=== PATIENT | female | born 1940 | race Caucasian/White ===

== ENCOUNTER → 2016-12-12 | Outpatient (CLI) | payer OTHER ==
[~2016-12-12] MED LIST: ALBU1AER9 INH; ASPI-435 PO; BUPR-79 PO; BUSP30TA2 PO; CHOL200010 PO; CLON0.5T3 PO; DULO60CA44 PO; ELET40TA PO; ESTR1CRE PV; FLUT0.15 INTNAS; LEVO75TA PO; LIDO1PAD2 TOP; NABU500T3 PO; OMEP40CA41 PO; OXYB10TA PO; OXYC7.5T65 PO; POLY335019 PO; PREG75CA PO; RXC5 PO; SIMV40TA4 PO; ZOLP10TA6 PO
--- NOTE | 2016-12-12 15:50 | DIAGNOSTIC IMAGING REPORT ---
TWO VIEW CHEST CLINICAL HISTORY: Cough of several weeks' duration. FINDINGS: PA and lateral chest radiographs are compared to chest x-ray and chest CT dated 04/30/2015. The PA view is degraded by patient rotation. The cardiomediastinal silhouette is unremarkable. Chronic interstitial thickening is similar to previous. There are subtle airspace opacities throughout the right lung. The left lung appears clear. No pleural effusion or pneumothorax is seen. The skeletal structures are osteopenic. A right shoulder arthroplasty is in place. There is evidence of a lower thoracic compression deformity with previous vertebroplasty. IMPRESSION: Subtle airspace opacities are seen throughout the right lung. This likely represents a mild infectious/inflammatory pneumonitis. Clinical correlation will be required and radiographic follow-up to resolution is recommended. Electronically signed by: Nathaniel Maldonado M.D. 12/12/2016 3:48 PM Dictated Date/Time: 12/12/2016 3:46 PM
== END | disposition home or self-care (01) ==
LOC: C.RAD 15:22
PROVIDERS: ATTEND Physician Assistant
DX: R05 Cough (principal)

== ENCOUNTER → 2017-02-22 | Outpatient (CLI) | payer OTHER | END | disposition home or self-care (01) | LOC: C.LABSPEC 16:59 | PROVIDERS: ATTEND Podiatrist Foot & Ankle Surgery | DX: L60.0 Ingrowing nail (principal) ==

== ENCOUNTER → 2017-12-21 | Outpatient (CLI) | payer MEDICARE ==
[~2017-12-21] MED LIST changes: -ALBU1AER9 INH; +CLB/200 PO; -CLON0.5T3 PO; +CLON0.5T9 PO; -ESTR1CRE PV; -FLUT0.15 INTNAS; -LIDO1PAD2 TOP; +LIDO5CRE13 TOP; -NABU500T3 PO; -RXC5 PO; +VNTHFA/IN INH
--- NOTE | 2017-12-21 15:12 | DIAGNOSTIC IMAGING REPORT ---
CERVICAL SPINE 2 OR 3 VIEWS HISTORY: Preoperative evaluation PREOP, RHEUMATOID ARTHRITIS COMPARISON: None. FINDINGS: The cervical spine is visualized from C1 through the superior endplate of T1. There is no fracture. No significant subluxation on a positional basis. Considerable degenerative disc change Prevertebral soft tissues and the atlantodens interval are intact. IMPRESSION: No evidence for subluxation on a positional basis. Degenerative disc change throughout. The above report was generated using voice recognition software. It may contain grammatical, syntax or spelling errors. Electronically signed by: Austin Villagran M.D. 12/21/2017 3:11 PM Dictated Date/Time: 12/21/2017 3:11 PM
[2017-12-21 15:42] LABS: BASO % 0.5 %; BASO ABS # 0.05 K/uL (0-0.2); EOS % 2.1 %; HEMATOCRIT 37.8 % (37-47); HEMOGLOBIN 12.5 g/dL (12.0-16.0); IG# 0.06 K/uL (0.00-0.02); LYMPH % 31.1 %; LYMPH ABS # 2.93 K/uL (1.2-3.4); MEAN CELL VOLUME 94.7 fL (80-100); MEAN CORPUSCULAR HEMOGLOBIN 31.3 pg (25-34); MEAN CORPUSCULAR HGB CONC 33.1 g/dl (32-36); MEAN PLATELET VOLUME 9.6 fL (7.4-10.4); MONO % 9.2 %; MONO ABS # 0.87 K/uL (0.11-0.59); NEUT % 56.5 %; NEUT ABS # 5.31 K/uL (1.4-6.5); PLATELET COUNT 335 K/uL (130-400); RED CELL DISTRIBUTION WIDTH CV 13.3 % (11.5-14.5); RED CELL DISTRIBUTION WIDTH SD 46.7 fL (36.4-46.3); WHITE BLOOD COUNT 9.42 K/uL (4.8-10.8)
[2017-12-21 15:51] LABS: BLOOD UREA NITROGEN 15 mg/dl (7-18); CALCIUM 9.1 mg/dl (8.5-10.1); CARBON DIOXIDE 29 mmol/L (21-32); CREATININE 0.94 mg/dl (0.60-1.20); GLUCOSE 143 mg/dl (70-99); POTASSIUM 4.7 mmol/L (3.5-5.1); SODIUM 137 mmol/L (136-145)
[2017-12-21 15:54] LABS: PTT PATIENT 24.7 SECONDS (21.0-31.0)
== END | disposition home or self-care (01) ==
LOC: C.CPL 13:23
PROVIDERS: ATTEND Orthopaedic Surgery Sports Medicine
DX: Z01.818 Encounter for other preprocedural examination (principal); M06.9 Rheumatoid arthritis, unspecified

== ENCOUNTER 2019-02-13 18:30 | Inpatient (IN) ==
[2019-02-13] MEDS ORDERED: ONDANSETRON INJ 2 MG/ML 2 ML VIAL IV STA (18:52)
[2019-02-13] MEDS ORDERED: SODIUM CHLORIDE 0.9% 500 ML IV SCH (19:00)
--- NOTE | 2019-02-13 19:23 | Emergency Department Note ---
Entered by Ezekiel Shaw acting as a scribe for History of Present Illness General Chief complaint: Fall Stated complaint: FELL AT HOME,POSSIBLE STROKE Time Seen by Provider: 02/13/19 18:42 Source: patient and family (son) Limitations: no limitations History of Present Illness Onset (ago): hour(s) (From 10 hours to 2 hours) Location: abdomen Pain Consistency: + constant Maximum Pain Intensity: 5 Quality: + constant Associated symptoms: + nausea/vomiting and + other (back pain, different speech, fall) The patient is a 78 year old female who presents to the Emergency Room with complaints of constant abdominal pain. The patient's son states he came home at 1700 and saw that the patient was laying on the ground on her right side. He states he is unsure how long the patient was on the floor. The son states his saw the patient at 0900 and she was fine at that time. The patient states she remembers being on the floor and states she was on the floor for a long time. The patient states she vomited multiple times. She states she is nauseous. She notes she is unable to see. The patient's son states the patient attempted to overdose 3 times in the past. He states the patient is waiting for her med ication right now and is a couple days off her medication. The patient states she took all her medication she was supposed to take today. The son states the patient has been complaining about her back for the past week, but notes she has chronic back pain. The patient's son notes the patient's speech is not normal right now. The patient states she did not hurt anything and does not remember falling. Home Medications Home Medications Medication Instructions Recorded Confirmed Type levothyroxine 75 mcg PO QAM #0 tab 04/03/14 02/13/19 History omeprazole 40 mg PO QAM #0 cap 04/30/15 02/13/19 History simvastatin 40 mg PO HS #0 tab 04/30/15 02/13/19 History albuterol sulfate [ProAir HFA] 2 puff INHALATION Q4H PRN 03/27/18 02/13/19 History aspirin 81 mg PO DAILY 03/27/18 02/13/19 History cholecalciferol (vitamin D3) 2,000 unit PO DAILY 03/27/18 02/13/19 History [Vitamin D3] benzonatate [Tessalon Perles] 100 mg PO TID PRN 02/13/19 02/13/19 History buspirone 20 mg PO BID 02/13/19 02/13/19 History duloxetine 30 mg PO DAILY 02/13/19 02/13/19 History duloxetine 60 mg PO DAILY 02/13/19 02/13/19 History gabapentin 300 mg PO BID 02/13/19 02/13/19 History meclofenamate 100 mg PO BID 02/13/19 02/13/19 History olanzapine 5 mg PO HS 02/13/19 02/13/19 History oxybutynin chloride 10 mg PO DAILY 02/13/19 02/13/19 History sumatriptan succinate 25 mg PO DIRECTED PRN MDD 200 02/13/19 02/13/19 History MG/DAY zolpidem 5 mg PO HS 02/13/19 02/13/19 History Allergies Allergy/AdvReac Type Severity Reaction Status Date / Time hydroxychloroquine AdvReac Intermediate FULL BODY Verified 02/13/19 19:47 SWELLING Past Med/Surg History Medical History History of drug overdose (Chronic) History of suicide attempt (Chronic) History of migraine (Chronic) Hypertriglyceridemia (Chronic) ODIN (obstructive sleep apnea) (Chronic) Depression (Chronic) GERD (gastroesophageal reflux disease) (Chronic) Anxiety (Chronic) Bipolar disorder (Chronic) Fibromyalgia (Chronic) Osteoarthritis (Chronic) Hypothyroidism (Chronic) Diabetes mellitus (Chronic) Cardiac murmur Hx/o Chronic back pain Hyperlipidemia Rheumatoid arthritis Surgical History History of appendectomy (Resolved) History of total abdominal hysterectomy (Resolved) History of reverse total replacement of right shoulder joint (Resolved) Status post total knee replacement, left (Resolved) H/O kyphoplasty T 11 H/O: hysterectomy BSO History of right shoulder replacement History of total right knee replacement Hx of cataract surgery S/P appendectomy Status post breast reduction Family History Father Black lung disease Daughter Multiple sclerosis Suicide Son Paranoid schizophrenia Other No significant family history Social History Preferred Language: Faroese Communication Ability: Effective Visual Impairment: No Limitations [employer] Required: No Beliefs That Will Affect Care: Shinto Current Living Situation: Family Current Living Situation Comment: lives with son and daughter in law Feels Safe at Home: Yes Smoking Status: Never smoker Second Hand Exposure: No ; Hx Alcohol Use: No Hx Substance Use: No Review of Systems See HPI for pertinent positives & negatives. and A total of 10 systems reviewed and were otherwise negative Physical Exam Vital Signs Vital Signs - 24 hr 02/13/19 18:32 02/13/19 20:35 Sepsis Recent Fever Within 48 Hours No Sepsis New/Unexplained Change in Mental Status No Sepsis Action Taken by Nursing No Action Required Pulse Rate 86 Pulse Rate [Right Finger] 99 H Pulse Rhythm [Right Finger] Regular Pulse Strength [Right Finger] Normal Respiratory Rate 18 16 Respiratory Effort / Characteristics Non-Labored Non-Labored Respiratory Depth Normal Normal Respiratory Pattern Regular Blood Pressure 171/83 H Blood Pressure [Right Arm] 149/93 H Blood Pressure Mean 112 Blood Pressure Mean [Right Arm] 111 Blood Pressure Position [Right Arm] Lying Pulse Oximetry 93 94 Oxygen Delivery Method Room Air Room Air CONSTITUTIONAL/VITAL SIGNS: Reviewed / noted above. GENERAL: Non-toxic in appearance. Dried vomitus on the patient's face and nares. INTEGUMENTARY: Warm, dry, and [place]. HEAD: Normocephalic. EYES: without scleral icterus or trauma. ENT/OROPHARYNX: clear and moist. LYMPHADENOPATHY/NECK: Is supple without lymphadenopathy or meningismus. RESPIRATORY: Lungs clear and equal. CARDIOVASCULAR: Regular rate and rhythm. GI/ABDOMEN: Soft and nontender. No organomegaly or pulsatile mass. No rebound or guarding. Normal bowel sounds. EXTREMITIES: Warm and well perfused. BACK: No CVA tenderness. NEUROLOGICAL: Intact without focal deficits. PSYCHIATRIC: normal affect. MUSCULOSKELETAL: Normally developed with good muscle tone. Course 1842: The patient was evaluated in room A9B, and a complete history and physical examination were performed. 2128: I discussed the patient's case with Dr. Debora Parker Hospitalist. He will evaluate the patient for further management Administered Medications Discontinued Medications Sodium Chloride (Nss) 500 mls @ 999 mls/hr IV .Q31M BIANCA Stop: 02/13/19 19:30 Last Admin: 02/13/19 20:59 Dose: 999 mls/hr Documented by: [id number] Ondansetron HCl (Zofran) 4 mg IV NOW STA Stop: 02/13/19 18:53 Last Admin: 02/13/19 20:34 Dose: 4 mg Documented by: [id number] Medical Decision Making Differential Diagnosis Differential diagnoses includes but is not limited to gastroenteritis, food borne illness, infections, appendicitis, diverticulitis, inflammatory bowel disease, obstruction, GI bleed, biliary pathology, as well as others were entertained. Medical Records Attestation: I reviewed the patient's medical records. Home Medications Current Medication List: was personally reviewed by me Laboratory Data Attestation: I reviewed the patient's lab results. Result diagrams: 02/13/19 19:28 02/13/19 19:28 Lab Results 02/13/19 02/13/19 02/13/19 Range/Units 19:28 19:28 19:28 WBC 21.38 H (4.8-10.8) K/uL RBC 4.43 (4.2-5.4) M/uL Hgb 13.9 (12.0-16.0) g/dL Hct 41.1 (37-47) % MCV 92.8 (80-100) fL MCH 31.4 (25-34) pg MCHC 33.8 (32-36) g/dL RDW Std Deviation 45.5 (36.4-46.3) fL RDW Coeff of José Miguel 13.3 (11.5-14.5) % Plt Count 331 (130-400) K/uL MPV 8.8 (7.4-10.4) fL Immature Gran % (Auto) 1.0 % Neut % (Auto) 90.0 % Lymph % (Auto) 4.0 % [place] % (Auto) 4.8 % Eos % (Auto) 0.0 % Baso % (Auto) 0.2 % Immature Gran # (Auto) 0.21 H (0.00-0.02) K/uL Neut # (Auto) 19.24 H (1.4-6.5) K/uL Lymph # (Auto) 0.85 L (1.2-3.4) K/uL [place] # (Auto) 1.03 H (0.11-0.59) K/uL Eos # (Auto) 0.01 (0-0.5) K/uL Baso # (Auto) 0.04 (0-0.2) K/uL Sodium 139 (136-145) mmol/L Potassium 4.2 (3.5-5.1) mmol/L Chloride 101 (98-107) mmol/L Carbon Dioxide 28 (21-32) mmol/L Anion Gap 10.0 (3-11) BUN 13 (7-18) mg/dl Creatinine 0.78 (0.6-1.2) mg/dl Est Cr Clr Drug Dosing Not Reportable Est GFR ( Amer) 85.6 Est GFR (Non-Af Amer) 73.8 BUN/Creatinine Ratio 16.9 (10-20) Glucose 187 H (70-99) mg/dl Calcium 9.0 (8.5-10.1) mg/dl Magnesium 2.0 (1.8-2.4) mg/dl Total Bilirubin 0.4 (0.2-1) mg/dl AST 16 (15-37) U/L ALT 27 (12-78) U/L Alkaline Phosphatase 109 (45-117) U/L Total Creatine Kinase 58 (26-192) U/L Troponin I < 0.015 (0-0.045) ng/ml Total Protein 7.5 (6.4-8.2) gm/dl Albumin 3.8 (3.4-5.0) gm/dl Globulin 3.7 (2.5-4.0) gm/dl Albumin/Globulin Ratio 1.0 (0.9-2) Lipase 79 (73-393) U/L TSH 0.166 L (0.300-4.500) uIu/ml Free T4 1.23 (0.8-1.6) ng/dl Urine Color Urine Appearance (Clear) Urine pH (4.5-7.5) Ur Specific [place] (1.000-1.030) Urine Protein (Negative) Urine Glucose (UA) (Negative) Urine Ketones (Negative) Urine Blood (Negative) Urine Nitrite (Negative) Urine Bilirubin (Negative) Urine Urobilinogen (Negative) Ur Leukocyte Esterase (Negative) Acetaminophen < 2 L (10-30) ug/ml Ethyl Alcohol mg/dL (0-3) mg/dl 02/13/19 02/13/19 Range/Units 19:28 20:32 WBC (4.8-10.8) K/uL RBC (4.2-5.4) M/uL Hgb (12.0-16.0) g/dL Hct (37-47) % MCV (80-100) fL MCH (25-34) pg MCHC (32-36) g/dL RDW Std Deviation (36.4-46.3) fL RDW Coeff of José Miguel (11.5-14.5) % Plt Count (130-400) K/uL MPV (7.4-10.4) fL Immature Gran % (Auto) % Neut % (Auto) % Lymph % (Auto) % [place] % (Auto) % Eos % (Auto) % Baso % (Auto) % Immature Gran # (Auto) (0.00-0.02) K/uL Neut # (Auto) (1.4-6.5) K/uL Lymph # (Auto) (1.2-3.4) K/uL [place] # (Auto) (0.11-0.59) K/uL Eos # (Auto) (0-0.5) K/uL Baso # (Auto) (0-0.2) K/uL Sodium (136-145) mmol/L Potassium (3.5-5.1) mmol/L Chloride (98-107) mmol/L Carbon Dioxide (21-32) mmol/L Anion Gap (3-11) BUN (7-18) mg/dl Creatinine (0.6-1.2) mg/dl Est Cr Clr Drug Dosing Est GFR ( Amer) Est GFR (Non-Af Amer) BUN/Creatinine Ratio (10-20) Glucose (70-99) mg/dl Calcium (8.5-10.1) mg/dl Magnesium (1.8-2.4) mg/dl Total Bilirubin (0.2-1) mg/dl AST (15-37) U/L ALT (12-78) U/L Alkaline Phosphatase (45-117) U/L Total Creatine Kinase (26-192) U/L Troponin I (0-0.045) ng/ml Total Protein (6.4-8.2) gm/dl Albumin (3.4-5.0) gm/dl Globulin (2.5-4.0) gm/dl Albumin/Globulin Ratio (0.9-2) Lipase (73-393) U/L TSH (0.300-4.500) uIu/ml Free T4 (0.8-1.6) ng/dl Urine Color Yellow Urine Appearance Clear (Clear) Urine pH 7.0 (4.5-7.5) Ur Specific [place] 1.016 (1.000-1.030) Urine Protein Negative (Negative) Urine Glucose (UA) Negative (Negative) Urine Ketones Trace H (Negative) Urine Blood Negative (Negative) Urine Nitrite Negative (Negative) Urine Bilirubin Negative (Negative) Urine Urobilinogen Negative (Negative) Ur Leukocyte Esterase Negative (Negative) Acetaminophen (10-30) ug/ml Ethyl Alcohol mg/dL < 3.0 (0-3) mg/dl Imaging Data Radiologist's Impression: Radiology results as stated below per my review and the radiologist's interpretation: CT SCAN OF THE ABDOMEN AND PELVIS WITHOUT CONTRAST CLINICAL HISTORY: Unexplained vomiting COMPARISON STUDY: No previous studies for comparison. TECHNIQUE: CT scan of the abdomen and pelvis was performed from the lung bases to the proximal femurs. Images are reviewed in the axial, sagittal, and coronal planes. IV contrast was not administered for this examination. A dose lowering technique was utilized adhering to the principles of ALARA. CT DOSE: 1002.58 mGy.cm FINDINGS: Lower chest: There are right middle lobe opacities, statistically atelectatic. There are bilateral lower lobe atelectatic changes. Is a small hiatal hernia Liver: The unenhanced liver is normal in size, contour, and attenuation. There is no intrahepatic biliary ductal dilatation. Gallbladder: Gallbladder is of slightly increased density. Biliary sludge or calculi cannot be excluded. There is no wall thickening. Spleen: Normal in size and attenuation. Pancreas: Unremarkable. Adrenal glands: Unremarkable. Kidneys: No renal, ureteral, or bladder calculi identified. Bowel: There are no transition zones indicate bowel obstruction. There is no evidence of acute diverticulitis. There are scattered colonic diverticula present. There are no findings to indicate acute appendicitis. Peritoneum: There is no intraperitoneal free air or abdominal ascites. There is a small fat-containing umbilical hernia Vasculature: The abdominal aorta is normal in course and caliber. Adenopathy: None. Pelvic viscera: The uterus appears surgically absent Skeletal structures: There is a severe T11 compression fracture status post vertebroplasty. There is moderate retropulsion without spinal canal narrowing. There is inferior endplate T12 compression fracture which appears old. IMPRESSION: 1. No evidence of bowel obstruction. No evidence of free air 2. No acute inflammatory changes 3. No renal, ureteral, or bladder calculi identified 4. Old T11 compression fracture with moderate retropulsion and spinal canal narrowing. There is evidence for a prior vertebroplasty at this level Electronically signed by: Lamont Duque M.D. 02/13/2019 8:[address] head/brain wo con CLINICAL HISTORY: Vomiting, weakness. COMPARISON STUDY: 03/27/2018 TECHNIQUE: Axial CT of the brain is performed from the vertex to the skull base. IV contrast was not administered for this examination. A dose lowering technique was utilized adhering to the principles of ALARA. CT DOSE: FINDINGS: No intra or extra-axial mass lesions are visualized. There is no CT evidence of acute cortical infarction. There is no evidence of midline shift. There is no acute hemorrhage. No calvarial fractures are visualized. There are minimal white matter hypodensities likely on a small vessel basis. There is no evidence of pathologic ventricular dilatation. There is no evidence of acute sinusitis IMPRESSION: No acute intracranial findings Electronically signed by: Lamont Duque M.D. 02/13/2019 8:07 PM XR chest 1V portable CLINICAL HISTORY: weakness COMPARISON STUDY: 03/27/2018 FINDINGS: The heart is normal in size. There are bibasilar opacities left greater than right. Although likely atelectatic, infectious/inflammatory processes could appear similar. The upper lung zones are generally clear. There is no overt failure. There are no significant pleural effusions. There are postsurgical changes of a right reverse total shoulder arthroplasty. There is evidence for a prior vertebroplasty.[ IMPRESSION: 1. Increased basilar markings statistically atelectatic Electronically signed by: Lamont Duque M.D. 02/13/2019 7:48 PM ECG Data Attestation: I personally reviewed and interpreted this ECG as follows: Indication: abdominal pain, nausea and syncope Rate (beats per minute): 105 Rhythm: sinus tachycardia Findings: no ST elevation and no ectopy Blood Pressure Blood Pressure Findings: Elevated blood pressure Blood Pressure Disposition: further management by hospitalist SKYLAR Hamilton This is a 78-year-old female who presents to the ED with a chief complaint of nausea. The patient lives with her family but her family found her on the floor this evening. Her last known well was at 9 AM. She states that she was on the floor for a long time. The patient reports nausea. She states that she does not have any pain. She states that she has been vomiting today. She is somewhat of a poor historian. The son is present but cannot offer any additio nal information. She states that she was vomiting in the bag. He did not find any vomitus on the floor. The patient's initial blood pressure was elevated. Her physical exam did not reveal any abdominal tenderness. She has no obvious trauma. She does slur her speech which is not normal, per the son. The patient does not have any focal deficits on my exam. The patient's son states that she has slurred her speech in the past for various reasons including overdose of medication whether purposeful or by accident. Other than the slurring of the speech and somewhat difficult to understand, she does have some dried vomitus on the face. Her neurologic exam is otherwise without any focal deficits and her exam is without trauma. A CT scan of the head did not show acute process. CT scan of the abdomen and pelvis did not show any acute process. She has an old T11 compression fracture. White blood cell count is 21,000. Complete metabolic panel was unremarkable. Lipase is negative. Troponin was negative. Alcohol was negative. Tylenol level was negative. Urinalysis did not show infection. The patient was treated with some IV fluids as well as IV Zofran. She was told the results of the test. She continued having vomiting here. The patient was given IV Compazine for her continuation of vomiting. The patient will be seen by the hospitalist service for further evaluation and observation. The patient does have a leukocytosis. This could be related to just the vomiting. She has persistent vomiting and nausea. She is also having some slurred speech which is not normal for her. Impression & Plan Vomiting, Leukocytosis, Slurred speech Discharge Plan Visit Data Chief Complaint: Fall Stated Complaint: FELL AT HOME,POSSIBLE STROKE ED Provider: Eliud Davis Discharge Problem: Vomiting, Leukocytosis, Slurred speech Patient Disposition: Being Evaluated by Hospitalist Forms Stand Alone Forms: My [facility] Prescriptions Prescriptions: No Action levothyroxine 75 mcg Capsule 75 mcg PO QAM Qty: 0 RF: 0 omeprazole 40 mg Capsule,Delayed Release(Dr/Ec) 40 mg PO QAM Qty: 0 RF: 0 simvastatin 40 mg Tablet 40 mg PO HS Qty: 0 RF: 0 aspirin 81 mg Tablet,Delayed Release (Dr/Ec) 81 mg PO DAILY RF: 0 albuterol sulfate [ProAir HFA] 90 mcg/actuation Hfa Aerosol Inhaler 2 puff INHALATION Q4H PRN (Reason: Wheezing) RF: 0 cholecalciferol (vitamin D3) [Vitamin D3] 2,000 unit Capsule 2,000 unit PO DAILY RF: 0 buspirone 5 mg tablet 20 mg PO BID RF: 0 oxybutynin chloride 10 mg tablet extended release 24hr 10 mg PO DAILY RF: 0 sumatriptan succinate 25 mg tablet 25 mg PO DIRECTED MDD 200 MG/DAY PRN (Reason: Migraine Headache) RF: 0 olanzapine 5 mg tablet 5 mg PO HS RF: 0 zolpidem 5 mg tablet 5 mg PO HS RF: 0 gabapentin 100 mg capsule 300 mg PO BID RF: 0 meclofenamate 100 mg capsule 100 mg PO BID RF: 0 duloxetine 30 mg capsule,delayed release(DR/EC) 30 mg PO DAILY RF: 0 duloxetine 60 mg capsule,delayed release(DR/EC) 60 mg PO DAILY RF: 0 benzonatate [Tessalon Perles] 100 mg capsule 100 mg PO TID PRN (Reason: Cough) RF: 0 Referrals Referrals: PCP,NO [Primary Care Provider] - Discharge Problem: Vomiting Qualifiers: Vomiting type: unspecified Vomiting Intractability: non-intractable Nausea presence: unspecified Qualified Code(s): R11.10 - Vomiting, unspecified Leukocytosis Qualifiers: Leukocytosis type: unspecified Qualified Code(s): D72.829 - Elevated white blood cell count, unspecified The scribe's documentation has been prepared under my direction and personally reviewed by me in its entirety. I confirm that the note above accurately reflects all work, treatment, procedures, and medical decision making performed by me.
[2019-02-13 19:41] LABS: Basophils # (auto) 0.04 K/uL (0-0.2); Basophils % (auto) 0.2 %; Eosinophils # (auto) 0.01 K/uL (0-0.5); Hematocrit (blood only) 41.1 % (37-47); Hemoglobin 13.9 g/dL (12.0-16.0); Immature Granulocytes # (auto) 0.21 K/uL (0.00-0.02); Lymphocytes # (auto) 0.85 K/uL (1.2-3.4); Mean Corpuscular Hemoglobin 31.4 pg (25-34); Mean Corpuscular Hgb Conc 33.8 g/dL (32-36); Mean Corpuscular Volume 92.8 fL (80-100); Mean Platelet Volume 8.8 fL (7.4-10.4); Monocytes # (auto) 1.03 K/uL (0.11-0.59); Monocytes % (auto) 4.8 %; Neutrophils # (auto) 19.24 K/uL (1.4-6.5); Platelet Count 331 K/uL (130-400); RDW Coefficient of Variation 13.3 % (11.5-14.5); RDW Standard Deviation 45.5 fL (36.4-46.3); Red Blood Count 4.43 M/uL (4.2-5.4); White Blood Count 21.38 K/uL (4.8-10.8)
--- NOTE | 2019-02-13 19:49 | XRay Report ---
XR chest 1V portable CLINICAL HISTORY: weakness COMPARISON STUDY: 03/27/2018 FINDINGS: The heart is normal in size. There are bibasilar opacities left greater than right. Althoug h likely atelectatic, infectious/inflammatory processes could appear similar. The upper lung zones ar e generally clear. There is no overt failure. There are no significant pleural effusions. There are p ostsurgical changes of a right reverse total shoulder arthroplasty. There is evidence for a prior mac tebroplasty.[ IMPRESSION: 1. Increased basilar markings statistically atelectatic Electronically signed by: Lamont Duque M.D. 02/13/2019 7:48 PM
[2019-02-13 19:59] LABS: Alanine Aminotransferase 27 U/L (12-78); Albumin Level 3.8 gm/dl (3.4-5.0); Aspartate Aminotransferase 16 U/L (15-37); BUN Creatinine Ratio 16.9 (10-20); Blood Urea Nitrogen 13 mg/dl (7-18); Carbon Dioxide 28 mmol/L (21-32); Chloride 101 mmol/L (98-107); Est GFR (African American) 85.6; Est GFR (Non-African American) 73.8; Glucose 187 mg/dl (70-99); Lipase 79 U/L (73-393); Potassium 4.2 mmol/L (3.5-5.1); Sodium 139 mmol/L (136-145)
--- NOTE | 2019-02-13 20:09 | CT Scan Report ---
CT head/brain wo con CLINICAL HISTORY: Vomiting, weakness. COMPARISON STUDY: 03/27/2018 TECHNIQUE: Axial CT of the brain is performed from the vertex to the skull base. IV contrast was not administered for this examination. A dose lowering technique was utilized adhering to the principles of ALARA. CT DOSE: FINDINGS: No intra or extra-axial mass lesions are visualized. There is no CT evidence of acute cortical infarc tion. There is no evidence of midline shift. There is no acute hemorrhage. No calvarial fractures ar e visualized. There are minimal white matter hypodensities likely on a small vessel basis. There is no evidence of pathologic ventricular dilatation. There is no evidence of acute sinusitis IMPRESSION: No acute intracranial findings Electronically signed by: Lamont Duque M.D. 02/13/2019 8:07 PM
[2019-02-13 20:10] LABS: Alkaline Phosphatase 109 U/L (45-117); Bilirubin,Total 0.4 mg/dl (0.2-1); Creatine Kinase 58 U/L (26-192); Globulin 3.7 gm/dl (2.5-4.0); Thyroid Stimulating Hormone 0.166 uIu/ml (0.300-4.500); Total Protein 7.5 gm/dl (6.4-8.2); Troponin I < 0.015 ng/ml (0-0.045)
--- NOTE | 2019-02-13 20:20 | CT Scan Report ---
CT SCAN OF THE ABDOMEN AND PELVIS WITHOUT CONTRAST CLINICAL HISTORY: Unexplained vomiting COMPARISON STUDY: No previous studies for comparison. TECHNIQUE: CT scan of the abdomen and pelvis was performed from the lung bases to the proximal femurs . Images are reviewed in the axial, sagittal, and coronal planes. IV contrast was not administered fo r this examination. A dose lowering technique was utilized adhering to the principles of ALARA. CT DOSE: 1002.58 mGy.cm FINDINGS: Lower chest: There are right middle lobe opacities, statistically atelectatic. There are bilateral lo wer lobe atelectatic changes. Is a small hiatal hernia Liver: The unenhanced liver is normal in size, contour, and attenuation. There is no intrahepatic svitlana iary ductal dilatation. Gallbladder: Gallbladder is of slightly increased density. Biliary sludge or calculi cannot be exclud ed. There is no wall thickening. Spleen: Normal in size and attenuation. Pancreas: Unremarkable. Adrenal glands: Unremarkable. Kidneys: No renal, ureteral, or bladder calculi identified. Bowel: There are no transition zones indicate bowel obstruction. There is no evidence of acute divert iculitis. There are scattered colonic diverticula present. There are no findings to indicate acute ap pendicitis. Peritoneum: There is no intraperitoneal free air or abdominal ascites. There is a small fat-containin g umbilical hernia Vasculature: The abdominal aorta is normal in course and caliber. Adenopathy: None. Pelvic viscera: The uterus appears surgically absent Skeletal structures: There is a severe T11 compression fracture status post vertebroplasty. There is moderate retropulsion without spinal canal narrowing. There is inferior endplate T12 compression frac ture which appears old. IMPRESSION: 1. No evidence of bowel obstruction. No evidence of free air 2. No acute inflammatory changes 3. No renal, ureteral, or bladder calculi identified 4. Old T11 compression fracture with moderate retropulsion and spinal canal narrowing. There is evide nce for a prior vertebroplasty at this level Electronically signed by: Lamont Duque M.D. 02/13/2019 8:19 PM
[2019-02-13 20:23] LABS: T4 Free Thyroxine 1.23 ng/dl (0.8-1.6)
[2019-02-13 20:49] LABS: Appearance Urine Clear (Clear); Bilirubin Urine Negative (Negative); Blood Urine Negative (Negative); Color Urine Yellow; Glucose Urine UA Negative (Negative); Ketones Urine Trace (Negative); Leukocyte Esterase Urine Negative (Negative); Nitrite Urine Negative (Negative); Protein Urine Negative (Negative); Specific Gravity Urine 1.016 (1.000-1.030); Urobilinogen Urine Negative (Negative)
[2019-02-13] MEDS ORDERED: PROCHLORPERAZINE 5 MG in SYRINGE 4 ML IV ONE (21:52)
[2019-02-13] MEDS ORDERED: PROCHLORPERAZINE 5 MG/ML 2 ML VIAL ONE (21:55)
[2019-02-14] MEDS ORDERED: PHARMACIST DISCHARGE MED REC CONSULT PRN (00:07)
[2019-02-14] MEDS ORDERED: BENZONATATE 100 MG CAPSULE PO PRN (00:07)
[2019-02-14] MEDS ORDERED: SUMAtriptan succinate 25 MG TAB PO PRN (00:07)
[2019-02-14] MEDS ORDERED: NITROGLYCERIN SL 0.4 MG/TAB TAB SL PRN (00:07)
[2019-02-14] MEDS ORDERED: ONDANSETRON INJ 2 MG/ML 2 ML VIAL IV PRN (00:07)
[2019-02-14] MEDS ORDERED: POLYETHYLENE (MIRALAX) 17 GM PACK PO PRN (00:07)
[2019-02-14] MEDS ORDERED: AMPICILLIN/SULBACTAM CONSULT ACTIVE PRN (00:21)
[2019-02-14] MEDS ORDERED: ALBUTEROL HFA 8 GM INHALER INH PRN (00:30)
[2019-02-14] MEDS: ACETAMINOPHEN 325 MG TAB PO PRN ×3 (00:53→20:31)
[2019-02-14] MEDS: SODIUM CHLORIDE 0.9% 1000ML 1,000 ML IV SCH ×2 (00:53→15:47)
--- NOTE | 2019-02-14 00:56 | History and Physical Report ---
DATE OF ADMISSION: 02/13/2019 CHIEF COMPLAINT: Nausea, vomiting, fall and slurred speech. HISTORY OF PRESENT ILLNESS: This is a 78-year-old female with past medical history significant for diabetes, hypothyroidism, hyperlipidemia, nocturnal hypoxia, chronic nonspecific lung disease, gastroesophageal reflux disease, fibromyalgia, osteoarthrosis involving multiple sites, history of migraine, chronic pain, depression with anxiety, insomnia, bipolar 1 disorder and a history of drug overdose in the past who presents with nausea, vomiting, fall and slurred speech. The patient lives with her son. Apparently, psychiatrist started new medications which the dose was progressively increased and currently she is supposedly taking 100 mg tablet since last 4 days. Since then, she is having nausea and vomiting, but otherwise she was doing okay. The tfpkymoj-xf-[id number] saw her around 9 o'clock in the morning, she was fine. She was talking fine and she was walking okay. Then daughter in law left for work. When her son came back at 5 o'clock in the evening, she was found on the floor with vomitus around her mouth, and the patient was having some slurred speech and feeling very weak. She could not get up. They tried to put her in the chair, but she was leaning forward and falling down with somewhat imbalance and she was brought in here. Initially, she had some slurred speech that is getting better now. Initial CAT scan of the head is negative. White count is elevated at 21,000, but there is no obvious source of infection. CT scan of the abdomen and pelvis was unremarkable. Chest x-ray is unremarkable. Urinalysis was negative. The patient is afebrile and hemodynamically stable, alert and oriented. The patient does not remember when she fell. She states she might have passed out when she fell. The patient has a history of intentional drug overdose in the past and as per her son, sometimes, she also overdosed by mistake. She has a history of depression, but today, she states she has not taken any extra medications. She also ran out of her medications and she did not take her medications for about a day now but still was taking he new prescription given by psychiatry recently. No fever. No chills. No cough. No headaches. No blurred vision. No earache. No runny nose. No sore throat. No chest pain. No shortness of breath. No abdominal pain. She states she is constipated, but she moves her bowels every couple of days. No burning micturition. Normal bladder movements. No rash. No swelling in the legs. ALLERGIES: PLAQUENIL. PAST MEDICAL HISTORY: As mentioned above. PAST SURGICAL HISTORY: Right total knee arthroplasty, colonoscopy, reduction of breasts, appendectomy, cataract surgery, fusion of the upper eyelid, injection of the sacroiliac joint and total abdominal hysterectomy with removal of tubes. MEDICATIONS: The patient is on Prilosec 40 mg p.o. daily, Ditropan XL 10 mg p.o. daily, Zocor 40 mg p.o. at bedtime, meclofenamate sodium 100 mg p.o. b.i.d., albuterol 2 puffs every 4 hours p.r.n., levothyroxine 75 mcg p.o. daily, gabapentin 300 mg p.o. t.i.d., sumatriptan 25 mg p.o. p.r.n., Tessalon Perles 100 mg p.o. t.i.d. p.r.n., Ambien 5 mg p.o. p.r.n., BuSpar 20 mg p.o. b.i.d., Cymbalta 90 mg p.o. daily, Zyprexa 5 mg p.o. at bedtime, albuterol nebulization every 4 hours p.r.n., vitamin D 2000 units p.o. daily and aspirin 81 mg p.o. daily. FAMILY HISTORY: Significant for mother had diabetes and heart disorder. Daughter has MS and committed suicide . Daughter has severe celiac and Sjogren's. SOCIAL HISTORY: , currently lives with her son. No smoking. No alcohol. No drug use. REVIEW OF SYMPTOMS: As per HPI. Rest of review of systems negative. PHYSICAL EXAMINATION: GENERAL: The patient is of moderate build, not in acute distress. VITAL SIGNS: Temperature afebrile, pulse 105, respiratory rate 16, blood pressure 145/69 and oxygen 96% on room air. HEENT: No pallor. No icterus. Pupils are equal, round and reactive to light. NECK: No JVD. No neck masses. No carotid bruits. CARDIOVASCULAR: S1, S2 heard. Regular rate and rhythm. No murmur. No gallop. RESPIRATORY SYSTEM: Normal AP diameter. No accessory muscle use. No wheezing. No crackles. ABDOMEN: Soft. Bowel sounds present. Nontender. No distention. CENTRAL NERVOUS SYSTEM: Alert and awake and oriented x3. Speech is somewhat slurred. Power 5/5 in all extremities. Sensation is intact. No pronator drift. Dcubgp-wr-jbqg test normal. Coordination of movements normal. Position sense intact. EXTREMITIES: No edema. No erythema. LABORATORY DATA: WBC 21, hemoglobin 13.9, hematocrit 41.1 and platelets 331. Sodium 139, potassium 4.2, chloride 101, bicarbonate 28, BUN 13, creatinine 0.7, serum glucose 187, calcium 9, magnesium 2, total bilirubin 0.4, AST 16, ALT 27 and alkaline phosphatase 109. Total creatinine kinase 58. Troponin I less than 0.015. Lipase 79. Thyroid stimulating hormone 0.166. Free T4 of 1.2. Urinalysis negative. Tylenol level less than 2. Ethyl alcohol less than 3. Chest x-ray, increased bibasilar markings possible inflammation/infection vs atelectasis. IMAGING: CT of the head, no acute findings. CT of abdomen and pelvis, no acute findings, old T11 compression fracture. Evidence of prior vertebroplasty at this level. Electrocardiogram, sinus tachycardia, rate of 105 and nonspecific T-wave abnormalities. ASSESSMENT AND PLAN: This is a 78-year-old female who presents with nausea, vomiting, fall and slurred speech. 1. Slurred speech, CT of the head is unremarkable. Rest of the neurologic examination is fine. The patient has a history of drug overdose in the past by intentional or unintentional, could be some other medication overdose or we will rule out stroke with MRI/MRA of the head ,MRA neck, echocardiogram. Neurology consult in a.m. Monitor on tele floor. We will continue home medications for now. She was recently started on a new medications. So, the family is going to get the name of the medication. 2. Leukocytosis, possible aspiration, we will empirically place on Unasyn and follow the response. Follow the cultures. 3. Diabetes, not on any medications. We will follow HbA1c levels. Currently, the patient is on clear liquid diet. We will follow the blood sugars.If needed to start on meds. 4. History of hyperlipidemia, continue statin. 5. Gastroesophageal reflux disease, continue Prilosec. 6. Depression with anxiety, continue home Cymbalta, buspirone and Zyprexa. If needed, we will consult Psychiatry. 7. History of migraines, on sumatriptan p.r.n. 8. History of bipolar disorder, on Zyprexa and Cymbalta.. 9. Fibromyalgia, on gabapentin. 10. Hypothyroidism, on Synthroid. Thyroid stimulating hormone is low, but free T4 is normal. Needs to follow up with primary care physician. 11. Deep venous thrombosis prophylaxis, sequential compression devices for now. 12. Disposition, admit to tele floor. Physical therapy and occupational therapy prior discharge. Expect to discharge home and follow up with the family doctor. Level 1 full code. Addendum: Family called and told the new medication is lamictal. She was supposed to take 100mg daily but son thinks she might be doubling on the dose as only 11 tablets left.Lamictal can cause nausea and vomiting possible slurred speech. Will follow levels. MTDD
[2019-02-14] MEDS: AMPICILLIN/SULBACTAM SOD 1,500 MG in 0.9 % SODIUM CHLORIDE 100 ML IV SCH ×4 (01:56→20:31)
[2019-02-14 04:43] LABS: Basophils # (auto) 0.03 K/uL (0-0.2); Basophils % (auto) 0.2 %; Eosinophils # (auto) 0.03 K/uL (0-0.5); Eosinophils % (auto) 0.2 %; Hematocrit (blood only) 36.1 % (37-47); Immature Granulocytes % (auto) 0.6 %; Lymphocytes # (auto) 1.31 K/uL (1.2-3.4); Lymphocytes % (auto) 8.4 %; Mean Corpuscular Hemoglobin 30.5 pg (25-34); Mean Corpuscular Hgb Conc 33.2 g/dL (32-36); Mean Corpuscular Volume 91.6 fL (80-100); Mean Platelet Volume 8.9 fL (7.4-10.4); Monocytes # (auto) 1.16 K/uL (0.11-0.59); Monocytes % (auto) 7.4 %; Neutrophils # (auto) 13.01 K/uL (1.4-6.5); Neutrophils % (auto) 83.2 %; Platelet Count 334 K/uL (130-400); RDW Coefficient of Variation 13.3 % (11.5-14.5); RDW Standard Deviation 44.5 fL (36.4-46.3); Red Blood Count 3.94 M/uL (4.2-5.4); White Blood Count 15.64 K/uL (4.8-10.8)
[2019-02-14 05:01] LABS: BUN Creatinine Ratio 19.7 (10-20); Calcium 8.3 mg/dl (8.5-10.1); Creatinine Clr Calc Pharmacy 56.2 ml/min; Est GFR (African American) 100.5; Est GFR (Non-African American) 86.7; Potassium 3.9 mmol/L (3.5-5.1)
[2019-02-14] MEDS: LEVOTHYROXINE SODIUM 75 MCG TABLET PO SCH (06:09)
[2019-02-14 06:11] LABS: Estimated Average Glucose 171 mg/dl; Hemoglobin A1C 7.6 % (4.5-5.6)
[2019-02-14] MEDS ORDERED: INFLUENZA ADMINISTRATION CHARGE ONE (09:00)
[2019-02-14] MEDS ORDERED: MECLOFENAMATE PO SCH (09:00)
[2019-02-14] MEDS ORDERED: GABAPENTIN 300 MG CAP PO SCH (09:00)
[2019-02-14] MEDS ORDERED: DULOXETINE HCL 30 MG CAP PO SCH (09:00)
[2019-02-14] MEDS ORDERED: DULOXETINE HCL 60 MG CAP PO SCH (09:00)
[2019-02-14] MEDS ORDERED: ASPIRIN 81 MG ECTAB PO SCH (09:00)
[2019-02-14] MEDS ORDERED: INFLUENZA VIRUS QUAD VACCINE 0.5 ML SYR IM ONE (09:00)
[2019-02-14] MEDS ORDERED: OXYBUTYNIN CHLORIDE XL 5 MG TABCR PO SCH (09:00)
[2019-02-14] MEDS ORDERED: GADOBUTROL 65ML VIAL IV PRN (10:56)
--- NOTE | 2019-02-14 10:56 | Magnetic Resonance Report ---
MRA OF THE INTRACRANIAL CIRCULATION WITHOUT CONTRAST CLINICAL HISTORY: Possible cerebrovascular accident. Speech difficulty. Falls. COMPARISON STUDY: Head CT February 13, 2019. TECHNIQUE: Utilizing a 1.5 Camilla magnet and 3-D rgaa-pq-chjyto technique, unenhanced MRA of the intra cranial circulation was obtained. FINDINGS: The bilateral M1, M2, A1 and A2 segments are patent. Note is made of a 4 mm outpouching ariadna sing from the inferior aspect of the left cavernous carotid consistent with a small aneurysm. No richard tional intracranial aneurysms are identified. The intracranial portions of the bilateral vertebral ar teries are patent as is the basilar artery. The bilateral posterior cerebral arteries are intact. 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 Otherwise, unremarkable MRA of the head. Electronically signed by: Ron White M.D. 02/14/2019 10:55 AM
--- NOTE | 2019-02-14 11:14 | Magnetic Resonance Report ---
MR angio neck wo/w con CLINICAL HISTORY: 78 years-old Female presenting with fall, trouble speaking, slurring words, found d own, minor head injury, history of falls over the last year. TECHNIQUE: MR angiography of the neck was performed before and after the administration of intravenou s contrast. 3-D volumetric and/or maximum intensity projection (MIP) images were subsequently reconst ructed for review. IV contrast: 5 mL of Gadavist. Stenosis measurements were based on NASCET-like cri teria (distal lumen diameter as the denominator for stenosis measurement). COMPARISON: None. FINDINGS: Localizer images: Unremarkable. Aortic arch: Atherosclerosis of the three-vessel aortic arch. The origin of the left subclavian arter y is not included within the [id number]. Innominate artery: Patent. Right subclavian artery: Patent. Right common carotid artery: Patent. Right internal and external carotid arteries: Right carotid bifurcation patent. Right internal and ex ternal carotid arteries widely patent. Left common carotid artery: Patent. Left internal and external carotid arteries: Left carotid bifurcation patent. Left internal and exter nal carotid arteries widely patent. Left subclavian artery: Patent. Vertebral arteries: Codominant vertebral arteries. Origins and courses of the bilateral vertebral art eries patent. Other: Limited intracranial evaluation within normal limits. Soft tissues of the neck normal allowing for the phase of contrast. IMPRESSION: 1. No dissection, significant stenosis, or focal vessel occlusion. Electronically signed by: Roby Cueto M.D. 02/14/2019 11:13 AM
--- NOTE | 2019-02-14 11:16 | Magnetic Resonance Report ---
MR brain wo/w con CLINICAL HISTORY: 78 years-old Female presenting with cva?, History of falls over the last year, diff iculty speaking, slurring words, found down, minor head trauma. TECHNIQUE: Multisequence, multiplanar MR imaging of the brain was performed before and after the admi nistration of intravenous contrast. IV contrast: 5 mL of Gadavist. COMPARISON: None. FINDINGS: Localizer images: Unremarkable. Bone marrow signal intensity within the calvarium within normal limits. Normal midline sagittal structures. Ventricles and sulci normal in size. No mass effect or midline sh ift. No restricted diffusion or hemorrhage. Periventricular white matter T2/FLAIR hyperintensity, non specific but likely indicative of chronic small vessel ischemic change. No abnormal parenchymal enhan cement. No extra-axial fluid collection. T2 skull base flow voids preserved. Bilateral te-moak lenses are abse nt. IMPRESSION: 1. Chronic small vessel ischemic change. No acute intracranial pathology. No abnormal enhancement. Electronically signed by: Roby Cueto M.D. 02/14/2019 11:14 AM
--- NOTE | 2019-02-14 13:30 | Neurology Consultation ---
Date of Consultation February 14, 2019 Assessment & Plan (1) Slurred speech: 1. overdose - continue observation 2. PT/OT speech for discharge need 3. medication over site should be developed before discharge 4. slurred speech has resolved and continues to improve 5. MRI - negative for acute findings 6. 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 but for now the Lamictal seems to be the most reasonable single candidate although I suspect this is multifactorial and multi-substance in origin and will take some time to clear According to the she is better than she was last night when her speech was totally unintelligible and indeed she still has significant articulation issues but otherwise she is improving and at this point I am simply go to make one more visit tomorrow try to establish that she is on the road to improvement and then neurology will sign off the case and yield to psychiatry further suggestions about how to further manage the underlying psychiatric issues Of importance is the fact that we find absolutely no evidence for a vascular event or other structural disease of the central nervous system that might have caused this particular problem Eliud Goff MD History of Present Illness Requesting Physician: Cathleen Etienne MD Attending Physician: Cathleen Etienne MD History of Present Illness Faye is a 78 year old female with PMH: DM, hypothyroidism, hyperlipidemia, nocturnal hypoxia, chronic nonspecific lung disease, GERD, fibromyalgia, OA, migraine, chronic pain, depression with anxiety, insomnia, bipolar 1 disorder and a history of drug overdose in the past who presents with nausea, vomiting, fall and slurred speech. She lives with her son. Her psychiatrist Lamictal which the dose was progressively increased and currently she is supposedly taking 100 mg tablet since last 4 days. She is having nausea and vomiting, but otherwise she was doing okay. The aylzapfi-um-tyl saw her around 9 o'clock in the morning, she was fine. She was talking fine and she was walking okay. Then daughter in law left for work. When her son came back at 5 o'clock in the evening, she was found on the floor with vomitus around her mouth and slurred speech and feeling very weak. up. They tried to put her in the chair, but she was leaning forward and falling down with somewhat imbalance. She was brought into the ED she still had slurred speech that was improving. She has a history of intentional drug overdose in the past and an overdosed by mistake. Currently she is restless with some tremor in her hands. She states she didn't take to much of her medications denies CP, SOB, abdominal pain, one sided weakness, numbness tingling headache, bowel or bladder issues Allergies Allergy/AdvReac Type Severity Reaction Status Date / Time hydroxychloroquine AdvReac Intermediate FULL BODY Verified 02/13/19 19:47 SWELLING Home Medications Home Medications Medication Instructions Recorded Confirmed Type levothyroxine 75 mcg PO QAM #0 tab 04/03/14 02/13/19 History omeprazole 40 mg PO QAM #0 cap 04/30/15 02/13/19 History simvastatin 40 mg PO HS #0 tab 04/30/15 02/13/19 History albuterol sulfate [ProAir HFA] 2 puff INHALATION Q4H PRN 03/27/18 02/13/19 History aspirin 81 mg PO DAILY 03/27/18 02/13/19 History cholecalciferol (vitamin D3) 2,000 unit PO DAILY 03/27/18 02/13/19 History [Vitamin D3] benzonatate [Tessalon Perles] 100 mg PO TID PRN 02/13/19 02/13/19 History buspirone 20 mg PO BID 02/13/19 02/13/19 History duloxetine 30 mg PO DAILY 02/13/19 02/13/19 History duloxetine 60 mg PO DAILY 02/13/19 02/13/19 History gabapentin 300 mg PO BID 02/13/19 02/13/19 History meclofenamate 100 mg PO BID 02/13/19 02/13/19 History olanzapine 5 mg PO HS 02/13/19 02/13/19 History oxybutynin chloride 10 mg PO DAILY 02/13/19 02/13/19 History sumatriptan succinate 25 mg PO DIRECTED PRN MDD 200 02/13/19 02/13/19 History MG/DAY zolpidem 5 mg PO HS 02/13/19 02/13/19 History Patient History Medical History History of drug overdose (Chronic) History of suicide attempt (Chronic) History of migraine (Chronic) Hypertriglyceridemia (Chronic) ODIN (obstructive sleep apnea) (Chronic) Depression (Chronic) GERD (gastroesophageal reflux disease) (Chronic) Anxiety (Chronic) Bipolar disorder (Chronic) Fibromyalgia (Chronic) Osteoarthritis (Chronic) Hypothyroidism (Chronic) Diabetes mellitus (Chronic) Cardiac murmur Hx/o Chronic back pain Hyperlipidemia Rheumatoid arthritis Surgical History History of appendectomy (Resolved) History of total abdominal hysterectomy (Resolved) History of reverse total replacement of right shoulder joint (Resolved) Status post total knee replacement, left (Resolved) H/O kyphoplasty T 11 H/O: hysterectomy BSO History of right shoulder replacement History of total right knee replacement Hx of cataract surgery S/P appendectomy Status post breast reduction Family History Father Black lung disease Daughter Multiple sclerosis Suicide Son Paranoid schizophrenia Other No significant family history Social History Preferred Language: Indian Communication Ability: Effective Visual Impairment: No Limitations Art Glass 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 Required: No Beliefs That Will Affect Care: None Current Living Situation: Family Current Living Situation Comment: son Other Information That Helps Us Care for You: No Feels Safe at Home: Yes Smoking Status: Never smoker Second Hand Exposure: No ; Hx Alcohol Use: No Hx Substance Use: No Physical Exam Physical Exam: Physical Exam: appearance nourished, healthy restless Ears, Nose, Mouth and Throat: mucous membranes moist, no injection and skin normal, eyes normal Cardiovascular: normal S-1 and S-2 and regular rate and rhythm Respiratory: clear to auscultation (CTA) and no rales, ronchi or wheeze Musculoskeletal: no peripheral edema and good distal pulses Skin: no stigmata of neurocutaneous disease noted and normal and intact Eyes: extraocular muscles intact (EOMI) and pupils equal, round and reactive to light (PERRL) NEUROLOGIC EXAMINATION: Mental status: Alert and interactive Oriented 2019, knows she is in a hospital but no name of hospital Oriented to person Speech fluent with no evidence of aphasia Cranial Nerves smile eye brow raise symmetric Sensory: intact to light and cool touch gait/Stance: Posture lying in bed moving all extremities spontaneously. Motor: Negative for pronator drift of out stretched arms with eyes closed. 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300-4.500) uIu/ml Urine Ketones (Negative) Nasal Screen MRSA (PCR) (Negative) Acetaminophen < 2 L (10-30) ug/ml 02/13/19 02/14/19 02/14/19 Range/Units 20:32 00:01 04:12 WBC 15.64 H (4.8-10.8) K/uL RBC 3.94 L (4.2-5.4) M/uL Hct 36.1 L (37-47) % Immature Gran # (Auto) 0.10 H (0.00-0.02) K/uL Neut # (Auto) 13.01 H (1.4-6.5) K/uL Lymph # (Auto) (1.2-3.4) K/uL Hudson # (Auto) 1.16 H (0.11-0.59) K/uL Glucose (70-99) mg/dl Hemoglobin A1c (4.5-5.6) % Calcium (8.5-10.1) mg/dl TSH (0.300-4.500) uIu/ml Urine Ketones Trace H (Negative) Nasal Screen MRSA (PCR) Positive A (Negative) Acetaminophen (10-30) ug/ml 02/14/19 02/14/19 Range/Units 04:12 04:12 WBC (4.8-10.8) K/uL RBC (4.2-5.4) M/uL Hct (37-47) % Immature Gran # (Auto) (0.00-0.02) K/uL Neut # (Auto) (1.4-6.5) K/uL Lymph # (Auto) (1.2-3.4) K/uL Hudson # (Auto) (0.11-0.59) K/uL Glucose 141 H (70-99) mg/dl Hemoglobin A1c 7.6 H (4.5-5.6) % Calcium 8.3 L (8.5-10.1) mg/dl TSH (0.300-4.500) uIu/ml Urine Ketones (Negative) Nasal Screen MRSA (PCR) (Negative) Acetaminophen (10-30) ug/ml Diagnostic Findings CT abd/pelvis-No evidence of bowel obstruction. No evidence of free air No acute inflammatory changes No renal, ureteral, or bladder calculi identified Old T11 compression fracture with moderate retropulsion and spinal canal narrowing. There is evidence for a prior vertebroplasty at this level CT head-No acute intracranial findings CXR- Increased basilar markings statistically atelectatic MRI brain- Chronic small vessel ischemic change. No acute intracranial pathology. No abnormal enhancement. 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 Otherwise, unremarkable MRA neck-No dissection, significant stenosis, or focal vessel occlusion.
[2019-02-14] MEDS: PANTOprazole 40 MG TAB PO SCH (15:04)
[2019-02-14] MEDS: CHOLECALCIFEROL 1,000 UNITS TAB PO SCH (15:04)
--- NOTE | 2019-02-14 15:37 | Hospitalist Progress Note ---
Date of Service February 14, 2019 Assessment & Plan (1) Altered mental status: (2) Intentional drug overdose: Suicidal attempt by intentional drug overdose Ambien and other meds unclear doses (other home meds include levothyroxine, aspirin, buspirone, duloxetin, gabapentin, olanzapine, sumatriptan, lamotrigine) Slurred speech and mental status much improved Tylenol and alcohol level on admission negative. CT/MRI/MRA - negative for CVA History of intentional drug overdose yesterday obtained now from patient. Son was not aware of this till now. Spoke with Poison control. Recommended monitoring for now LFTs were normal on admission. WIll repeat and monitor Get salicylate level UDS ordered Lamictal level ordered Continue telemetry monitoring Repeat EKG Will hold all antipsychotic med until seen by Psychiatry Psychiatry consult 1 to 1 observation (3) Bipolar 1 disorder: Currently depressed with suicidal attempt. Will appreciate psychiatry eval Other management as above (4) Hypothyroidism: TSH low Will continue levothyroxine and monitor Will need follow up with PCP for repeat TSH Subjective Patient seen and evaluated. She reported to me that she has been depressed for sometime, feels lonely and 'was fed up with everything'. She reported she took about 14 pills or more of ambien and other medications. She could not tell what other medications and how much she took. she could not state what time she took the medications. Son reported that patient was recently started on lamotrigine at 25mg daily and was increased to 100mg daily about 9 days ago. He stated he believes that she has been taking double the dose as there were only 11 pills left in the bottle. He stated she has been having nausea and abdominal discomfort for the past few days. Patient lives in the house with Son and son's and kids. She was last seen normal during breakfast yesterday until she was found altered around 5pm when son returned from work. He reported patient had had both intentional and unintentional drug overdose in the past. Patient reports feeling depressed. Denied any focal limb weakness, headaches. Reports chronic back pain Denied any fevers, chills, neck pain/stiffness Denied any urinary problems Review of Systems Review of Systems: All systems reviewed and unremarkable except for mentioned above. Physical Exam Physical Exam: General: Not in acute distress, still has slurred speech Eyes: PERRL, conjunctivae normal, not pale, anicteric sclerae, EOM intact bilaterally ENMT: External ear and nose normal, oropharynx normal Neck: Normal visual inspection, no tracheal deviation, no swelling noted Respiratory: Normal respiratory effort, no respiratory distress, lungs clear to auscultation, no crackles and no wheezes Cardiovascular: Pulse is RRR. S1 S2, no murmurs/rubs/gallops no pedal edema Chest (Breasts): Chest: normal inspection of chest Gastrointestinal (Abdomen): Abdomen is not distended, soft, non-tender to palpation, no guarding, no palpable hepatosplenomegaly, normal bowel sounds Musculoskeletal: No cyanosis or clubbing, all extremities motor strength 5/5 Genitourinary: Skin: No rash noted on gross inspection, No ulcers noted Neurologic: Alert and oriented x 2, No focal weakness, sensation grossly intact Psychiatric: Alert and oriented x 2, Flat affect Lymphatic: No cervical and axillary lymphadenopathy Results & Data Vital Signs (Past 12 Hours) Vital Signs Temp Pulse Pulse Resp BP BP Pulse Ox 02/14/19 12:04 36.7 C 97 H 21 122/62 92 02/14/19 07:44 36.9 C 101 H 12 127/73 92 02/14/19 04:00 36.9 C 100 H 20 125/66 92 Laboratory Results Laboratory Results - last 24 hr 02/13/19 02/13/19 02/13/19 19:28 19:28 19:28 WBC 21.38 H RBC 4.43 Hgb 13.9 Hct 41.1 MCV 92.8 MCH 31.4 MCHC 33.8 RDW Std Deviation 45.5 RDW Coeff of José Miguel 13.3 Plt Count 331 MPV 8.8 Immature Gran % (Auto) 1.0 Neut % (Auto) 90.0 Lymph % (Auto) 4.0 [facility] % (Auto) 4.8 Eos % (Auto) 0.0 Baso % (Auto) 0.2 Immature Gran # (Auto) 0.21 H Neut # (Auto) 19.24 H Lymph # (Auto) 0.85 L [facility] # (Auto) 1.03 H Eos # (Auto) 0.01 Baso # (Auto) 0.04 Sodium 139 Potassium 4.2 Chloride 101 Carbon Dioxide 28 Anion Gap 10.0 BUN 13 Creatinine 0.78 Est Cr Clr Drug Dosing Not Reportable Est GFR ( Amer) 85.6 Est GFR (Non-Af Amer) 73.8 BUN/Creatinine Ratio 16.9 Glucose 187 H Estimat Average Glucose Hemoglobin A1c Calcium 9.0 Magnesium 2.0 Total Bilirubin 0.4 AST 16 ALT 27 Alkaline Phosphatase 109 Total Creatine Kinase 58 Troponin I < 0.015 Total Protein 7.5 Albumin 3.8 Globulin 3.7 Albumin/Globulin Ratio 1.0 Triglycerides Cholesterol LDL Cholesterol, Calc VLDL Cholesterol, Calc HDL Cholesterol Cholesterol/HDL Ratio Lipase 79 TSH 0.166 L Free T4 1.23 Urine Color Urine Appearance Urine pH Ur Specific [place] Urine Protein Urine Glucose (UA) Urine Ketones Urine Blood Urine Nitrite Urine Bilirubin Urine Urobilinogen Ur Leukocyte Esterase Nasal Screen MRSA (PCR) Acetaminophen < 2 L Ethyl Alcohol mg/dL 02/13/19 02/13/19 02/14/19 19:28 20:32 00:01 WBC RBC Hgb Hct MCV MCH MCHC RDW Std Deviation RDW Coeff of José Miguel Plt Count MPV Immature Gran % (Auto) Neut % (Auto) Lymph % (Auto) [facility] % (Auto) Eos % (Auto) Baso % (Auto) Immature Gran # (Auto) Neut # (Auto) Lymph # (Auto) [facility] # (Auto) Eos # (Auto) Baso # (Auto) Sodium Potassium Chloride Carbon Dioxide Anion Gap BUN Creatinine Est Cr Clr Drug Dosing Est GFR ( Amer) Est GFR (Non-Af Amer) BUN/Creatinine Ratio Glucose Estimat Average Glucose Hemoglobin A1c Calcium Magnesium Total Bilirubin AST ALT Alkaline Phosphatase Total Creatine Kinase Troponin I Total Protein Albumin Globulin Albumin/Globulin Ratio Triglycerides Cholesterol LDL Cholesterol, Calc VLDL Cholesterol, Calc HDL Cholesterol Cholesterol/HDL Ratio Lipase TSH Free T4 Urine Color Yellow Urine Appearance Clear Urine pH 7.0 Ur Specific [place] 1.016 Urine Protein Negative Urine Glucose (UA) Negative Urine Ketones Trace H Urine Blood Negative Urine Nitrite Negative Urine Bilirubin Negative Urine Urobilinogen Negative Ur Leukocyte Esterase Negative Nasal Screen MRSA (PCR) Positive A Acetaminophen Ethyl Alcohol mg/dL < 3.0 02/14/19 02/14/19 02/14/19 04:12 04:12 04:12 WBC 15.64 H RBC 3.94 L Hgb 12.0 Hct 36.1 L MCV 91.6 MCH 30.5 MCHC 33.2 RDW Std Deviation 44.5 RDW Coeff of José Miguel 13.3 Plt Count 334 MPV 8.9 Immature Gran % (Auto) 0.6 Neut % (Auto) 83.2 Lymph % (Auto) 8.4 [facility] % (Auto) 7.4 Eos % (Auto) 0.2 Baso % (Auto) 0.2 Immature Gran # (Auto) 0.10 H Neut # (Auto) 13.01 H Lymph # (Auto) 1.31 [facility] # (Auto) 1.16 H Eos # (Auto) 0.03 Baso # (Auto) 0.03 Sodium 141 Potassium 3.9 Chloride 106 Carbon Dioxide 28 Anion Gap 7.0 BUN 13 Creatinine 0.64 Est Cr Clr Drug Dosing 56.2 Est GFR ( Amer) 100.5 Est GFR (Non-Af Amer) 86.7 BUN/Creatinine Ratio 19.7 Glucose 141 H Estimat Average Glucose 171 Hemoglobin A1c 7.6 H Calcium 8.3 L Magnesium Total Bilirubin AST ALT Alkaline Phosphatase Total Creatine Kinase Troponin I Total Protein Albumin Globulin Albumin/Globulin Ratio Triglycerides 105 Cholesterol 140 LDL Cholesterol, Calc 57 VLDL Cholesterol, Calc 21 HDL Cholesterol 62 Cholesterol/HDL Ratio 2 Lipase TSH Free T4 Urine Color Urine Appearance Urine pH Ur Specific [place] Urine Protein Urine Glucose (UA) Urine Ketones Urine Blood Urine Nitrite Urine Bilirubin Urine Urobilinogen Ur Leukocyte Esterase Nasal Screen MRSA (PCR) Acetaminophen Ethyl Alcohol mg/dL Diagnostic Findings EKG on admission - Sinus tachy, Left axis deviation, No ST-T changes, rate 105, SD 152, QRS 86, QTc 465 MRI Brain - Chronic small vessel ischemic change. No acute intracranial pathology. No abnormal enhancement. 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 Otherwise, unremarkable MRA of the head. MRA Neck - No dissection, significant stenosis, or focal vessel occlusion. CT brain -No acute intracranial findings CT cervical spine - No fractures/subluxation (1) Hypothyroidism Hypothyroidism type: unspecified Qualified Code(s): E03.9 - Hypothyroidism, unspecified (2) Altered mental status Altered mental status type: unspecified Qualified Code(s): R41.82 - Altered mental status, unspecified
[2019-02-14 16:37] LABS: Amphetamines+Metham, Urine Neg (Neg); Barbiturates, Urine Neg (Neg); Benzodiazepine, Urine Neg (Neg); Cocaine, Urine Neg (Neg); MDMA (Ecstacy), Urine Neg (Neg); Methadone, Urine Neg (Neg); Opiate, Urine Neg (Neg); Phencyclidine, Urine Neg (Neg)
[2019-02-14 16:48] LABS: Alanine Aminotransferase 21 U/L (12-78); Albumin Level 3.4 gm/dl (3.4-5.0); Alkaline Phosphatase 92 U/L (45-117); Aspartate Aminotransferase 16 U/L (15-37); Bilirubin Direct < 0.1 mg/dl (0-0.2); Bilirubin,Total 0.4 mg/dl (0.2-1); Total Protein 6.4 gm/dl (6.4-8.2)
--- NOTE | 2019-02-14 17:02 | Psychiatric Consultation ---
Date of Consultation February 14, 2019 Impression / Recommendations Impression The patient was brought to the emergency room after her son discovered that she was laying on her right side on the floor and seemed confused. She initially complained of pain and denied that she had taken an overdose of her medications. However, today the patient is acknowledging that she did, in fact, taken an overdose of Ambien and the overdose was intentional. She specifically says that the object was to because she is experiencing chronic pain and depression. She has a known diagnosis of bipolar 1 disorder and is taking a number of psychiatric medications including Ambien 5 mg at bedtime for sleep, buspirone 20 mg twice a day, Cymbalta (duloxetine) 90 mg a day, Zyprexa (olanzapine) 5 mg at bedtime, lamotrigine (Lamictal) 100 mg a day and as needed hydroxyzine. She is also taking Neurontin 300 mg twice a day but is not entirely clear if this is being used as a mood stabilizer or for chronic pain. Somatic diagnoses include hyperlipidemia, diabetes, hypothyroidism, gastroesophageal reflux disease, fibromyalgia, and osteoarthritis. Currently, the patient is being closely monitored in the intensive care unit. Our recommendation is to continue to hold her psychiatric medications as she continues to clear. Psychiatry will follow and at this point our expectation is that the patient will be transferred to the inpatient psychiatric service, depending on bed availability, when medically clear. We spoke to the patient about this recommendation and she indicated that she is in agreement with that. Inventory Assets Strengths: Supportive family. Motivated to recovery. Willing to cooperate with treatment. Needs: Mood stabilization. Improved individual coping strategies. Resolution of active suicidality. Risk Factors Assessment Male: No : Yes Do You Have Access To A Gun?: No (Patient reports that she does have guns, but according to record these guns are locked and the patient reportedly does not have access to them.) Health Problems: Yes Mental Health Diagnoses: Yes Substance Use Disorders: No Previous Attempt: Yes Previous Attempt; Highly Lethal: Yes Previous Attempt; Planned: Yes Previous Attempt; Didn't Tell Anyone: Yes Family History of Suicide: Yes Previous Psychiatric Hospitalization: Yes Hopelessness: No Protective Factors Assessment Anglican Beliefs: Yes (The patient identifies as "nondenominational.") : No Responsible for Young Children: No Employed: No (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 She was admitted to the intensive care unit after it was discovered that she had taken an intentional overdose of zolpidem (Ambien). Chief Complaint "I took an OD". History of Present Illness The patient is a 78 year old female who presented to the Emergency department on 02/13/2019 with complaints of constant abdominal pain. The patient's son stated that he had come home at 1700 and saw that the patient was laying on her right side, on the floor. He states he is unsure how long the patient was on the floor. The son noted that his had seen the patient at 0900 that morning and, in the 's estimation, the patient seemed to be fine at that time. The patient stated she remembers being on the floor and states she was on the floor for a long time. The patient further reported that she vomited multiple times and that she remained nauseated. Further, the patient complained of "not being able to see." The patient's son states the patient attempted to overdose 3 times in the past, and the patient, herself, says that she has overdosed intentionally on "at least 3, and may be 4" occasions in the past. Initially, the patient reported that she had taken her medications as prescribed and that if she had taken more than prescribed it would have been accidental. However, she has subsequently acknowledged that she deliberately took 14 zolpidem 5 mg tablets in a suicide attempt. Although the patient, the time of my evaluation, remained somewhat obtunded and fairly dysarthric, she does say that she was hoping to because of depression and chronic pain (primarily in her back). Past Psychiatric History Previous Psych History: The patient reports a history of "3 or maybe 4" suicide attempts by overdose in the past. She has a known diagnosis of bipolar disorder, as well as a history of multiple psychiatric hospitalizations. Her current psychiatric medications include Ambien 5 mg at bedtime, buspirone 20 mg twice a day, duloxetine 90 mg in the morning, olanzapine 5 mg at bedtime, lamotrigine 100 mg daily and an unspecified dose of hydroxyzine as needed for anxiety or sleep. Her outpatient psychiatrist is a Dr. Charles, and the patient notes that she recently learned that Dr. Charles is retiring and she will need to find another psychiatrist. She tells me that her diagnosis is "depression," but according to records the patient has a known diagnosis of bipolar 1 disorder. Current Psychiatric Diagnosis: Bipolar disorder Outpatient Services: Patient reports that she is currently followed by a Dr. Charles of [place], [place]. Previous Psych Admissions: Patient reports a history of multiple psychiatric hospitalizations, but had difficulty recalling names and dates. Do You Have Access To A Gun?: No (Patient reports that she does have guns, but according to record these guns are locked and the patient reportedly does not have access to them.) History of Previous Suicide Attempt: Yes Past Medication Trials: The only medication and the current medication that the patient was able to recall is diazepam. Additional Notes: [address] patient's sons [facility] and [place] and carries a diagnosis of paranoid schizophrenia. A daughter completed suicide a number of years ago. Allergies Allergy/AdvReac Type Severity Reaction Status Date / Time hydroxychloroquine AdvReac Intermediate FULL BODY Verified 02/13/19 19:47 SWELLING Home Medications Home Medications Medication Instructions Recorded Confirmed Type levothyroxine 75 mcg PO QAM #0 tab 04/03/14 02/13/19 History omeprazole 40 mg PO QAM #0 cap 04/30/15 02/13/19 History simvastatin 40 mg PO HS #0 tab 04/30/15 02/13/19 History albuterol sulfate [ProAir HFA] 2 puff INHALATION Q4H PRN 03/27/18 02/13/19 History aspirin 81 mg PO DAILY 03/27/18 02/13/19 History cholecalciferol (vitamin D3) 2,000 unit PO DAILY 03/27/18 02/13/19 History [Vitamin D3] benzonatate [Tessalon Perles] 100 mg PO TID PRN 02/13/19 02/13/19 History buspirone 20 mg PO BID 02/13/19 02/13/19 History duloxetine 30 mg PO DAILY 02/13/19 02/13/19 History duloxetine 60 mg PO DAILY 02/13/19 02/13/19 History gabapentin 300 mg PO BID 02/13/19 02/13/19 History meclofenamate 100 mg PO BID 02/13/19 02/13/19 History olanzapine 5 mg PO HS 02/13/19 02/13/19 History oxybutynin chloride 10 mg PO DAILY 02/13/19 02/13/19 History sumatriptan succinate 25 mg PO DIRECTED PRN MDD 200 02/13/19 02/13/19 History MG/DAY zolpidem 5 mg PO HS 02/13/19 02/13/19 History Family History Patient's son carries a diagnosis of schizophrenia. The patient reports that her daughter completed suicide several years ago. Substance Abuse History The patient reports that she does not have a history of substance misuse. The patient, however, is not necessarily considered to be a reliable deposition reporter because of her obtundation Personal History Living Arrangements: Home Living Arrangements Comments: The patient is and apparently lives alone, although her son and [id number] frequently check on her. Highest Grade Completed: Did Not Graduate High School Employment Status: Retired Marital Status: Beliefs That Will Affect Care: None Patient History Medical History History of drug overdose (Chronic) History of suicide attempt (Chronic) History of migraine (Chronic) Hypertriglyceridemia (Chronic) ODIN (obstructive sleep apnea) (Chronic) Depression (Chronic) GERD (gastroesophageal reflux disease) (Chronic) Anxiety (Chronic) Bipolar disorder (Chronic) Fibromyalgia (Chronic) Osteoarthritis (Chronic) Hypothyroidism (Chronic) Diabetes mellitus (Chronic) Cardiac murmur Hx/o Chronic back pain Hyperlipidemia Rheumatoid arthritis Surgical History History of appendectomy (Resolved) History of total abdominal hysterectomy (Resolved) History of reverse total replacement of right shoulder joint (Resolved) Status post total knee replacement, left (Resolved) H/O kyphoplasty T 11 H/O: hysterectomy BSO History of right shoulder replacement History of total right knee replacement Hx of cataract surgery S/P appendectomy Status post breast reduction Family History Father Black lung disease Daughter Multiple sclerosis Suicide Son Paranoid schizophrenia Other No significant family history Social History Preferred Language: Greenlandic Communication Ability: Effective Visual Impairment: No Limitations Network Strategist Required: No Beliefs That Will Affect Care: None Current Living Situation: Family Current Living Situation Comment: son Other Information That Helps Us Care for You: No Feels Safe at Home: Yes Smoking Status: Never smoker Second Hand Exposure: No ; Hx Alcohol Use: No Hx Substance Use: No Physical Exam Psychiatric: Orientation: oriented x 3 The patient is drowsy and comes in and out of sleep during the interview. She has, however, able to correctly give the date, her current location ([facility]), as well as her date of and her her current situation. Found in bed in a hospital gown. Eye Contact: + poor eye contact The patient is mildly obtunded, but in no acute distress. Motor Behavior: + psychomotor retardation The patient's speech is dysarthric, soft, and sometimes degenerates to the point that it becomes inaudible Affect: + flat affect Mood: + depressed mood Thought Process: + concrete thought process Thought Content: reality based without delusions No delusional material was identified and the patient's thought content. A full mental status was not possible because of the patient's drowsiness. The patient acknowledges that she took an overdose of "sleeping pills" that she later identified as "Ambien," and has said that she took as many as 14 Ambien tablets 5 mg in a suicide attempt. She does not answer when asked if she is still suicidal. Homicidal Thoughts: denies homicidal thoughts Hallucinations: no auditory hallucinations and no visual hallucinations It was difficult to provide a formal assessment of the patient's cognitive functioning. She is fully oriented to person, place, time and situation. Estimated Intelligence: average estimated intelligence Insight: + limited insight Judgement: + poor judgement Vital Signs (Past 24 Hours): Last Vital Signs Temp 36.7 C 02/14/19 12:04 Pulse 97 H 02/14/19 12:04 Resp 21 02/14/19 12:04 BP 122/62 02/14/19 12:04 Pulse Ox 92 02/14/19 12:04 Review of Systems All systems reviewed & are unremarkable except as noted in HPI & below Results & Data Medications Administered Acetaminophen (Tylenol) 650 mg PO Q4H PRN PRN Reason: Pain or Fever Stop: 03/16/19 00:06 Last Admin: 02/14/19 13:06 Dose: 650 mg Documented by: [id number] Admin: 02/14/19 00:53 Dose: 650 mg Documented by: [id number] Gadobutrol (Gadavist 65ml) 5.5 ml IV ONCE PRN PRN Reason: Interaction Checking Stop: 02/18/19 10:55 Last Admin: 02/14/19 10:56 Dose: 5.5 ml Documented by: [id number] Sodium Chloride (Nss 1000ml) 1,000 mls @ 100 mls/hr IV .Q10H BIANCA Stop: 03/16/19 00:06 Last Admin: 02/14/19 15:47 Dose: 100 mls/hr Documented by: [id number] Infusion: 02/14/19 10:53 Dose: 100 mls/hr Documented by: [id number] Admin: 02/14/19 00:53 Dose: 100 mls/hr Documented by: [id number] Ampicillin Sodium/Sulbactam Sodium 1,500 mg/ Sodium Chloride 104 mls @ 200 mls/hr IV Q6H BIANCA; Protocol Stop: 02/21/19 01:59 Last Infusion: 02/14/19 15:09 Dose: 0 mls/hr Documented by: [id number] Admin: 02/14/19 13:06 Dose: 200 mls/hr Documented by: [id number] Infusion: 02/14/19 09:08 Dose: 0 mls/hr Documented by: [id number] Admin: 02/14/19 08:33 Dose: 200 mls/hr Documented by: [id number] Infusion: 02/14/19 02:30 Dose: 0 mls/hr Documented by: [id number] Admin: 02/14/19 01:56 Dose: 200 mls/hr Documented by: [id number] Levothyroxine Sodium (Synthroid) 75 mcg PO DAILYBB BIANCA Stop: 03/16/19 06:29 Last Admin: 02/14/19 06:09 Dose: 75 mcg Documented by: [id number] Pantoprazole Sodium (Protonix) 40 mg PO DAILY BIANCA Stop: 03/16/19 08:59 Last Admin: 02/14/19 15:04 Dose: Not Given Documented by: [id number] Vitamin D (Vitamin D3) 2,000 units PO DAILY BIANCA Stop: 03/16/19 08:59 Last Admin: 02/14/19 15:04 Dose: Not Given Documented by: [id number]
[2019-02-14] MEDS: SIMVASTATIN 40 MG TAB PO SCH (20:31)
[2019-02-14] MEDS ORDERED: OLANZapine 5 MG TABLET PO SCH (21:00)
[2019-02-14] MEDS ORDERED: ZOLPIDEM TARTRATE 5 MG TAB PO SCH (21:00)
[2019-02-15] MEDS: AMPICILLIN/SULBACTAM SOD 1,500 MG in 0.9 % SODIUM CHLORIDE 100 ML IV SCH ×2 (01:37→09:06)
[2019-02-15] MEDS: SODIUM CHLORIDE 0.9% 1000ML 1,000 ML IV SCH ×3 (01:56→20:55)
[2019-02-15] MEDS: ACETAMINOPHEN 325 MG TAB PO PRN (04:11)
[2019-02-15] MEDS: LEVOTHYROXINE SODIUM 75 MCG TABLET PO SCH (05:43)
[2019-02-15 07:39] LABS: Basophils # (auto) 0.04 K/uL (0-0.2); Basophils % (auto) 0.5 %; Eosinophils # (auto) 0.16 K/uL (0-0.5); Hematocrit (blood only) 33.7 % (37-47); Hemoglobin 11.2 g/dL (12.0-16.0); Immature Granulocytes # (auto) 0.07 K/uL (0.00-0.02); Immature Granulocytes % (auto) 0.9 %; Lymphocytes # (auto) 1.49 K/uL (1.2-3.4); Lymphocytes % (auto) 18.5 %; Mean Corpuscular Hemoglobin 30.4 pg (25-34); Mean Corpuscular Hgb Conc 33.2 g/dL (32-36); Mean Corpuscular Volume 91.6 fL (80-100); Mean Platelet Volume 8.3 fL (7.4-10.4); Neutrophils # (auto) 5.48 K/uL (1.4-6.5); Neutrophils % (auto) 68.1 %; Platelet Count 277 K/uL (130-400); RDW Coefficient of Variation 13.3 % (11.5-14.5); RDW Standard Deviation 44.5 fL (36.4-46.3); Red Blood Count 3.68 M/uL (4.2-5.4); White Blood Count 8.04 K/uL (4.8-10.8)
[2019-02-15 08:12] LABS: BUN Creatinine Ratio 13.6 (10-20); Calcium 8.3 mg/dl (8.5-10.1); Creatinine Clr Calc Pharmacy 70.5 ml/min; Est GFR (African American) 108.3; Est GFR (Non-African American) 93.4
--- NOTE | 2019-02-15 08:34 | Hospitalist Progress Note ---
Date of Service February 15, 2019 Assessment & Plan (1) Altered mental status: (2) Intentional drug overdose: Suicidal attempt by intentional drug overdose Ambien and other meds unclear doses (other home meds include levothyroxine, aspirin, buspirone, duloxetin, gabapentin, olanzapine, sumatriptan, lamotrigine) Slurred speech has resolved. Mental status has returned to baseline. More interactive UDS screening and repeat salicylate levels negative. LFT normal CT/MRI/MRA - negative for CVA Supportive care Repeat EKG from yesterday evening noted and unremarkable Will continue to hold all antipsychotics. Will advance to regular diet today and monitor and start planning transfer to psychiatry service (3) Bipolar 1 disorder: Currently depressed with suicidal attempt. Will start transfer plans to Psychiatry once diet is advanced and tolerated well. Other management as above (4) Hypothyroidism: TSH low 0.166 on admission.T4 1.23 Will continue levothyroxine Will need follow up with PCP for continued management (5) History of migraine: Continue home meds Subjective Patient seen and evaluated. Slurred speech has completely resolved. Patient is more interactive this morning. Denied any focal weakness. Reports occasional chronic migraine headache. Still feels depressed. Review of Systems Review of Systems: All systems reviewed and unremarkable except for mentioned above. Physical Exam Physical Exam: General: Average body habitus, no acute distress and not ill appearing Eyes: PERRL, conjunctivae normal, not pale, anicteric sclerae, EOM intact bilaterally ENMT: External ear and nose normal, oropharynx normal Neck: Normal visual inspection, no tracheal deviation, no swelling noted Respiratory: Normal respiratory effort, no respiratory distress, lungs clear to auscultation, no crackles and no wheezes Cardiovascular: Pulse is RRR. Heart Sounds: normal S1 and normal S2; no murmurs. Extremities: no pedal edema Gastrointestinal (Abdomen): Abdomen is not distended, soft, non-tender to palpation, no guarding, no palpable hepatosplenomegaly, normal bowel sounds Musculoskeletal: No cyanosis or clubbing, all extremities motor strength 5/5 Genitourinary: Neurologic: Alert and oriented x 3, No slurred speech, No focal weakness, sensation grossly intact Psychiatric: Alert and oriented x 3, flat affect. Results & Data Vital Signs (Past 12 Hours) Vital Signs Temp Pulse Resp BP Pulse Ox 02/15/19 07:02 36.9 C 76 16 157/72 H 94 02/14/19 23:12 37.1 C 89 18 135/69 94 Laboratory Results Laboratory Results - last 24 hr 02/14/19 02/14/19 02/14/19 15:45 16:13 16:13 WBC RBC Hgb Hct MCV MCH MCHC RDW Std Deviation RDW Coeff of José Miguel Plt Count MPV Immature Gran % (Auto) Neut % (Auto) Lymph % (Auto) Swain % (Auto) Eos % (Auto) Baso % (Auto) Immature Gran # (Auto) Neut # (Auto) Lymph # (Auto) Swain # (Auto) Eos # (Auto) Baso # (Auto) Sodium Potassium Chloride Carbon Dioxide Anion Gap BUN Creatinine Est Cr Clr Drug Dosing Est GFR ( Amer) Est GFR (Non-Af Amer) BUN/Creatinine Ratio Glucose Calcium Total Bilirubin 0.4 Direct Bilirubin < 0.1 AST 16 ALT 21 Alkaline Phosphatase 92 Total Protein 6.4 Albumin 3.4 Salicylates Urine Opiates Screen Neg Ur Methadone, Qual Neg Urine Barbiturates Neg Lamotrigine Pending Ur Phencyclidine (PCP) Neg U Amphetamin/Meth Scrn Neg MDMA (Ecstasy) Screen Neg U Benzodiazepines Scrn Neg Ur Cocaine Metabolite Neg U Marijuana (THC) Screen Neg 02/14/19 02/15/19 02/15/19 16:13 07:26 07:26 WBC 8.04 RBC 3.68 L Hgb 11.2 L Hct 33.7 L MCV 91.6 MCH 30.4 MCHC 33.2 RDW Std Deviation 44.5 RDW Coeff of José Miguel 13.3 Plt Count 277 MPV 8.3 Immature Gran % (Auto) 0.9 Neut % (Auto) 68.1 Lymph % (Auto) 18.5 Swain % (Auto) 10.0 Eos % (Auto) 2.0 Baso % (Auto) 0.5 Immature Gran # (Auto) 0.07 H Neut # (Auto) 5.48 Lymph # (Auto) 1.49 Swain # (Auto) 0.80 H Eos # (Auto) 0.16 Baso # (Auto) 0.04 Sodium 142 Potassium 3.0 L D Chloride 109 H Carbon Dioxide 25 Anion Gap 7.0 BUN 7 D Creatinine 0.51 L Est Cr Clr Drug Dosing 70.5 Est GFR ( Amer) 108.3 Est GFR (Non-Af Amer) 93.4 BUN/Creatinine Ratio 13.6 Glucose 120 H Calcium 8.3 L Total Bilirubin Direct Bilirubin AST ALT Alkaline Phosphatase Total Protein Albumin Salicylates < 1.7 L Urine Opiates Screen Ur Methadone, Qual Urine Barbiturates Lamotrigine Ur Phencyclidine (PCP) U Amphetamin/Meth Scrn MDMA (Ecstasy) Screen U Benzodiazepines Scrn Ur Cocaine Metabolite U Marijuana (THC) Screen (1) Hypothyroidism Hypothyroidism type: unspecified Qualified Code(s): E03.9 - Hypothyroidism, unspecified (2) Altered mental status Altered mental status type: unspecified Qualified Code(s): R41.82 - Altered mental status, unspecified
[2019-02-15] MEDS: CHOLECALCIFEROL 1,000 UNITS TAB PO SCH (09:02)
[2019-02-15] MEDS: PANTOprazole 40 MG TAB PO SCH (09:02)
--- NOTE | 2019-02-15 10:33 | Communication Note ---
Date of Service: February 15, 2019 I saw Mrs. 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
[2019-02-15] MEDS ORDERED: POTASSIUM CHLORIDE 20 MEQ TABCR PO STA (19:39)
[2019-02-15] MEDS: SIMVASTATIN 40 MG TAB PO SCH (20:56)
[2019-02-16] MEDS: SODIUM CHLORIDE 0.9% 1000ML 1,000 ML IV SCH (05:13)
[2019-02-16 07:58] LABS: Basophils # (auto) 0.08 K/uL (0-0.2); Basophils % (auto) 0.9 %; Eosinophils # (auto) 0.46 K/uL (0-0.5); Eosinophils % (auto) 5.5 %; Hemoglobin 12.7 g/dL (12.0-16.0); Immature Granulocytes # (auto) 0.09 K/uL (0.00-0.02); Immature Granulocytes % (auto) 1.1 %; Lymphocytes # (auto) 1.96 K/uL (1.2-3.4); Lymphocytes % (auto) 23.3 %; Mean Corpuscular Hemoglobin 30.8 pg (25-34); Mean Corpuscular Hgb Conc 34.3 g/dL (32-36); Mean Corpuscular Volume 89.8 fL (80-100); Mean Platelet Volume 8.4 fL (7.4-10.4); Monocytes # (auto) 0.99 K/uL (0.11-0.59); Monocytes % (auto) 11.7 %; Neutrophils # (auto) 4.85 K/uL (1.4-6.5); Neutrophils % (auto) 57.5 %; Platelet Count 325 K/uL (130-400); RDW Coefficient of Variation 13.1 % (11.5-14.5); RDW Standard Deviation 43.1 fL (36.4-46.3); Red Blood Count 4.12 M/uL (4.2-5.4); White Blood Count 8.43 K/uL (4.8-10.8)
[2019-02-16 08:14] LABS: Albumin Level 3.4 gm/dl (3.4-5.0); BUN Creatinine Ratio 9.7 (10-20); Calcium 8.6 mg/dl (8.5-10.1); Creatinine Clr Calc Pharmacy 64.5 ml/min; Est GFR (Non-African American) 90.6; Potassium 3.3 mmol/L (3.5-5.1)
[2019-02-16 08:15] LABS: Prothrombin Time 10.3 Seconds (9.0-12.0)
[2019-02-16 08:17] LABS: Albumin Globulin Ratio 1.2 (0.9-2); Bilirubin,Total 0.5 mg/dl (0.2-1); Globulin 2.9 gm/dl (2.5-4.0); Total Protein 6.3 gm/dl (6.4-8.2)
[2019-02-16] MEDS: LEVOTHYROXINE SODIUM 75 MCG TABLET PO SCH (08:23)
[2019-02-16] MEDS: CHOLECALCIFEROL 1,000 UNITS TAB PO SCH (08:47)
[2019-02-16] MEDS: PANTOprazole 40 MG TAB PO SCH (08:47)
[2019-02-16] MEDS ORDERED: POTASSIUM CITRATE 10 MEQ TAB PO STA (10:23)
[2019-02-16] MEDS ORDERED: AMLODIPINE BESYLATE 5 MG TAB PO ONE (10:24)
--- NOTE | 2019-02-16 10:37 | Hospitalist Progress Note ---
Date of Service February 16, 2019 Assessment & Plan (1) Altered mental status: (2) Intentional drug overdose: Suicidal attempt by intentional drug overdose All psych meds on hold Slurred speech has resolved. Mental status has returned to baseline. More interactive Continue 1:1 observation Patient is ready to be discharged to psych whenever bed is available (3) Bipolar 1 disorder: Currently depressed with suicidal attempt. Will start transfer plans to Psychiatry once bed is available (4) Hypothyroidism: TSH low 0.166 on admission.T4 1.23 Will continue levothyroxine Will need follow up with PCP for continued management (5) History of migraine: Continue home meds (6) Hypertension: BP has been persistently elevated She reports that she was told she was hypertensive in the past but was not on any medications Will start amlodipine 5mg and monitor Subjective Patient reports feeling better. No dizziness, headache, blurred vision Slurred speech has resolved since first night. She reports she feels better she has people to talk to Still depressed. No suicidal ideation at this time Review of Systems Review of Systems: All systems reviewed and unremarkable except for mentioned above. Physical Exam Physical Exam: General: No acute distress and not ill appearing Eyes: PERRL, conjunctivae normal, not pale, anicteric sclerae, EOM intact bilaterally ENMT: External ear and nose normal, oropharynx normal Neck: Normal visual inspection, no tracheal deviation, no swelling noted Respiratory: Normal respiratory effort, no respiratory distress, lungs clear to auscultation, no crackles and no wheezes Cardiovascular: Pulse is RRR. S1 and 2. No pedal edema Gastrointestinal (Abdomen): Abdomen is not distended, soft, non-tender to palpation, no guarding, no palpable hepatosplenomegaly, normal bowel sounds Skin: No rash noted on gross inspection, No ulcers noted Neurologic: Alert and oriented x 3, No focal weakness, sensation grossly intact Psychiatric: Alert and oriented x 3, more interactive Results & Data Vital Signs (Past 12 Hours) Vital Signs Temp Pulse Pulse Resp BP BP Pulse Ox 02/16/19 07:18 37.1 C 78 1 L 18 156/67 H 93 02/16/19 05:00 36.9 C 76 20 170/79 H 96 02/15/19 23:08 36.7 C 72 18 161/78 H 96 (1) Hypothyroidism Hypothyroidism type: unspecified Qualified Code(s): E03.9 - Hypothyroidism, unspecified (2) Altered mental status Altered mental status type: unspecified Qualified Code(s): R41.82 - Altered mental status, unspecified
--- NOTE | 2019-02-16 10:51 | Psychiatric Progress Note ---
Date of Service February 16, 2019 Impression / Recommendations Impression Consult mentions Lamictal 100 mg but other med list/rec does not. Patient confirms dosing and would like to resume. Only missed 2 doses so would generally resume lamictal to avoid retitrating but on review of neuro consult, appears there is some concern it may have contributed to AMS and level is a send out/etc. She admits she may have taken extra misunderstanding how it works. Continues to meet criteria for inpatient hospitalization and agreeable to 201. Should not be allowed to leave hospital AMA given severity of OD and hx of prior attempt. Inventory Assets Strengths: Supportive family. Motivated to recovery. Willing to cooperate with treatment. Needs: Mood stabilization. Improved individual coping strategies. Resolution of active suicidality. Risk Factors Assessment Male: No : Yes Do You Have Access To A Gun?: No (Patient reports that she does have guns, but according to record these guns are locked and the patient reportedly does not have access to them.) Health Problems: Yes Mental Health Diagnoses: Yes Substance Use Disorders: No Previous Attempt: Yes Previous Attempt; Highly Lethal: Yes Previous Attempt; Planned: Yes Previous Attempt; Didn't Tell Anyone: Yes Family History of Suicide: Yes Previous Psychiatric Hospitalization: Yes Hopelessness: No Protective Factors Assessment Catholic Beliefs: Yes (The patient identifies as "holiness.") : No Responsible for Young Children: No Employed: No (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 Previously still sedated but had indicated OD was a suicide attempt and willingness to sign into psych unit. She is now clearer, eating well but still unsteady on feet requiring assist to bathroom which is not baseline gait. She would like to resume her medications, including Ambien and "the other one" which I assume is Neurontin. Reviewed that I would advise restarting Buspar, Cymbalta and Zyprexa at lower doses but do worry about misuse/abuse potential of the others. She also indicated Dr. Charles's intermediate as a stressor. Physical Exam Mental Examination The patient presented as alert and cooperative. The patient was casually dressed and groomed. Eye contact was fair. No psychomotor restlessness or agitation was noted. Speech was normal in rate, rhythm, and volume. Affect was pleasant, relates mood improving. Thought processes were clear, coherent and goal directed without evidence of loose associations or flight of ideas. Thought content/perception was reality based without delusions. The patient denied suicidal and homicidal ideation but related her previous attempt and clearly minimizing. The patient denied hallucinations and did not appear to be responding to internal stimuli. Cognition was grossly intact with orientation to person, place and time. Fund of Knowledge/Intelligence were consistent with level of education. Insight and Judgement were limited. Vital Signs (Past 24 Hours) Last Vital Signs Temp 37.1 C 02/16/19 07:18 Pulse 1 L 02/16/19 07:18 Resp 18 02/16/19 07:18 BP 156/67 H 02/16/19 07:18 Pulse Ox 93 02/16/19 07:18 Results & Data Laboratory Results Laboratory Results - last 24 hr 02/16/19 02/16/19 02/16/19 07:33 07:33 07:33 WBC 8.43 RBC 4.12 L Hgb 12.7 Hct 37.0 MCV 89.8 MCH 30.8 MCHC 34.3 RDW Std Deviation 43.1 RDW Coeff of José Miguel 13.1 Plt Count 325 MPV 8.4 Immature Gran % (Auto) 1.1 Neut % (Auto) 57.5 Lymph % (Auto) 23.3 Waller % (Auto) 11.7 Eos % (Auto) 5.5 Baso % (Auto) 0.9 Immature Gran # (Auto) 0.09 H Neut # (Auto) 4.85 Lymph # (Auto) 1.96 Waller # (Auto) 0.99 H Eos # (Auto) 0.46 Baso # (Auto) 0.08 PT 10.3 INR 1.0 Sodium 142 Potassium 3.3 L Chloride 109 H Carbon Dioxide 26 Anion Gap 6.0 BUN 5 L Creatinine 0.56 L Est Cr Clr Drug Dosing 64.5 Est GFR ( Amer) 105.0 Est GFR (Non-Af Amer) 90.6 BUN/Creatinine Ratio 9.7 L Glucose 139 H Calcium 8.6 Total Bilirubin 0.5 AST 20 ALT 21 Alkaline Phosphatase 93 Total Protein 6.3 L Albumin 3.4 Globulin 2.9 Albumin/Globulin Ratio 1.2 Current Inpatient Medications Current Inpatient Medications: Current Inpatient Medications Acetaminophen (Tylenol) 650 mg PO Q4H PRN PRN Reason: Pain or Fever Stop: 03/16/19 00:06 Last Admin: 02/15/19 04:11 Dose: 650 mg Documented by: Albuterol (Ventolin Hfa) 2 puffs INH Q4H PRN PRN Reason: SOB/WHEEZING Stop: 03/16/19 00:29 Amlodipine Besylate (Norvasc) 5 mg PO QAM BIANCA Stop: 03/18/19 10:29 Benzonatate (Tessalon Perle) 100 mg PO TID PRN PRN Reason: Cough Stop: 03/16/19 00:06 Gadobutrol (Gadavist 65ml) 5.5 ml IV ONCE PRN PRN Reason: Interaction Checking Stop: 02/18/19 10:55 Last Admin: 02/14/19 10:56 Dose: 5.5 ml Documented by: Levothyroxine Sodium (Synthroid) 75 mcg PO DAILYBB [facility] Stop: 03/16/19 06:29 Last Admin: 02/16/19 08:23 Dose: Not Given Documented by: Nitroglycerin (Nitrostat) 0.4 mg SL UD PRN PRN Reason: Chest Pain Stop: 03/16/19 00:06 Ondansetron HCl (Zofran) 4 mg IV Q6H PRN PRN Reason: Nausea Stop: 03/16/19 00:06 Pantoprazole Sodium (Protonix) 40 mg PO DAILY [facility] Stop: 03/16/19 08:59 Last Admin: 02/16/19 08:47 Dose: 40 mg Documented by: Polyethylene Glycol (Miralax Powder Packet) 17 gm PO DAILY PRN PRN Reason: Constipation Stop: 03/16/19 00:06 Simvastatin (Zocor) 40 mg PO HS [facility] Stop: 03/16/19 20:59 Last Admin: 02/15/19 20:56 Dose: 40 mg Documented by: Sumatriptan Succinate (Imitrex) 25 mg PO UD PRN PRN Reason: Migraine Headache Stop: 03/16/19 00:06 Vitamin D (Vitamin D3) 2,000 units PO DAILY [facility] Stop: 03/16/19 08:59 Last Admin: 02/16/19 08:47 Dose: 2,000 units Documented by: CPT Code CPT Code 87438
[2019-02-16] MEDS: DULOXETINE HCL 30 MG CAP PO SCH (11:18)
[2019-02-16] MEDS: AMLODIPINE BESYLATE 5 MG TAB PO SCH (11:19)
[2019-02-16] MEDS: ACETAMINOPHEN 325 MG TAB PO PRN (19:27)
[2019-02-16] MEDS: SIMVASTATIN 40 MG TAB PO SCH (20:59)
[2019-02-16] MEDS ORDERED: lamoTRIgine 25 MG TAB PO SCH (21:00)
[2019-02-16] MEDS ORDERED: OLANZAPINE 2.5 MG TAB PO SCH (21:00)
[2019-02-17] MEDS: LEVOTHYROXINE SODIUM 75 MCG TABLET PO SCH (05:55)
[2019-02-17 07:11] LABS: Albumin Level 3.4 gm/dl (3.4-5.0); Calcium 8.6 mg/dl (8.5-10.1); Creatinine Clr Calc Pharmacy 56.7 ml/min; Est GFR (Non-African American) 87.1; Potassium 3.1 mmol/L (3.5-5.1)
[2019-02-17 07:13] LABS: Bilirubin,Total 0.5 mg/dl (0.2-1); Globulin 3.4 gm/dl (2.5-4.0); Total Protein 6.8 gm/dl (6.4-8.2)
[2019-02-17] MEDS ORDERED: POTASSIUM CHLORIDE 20 MEQ TABCR PO STA (08:04)
[2019-02-17] MEDS: PANTOprazole 40 MG TAB PO SCH (08:18)
[2019-02-17] MEDS: CHOLECALCIFEROL 1,000 UNITS TAB PO SCH (08:19)
[2019-02-17] MEDS: AMLODIPINE BESYLATE 5 MG TAB PO SCH (08:20)
[2019-02-17] MEDS: DULOXETINE HCL 30 MG CAP PO SCH (08:20)
--- NOTE | 2019-02-17 09:05 | Hospitalist Progress Note ---
Date of Service February 17, 2019 Assessment & Plan (1) Altered mental status: (2) Intentional drug overdose: Suicidal attempt by intentional drug overdose Psych meds being resumed by Psychiatry Slurred speech has resolved. Mental status has returned to baseline. More interactive Continue 1:1 observation Being discharged to psychiatry unit today (3) Bipolar 1 disorder: Currently depressed with suicidal attempt. As above (4) Hypothyroidism: TSH low 0.166 on admission.T4 1.23 Will continue levothyroxine Will need follow up with PCP for continued management (5) History of migraine: Continue home meds (6) Hypertension: BP better controlled Amlodipine 5mg script sent to patient's own pharm Subjective No complaints today. Still depressed. No suicidal ideation at this time Review of Systems Constitutional: no problem reported Eyes: no problem reported Ear, Nose, Mouth, Throat: no problem reported Respiratory: no cough, no chest congestion and no dyspnea Cardiovascular: no chest pain, no palpitations and no edema Gastrointestinal: no problem reported Psychiatric: + depression; no suicidal ideation Physical Exam Physical Exam: General: No acute distress and not ill appearing Eyes: PERRL, conjunctivae normal, not pale, anicteric sclerae, EOM intact bilaterally ENMT: External ear and nose normal, oropharynx normal Neck: Normal visual inspection, no tracheal deviation, no swelling noted Respiratory: Normal respiratory effort, no respiratory distress, lungs clear to auscultation, no crackles and no wheezes Cardiovascular: Pulse is RRR. S1 and 2. No pedal edema Gastrointestinal (Abdomen): Abdomen is not distended, soft, non-tender to palpation, no guarding, no palpable hepatosplenomegaly, normal bowel sounds Skin: No rash noted on gross inspection, No ulcers noted Neurologic: Alert and oriented x 3, No focal weakness, sensation grossly intact Psychiatric: Alert and oriented x 3, Interactive Results & Data Vital Signs (Past 12 Hours) Vital Signs Temp Pulse Pulse Resp BP BP Pulse Ox 02/17/19 06:51 36.7 C 70 19 134/76 94 02/17/19 02:30 36.8 C 93 H 18 139/87 96 02/17/19 00:00 106 H 02/16/19 22:52 36.8 C 68 18 142/70 H 93 Laboratory Results Laboratory Results - last 24 hr 02/17/19 02/17/19 06:29 12:13 Sodium 141 140 Potassium 3.1 L 4.0 D Chloride 105 106 Carbon Dioxide 25 24 Anion Gap 11.0 10.0 BUN 8 10 Creatinine 0.63 0.72 Est Cr Clr Drug Dosing 56.7 49.6 Est GFR ( Amer) 101.0 94.3 Est GFR (Non-Af Amer) 87.1 81.3 BUN/Creatinine Ratio 13.0 13.6 Glucose 153 H 166 H Calcium 8.6 8.9 Total Bilirubin 0.5 AST 19 ALT 23 Alkaline Phosphatase 101 Total Protein 6.8 Albumin 3.4 Globulin 3.4 Albumin/Globulin Ratio 1.0 (1) Hypothyroidism Hypothyroidism type: unspecified Qualified Code(s): E03.9 - Hypothyroidism, unspecified (2) Altered mental status Altered mental status type: unspecified Qualified Code(s): R41.82 - Altered mental status, unspecified
[2019-02-17 13:00] LABS: BUN Creatinine Ratio 13.6 (10-20); Calcium 8.9 mg/dl (8.5-10.1); Creatinine Clr Calc Pharmacy 49.6 ml/min; Est GFR (African American) 94.3; Est GFR (Non-African American) 81.3
[2019-02-17] MEDS: ACETAMINOPHEN 325 MG TAB PO PRN (13:56)
--- NOTE | 2019-02-17 15:28 | Discharge Summary ---
Date of Service February 17, 2019 Admission HPI Per Admitting Provider The patient is a 78 year old female who presented to the Emergency department on 02/13/2019 with complaints of constant abdominal pain. The patient's son stated that he had come home at 1700 and saw that the patient was laying on her right side, on the floor. He states he is unsure how long the patient was on the floor. The son noted that his had seen the patient at 0900 that morning and, in the 's estimation, the patient seemed to be fine at that time. The patient stated she remembers being on the floor and states she was on the floor for a long time. The patient further reported that she vomited multiple times and that she remained nauseated. Further, the patient complained of "not being able to see." The patient's son states the patient attempted to overdose 3 times in the past, and the patient, herself, says that she has overdosed intentionally on "at least 3, and may be 4" occasions in the past. Initially, the patient reported that she had taken her medications as prescribed and that if she had taken more than prescribed it would have been accidental. However, she has subsequently acknowledged that she deliberately took 14 zolpidem 5 mg tablets in a suicide attempt. Although the patient, the time of my evaluation, remained somewhat obtunded and fairly dysarthric, she does say that she was hoping to because of depression and chronic pain (primarily in her back). Admission Exam Per Admitting Provider GENERAL: The patient is of moderate build, not in acute distress. VITAL SIGNS: Temperature afebrile, pulse 105, respiratory rate 16, blood pressure 145/69 and oxygen 96% on room air. HEENT: No pallor. No icterus. Pupils are equal, round and reactive to light. NECK: No JVD. No neck masses. No carotid bruits. CARDIOVASCULAR: S1, S2 heard. Regular rate and rhythm. No murmur. No gallop. RESPIRATORY SYSTEM: Normal AP diameter. No accessory muscle use. No wheezing. No crackles. ABDOMEN: Soft. Bowel sounds present. Nontender. No distention. CENTRAL NERVOUS SYSTEM: Alert and awake and oriented x3. Speech is somewhat slurred. Power 5/5 in all extremities. Sensation is intact. No pronator drift. [id number] test normal. Coordination of movements normal. Position sense intact. EXTREMITIES: No edema. No erythema. Principal Diagnosis Suicidal Attempt Intentional Drug overdose Toxic Encephalopathy due to medication overdose Major Depressive Disorder Hypertension Discharge Exam General: No acute distress and not ill appearing Eyes: PERRL, conjunctivae normal, not pale, anicteric sclerae, EOM intact bilaterally ENMT: External ear and nose normal, oropharynx normal Neck: Normal visual inspection, no tracheal deviation, no swelling noted Respiratory: Normal respiratory effort, no respiratory distress, lungs clear to auscultation, no crackles and no wheezes Cardiovascular: Pulse is RRR. S1 and 2. No pedal edema Gastrointestinal (Abdomen): Abdomen is not distended, soft, non-tender to palpation, no guarding, no palpable hepatosplenomegaly, normal bowel sounds Skin: No rash noted on gross inspection, No ulcers noted Neurologic: Alert and oriented x 3, No focal weakness, sensation grossly intact Psychiatric: Alert and oriented x 3, Interactive Discharge Data Allergies Allergy/AdvReac Type Severity Reaction Status Date / Time hydroxychloroquine AdvReac Intermediate FULL BODY Verified 02/13/19 19:47 SWELLING Consultations 02/13/19 22:08 ED Decision to Admit Stat 02/14/19 00:07 Consult Case Management - Discharge Planning Routine 02/14/19 08:00 Consult Neurology Routine 02/14/19 14:32 Consult Psychiatry Routine Ordered Studies 02/13/19 18:52 CT abd pelvis wo con Stat 1. No evidence of bowel obstruction. No evidence of free air 2. No acute inflammatory changes 3. No renal, ureteral, or bladder calculi identified 4. Old T11 compression fracture with moderate retropulsion and spinal canal narrowing. 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 Otherwise, unremarkable MRA of the head. MR angio neck wo/w con Urgent - No dissection, significant stenosis, or focal vessel occlusion. MR brain wo/w con Urgent - Chronic small vessel ischemic change. No acute intracranial pathology. No abnormal enhancement. Hospital Course (1) Altered mental status: (2) Intentional drug overdose: Toxic encephalopathy due to medication overdose. Suicidal attempt by intentional drug overdose Patient did report later when mental status started to improve that she overdosed on her home medications including ambien and antipsychotics. These medications were initially held. Multiple scans did not show any acute TIA/CVA. Slurred speech resolved over time and mental status returned to baseline She has been on 1:1 observation Was evaluated by psychiatry and being discharged to the Psych unit for optimization of psychiatric med and management of depression Psych meds being resumed by Psychiatry Discharged to psych unit (3) Bipolar 1 disorder: Currently depressed with suicidal attempt. As above (4) Hypothyroidism: TSH low 0.166 on admission.T4 1.23 Will continue levothyroxine Will need follow up with PCP for continued management (5) History of migraine: Continue home meds (6) Hypertension: Was started on amlodipine 5mg daily for hypertension Amlodipine 5mg script sent to patient's own pharm Total Time Total Time Spent Total Time Spent (In Minutes): 35 mins Total Time Includes: Examination of the Patient, Discharge Planning and Communication With Other Providers Discharge Plan Discharge Items Patient Disposition: Transfer Behavioral Health Fac Reason For Visit: FALL, SLURRED SPEECH, N/V Discharge Diagnosis: Suicidal Attempt Intentional Drug overdose Major Depressive Disorder Hypertension Condition on Discharge: Good Activity: Resume your previous activity Non-emergency contact: Primary Care Provider and Psychiatrist Call non-emergency contact if: you have any medication questions and your symptoms worsen Follow-up/Referrals: Steph Bella, DO [Physician] - PCP,NO [Primary Care Provider] - Diet: Carb Consistent or DM2 Addtl Attending Provider Instructions: Ms Dorsey. You were brought to the hospital after you were found down by your son. You were noted to have slurred speech. You had multiple scans (CT and MRI) did not show any strokes. You later reported you were depressed and overdosed on your psych medications and sleeping pills. All your psychiatric medications are currently on hold. You were also evaluated by Psychiatry. You are being discharged to the Psychiatry Unit for continued management of your Depression. While in the hospital, you were noted to be hypertensive and was started on amlodipine for your hypertension. Please continue taking this blood pressure medication and follow up with your Primary Doctor on discharge for continued management. It was a pleasure taking care of you. Pending Studies at Discharge: Yes Studies:: Lamotrigine level Stand-Alone Forms: [facility] Sk[facility] Items DNR: No Lines: None Urinary Catheter: No Medications and DC Order Prescriptions: New amlodipine [Norvasc] 5 mg Tablet 5 mg PO QAM 30 Days Qty: 30 RF: 1 buspirone 5 mg Tablet 5 mg PO BID17 Qty: 0 RF: 0 olanzapine 2.5 mg Tablet 2.5 mg PO HS Qty: 0 RF: 0 duloxetine 30 mg Capsule,Delayed Release(Dr/Ec) 30 mg PO QAM Qty: 0 RF: 0 Continued levothyroxine 75 mcg Capsule 75 mcg PO QAM Qty: 0 RF: 0 omeprazole 40 mg Capsule,Delayed Release(Dr/Ec) 40 mg PO QAM Qty: 0 RF: 0 simvastatin 40 mg Tablet 40 mg PO HS Qty: 0 RF: 0 aspirin 81 mg Tablet,Delayed Release (Dr/Ec) 81 mg PO DAILY RF: 0 albuterol sulfate [ProAir HFA] 90 mcg/actuation Hfa Aerosol Inhaler 2 puff INHALATION Q4H PRN (Reason: Wheezing) RF: 0 cholecalciferol (vitamin D3) [Vitamin D3] 2,000 unit Capsule 2,000 unit PO DAILY RF: 0 oxybutynin chloride 10 mg tablet extended release 24hr 10 mg PO DAILY RF: 0 sumatriptan succinate 25 mg tablet 25 mg PO DIRECTED MDD 200 MG/DAY PRN (Reason: Migraine Headache) RF: 0 benzonatate [Tessalon Perles] 100 mg capsule 100 mg PO TID PRN (Reason: Cough) RF: 0 Discontinued buspirone 5 mg tablet 20 mg PO BID RF: 0 olanzapine 5 mg tablet 5 mg PO HS RF: 0 zolpidem 5 mg tablet 5 mg PO HS RF: 0 gabapentin 100 mg capsule 300 mg PO BID RF: 0 meclofenamate 100 mg capsule 100 mg PO BID RF: 0 duloxetine 30 mg capsule,delayed release(DR/EC) 30 mg PO DAILY RF: 0 duloxetine 60 mg capsule,delayed release(DR/EC) 60 mg PO DAILY RF: 0 Discharge Orders: Discharge Order (Routine); Ordered 02/17/19 Ordered By: Cathleen Max/Other Patient Handouts: Diabetes Heart Disease, Diabetes Fpc Complications, Hyperglycemia, Hypoglycemia, Diabetes Resources, Diabetes Type 2 Coping, Diabetes Healthy Meals, Diabetes Carbs, Diabetes Keep Feet Healthy, Suicide Warning Signs What Do, Suicide Warning Signs Self, Diabetes Exercise Benefits, Diabetes Exercise Get Started, Diabetes Activity Tips, Diabetes Living Life, Diabetes Manage A1C Test Admission Data Admit Date/Time: 02/13/19 22:27 Attending Provider: Cathleen Etienne I. Admit Provider: Prasanna Cazares Primary Care Provider: PCP,NO Other Providers: Prasanna Cazares ; Olesya Rodriguez ; Eliud Goff ; Olesya Jeronimo ; Teto Aleman ; Dania Grider ; Richmond Mejía Other Interventions: Discharge Summary Assessment (RN) Last Done: 02/17/19 14:02 DC Date/Time DO NOT enter until pt leaves facility: 02/17/19 15:20
== END 2019-02-17 15:20 | DRG 917 ==
LOC: ED 18:30 → 1E 22:27 → 2E 02-14 19:07 → 2S 02-14 19:14

== ENCOUNTER 2019-02-17 13:50 | Inpatient (IN) ==
[2019-02-17] MEDS ORDERED: BISMUTH SUBSALICYLATE PER ML OMNICELL CHARGE PO PRN (14:55)
[2019-02-17] MEDS ORDERED: MAGNESIUM HYDROXIDE SUSP 30 ML UDC PO PRN (14:55)
[2019-02-17] MEDS ORDERED: SODIUM CHLORIDE 0.65% NA SOLN 45 ML (OCEAN) PRN (14:55)
[2019-02-17] MEDS ORDERED: ALUMINUM/MAGNESIUM SUSP 30 ML UDC PO PRN (14:55)
[2019-02-17] MEDS ORDERED: SUMAtriptan succinate 25 MG TAB PO PRN (14:56)
[2019-02-17] MEDS ORDERED: BENZONATATE 100 MG CAPSULE PO PRN (14:56)
[2019-02-17] MEDS ORDERED: ALBUTEROL HFA 8 GM INHALER INH PRN (14:56)
--- NOTE | 2019-02-17 15:28 | History & Physical ---
Date of Service February 17, 2019 Impression / Recommendations Impression 78-year-old female admitted medically on 02/13/19 after an intentional overdose of #14 tablets of Ambien 5mg. Pt admits that the overdose was an attempt to end her life, but denies significant psychosocial stressors leading her to this attempt. Largest recent stressor was reported to be side effects to a recent medication trial (reported to have been lamotrigine). Will attempt to involve patient's family to gather collateral information. Will also attempt to gather records from patient's outpatient prescriber. For now, we will resume patient's home medications and titrate them back to previous doses. Will consider further titration of duloxetine beyond home dose of 90mg or titration of olanzapine beyond reported home dose of "5 or 10mg." Pt will be encouraged to attend group and recreational programming, as well as attempt to develop healthy and effective coping strategies. Although her suicidal ideation has reportedly resolved, she is rather flippant about her serious suicide attempt and will require mitigation of risk factors to reduce risk of harm to self on an outpatient basis. Until then, inpatient psychiatric treatment is medically necessary. Dr. Ansley Christopher was directly involved in review and discussion of the patient's case and participated in medical decision making regarding treatment recommendations. (1) Intentional drug overdose: 02/17 - Admitted to a locked inpatient behavioral health unit, on q15 minute safety checks - Encourage medication initiation/adjustments as indicated - Encourage participation in group and recreational therapies - Gather collateral information from outpatient providers - Suggest family meeting to involve outpatient supports in safety planning - Arrange appropriate aftercare (2) Mood disorder: 02/17 - Differential diagnosis includes historical diagnosis of bipolar disorder, major depressive disorder, as well as - Continue home medication regimen: duloxetine to be titrated to 60mg (home dose reportedly 90mg); buspirone 10mg BID (home dose reportedly 20mg BID); and olanzapine 5mg qHS (home dose reportedly "either 5 or 10" per patient). - Fasting blood work completed on 02/14 - lipid panel WNL, estimated average glucose and A1c elevated - Coordinate care with outpatient psychiatrist; may need referral for a new provider in light of psychiatrist's long-term - Gather collateral information from family - Encourage attendance of group and recreational programming - Assist with development of healthy coping strategies (3) HLD (hyperlipidemia): 02/17 - Continue home dose of simvastatin 40mg qHS - Fasting lipid panel from 02/14 reviewed - all values WNL Hyperlipidemia type: unspecified Qualified Code(s): E78.5 - Hyperlipidemia, unspecified (4) GERD (gastroesophageal reflux disease): 02/17 - Continue pantoprazole 40mg daily, from the medical floor Esophagitis presence: esophagitis presence not specified Qualified Code(s): K21.9 - Gastro-esophageal reflux disease without esophagitis (5) Hypothyroidism: 02/17 - Continue home dose of levothyroxine 75mcg daily Hypothyroidism type: unspecified Qualified Code(s): E03.9 - Hypothyroidism, unspecified (6) Diabetes mellitus: 02/17 - Reported on medical floor, recommend following - Estimated average glucose - 171; HgbA1c - 7.6% Diabetes mellitus type: type 2 Diabetes mellitus assisted insulin use: without roasterman use Diabetes mellitus complication status: without complication Qualified Code(s): E11.9 - Type 2 diabetes mellitus without complications (7) Hypertension: 02/17 - Continue amlodipine 5mg qAM as initiated on the medical floor Hypertension type: essential hypertension Qualified Code(s): I10 - Essential (primary) hypertension Risk Factors Assessment Male: No : Yes Do You Have Access To A Gun?: No Mental Health Diagnoses: Yes Substance Use Disorders: No Previous Attempt: Yes Previous Psychiatric Hospitalization: Yes Hopelessness: Yes Smoker: No Protective Factors Assessment Orthodoxy Beliefs: Yes : No Responsible for Young Children: No Employed: No Supportive Family: Yes Good Rapport with Provider: Yes Psychiatric History Identifying Data FAYE VELAZQUEZ is a 78-year-old F who currently lives in [place], [place] with her son and his family. Pt has a reported history of bipolar disorder, and was admitted on 02/17/19 13:50 on a 201 voluntary commitment after being discharged from the medical floor where she was treated following an intention overdose. Pt had overdosed on #14 tablets of 5mg zolpidem. Chief Complaint "Oh my medications are probably all just the same. They had me trialing a new one, I was supposed to start at 10, then 20, then 100. It made me sick to my stomach." History of Present Illness Faye Velazquez (Patty) is a 78-year-old female admitted medically on 02/13/19 after being found unresponsive at home. Pt was found by her son, laying on the floor of their home in a pool of her vomit. During patient's medical admission, she had admitted to an intentional overdose prior to her ED presentation. Pt was treated for her overdose on the medical floor, and was transferred to [address] [place] [address] when medically cleared. Pt shares with this provider that she was started on a new medication 1 1/2 months prior to this admission. Pt does not recall the name of the medication, but states she was started "at 10, then 20, then 100. It made me sick to my stomach." She states that she experienced dizziness while on the medication, and states the medication also contributed to increased sedation. Pt states, "I started going to bed as soon as it got dark. I'd sleep from 5:00 until 8:00 in the morning." Pt reports that she was frustrated with how the medication was making her feel - "I was doing the trial, I started dragging my feet. The medication dragged me down to what I did." Pt states that other than her frustration with the perceived medication side effects - "I just woke up and realized it would be a whole day before nighttime when I could sleep, so I decided to end it all." When asked if she called anyone after her intentional overdose, she states "I didn't want to call, I didn't want anyone to find me." When asked about depressive symptoms, patient denies any significant changes recently aside from the perceived medication side effects and her increased desire for sleep. She denies noticeable changes in appetite, energy level, or other concerns. She denies significant anxiety recently. Aside from information reported above, patient denies any significant changes recently. She does not confirm any psychosocial stressors that she feels have been contributing - though admits her outpatient psychiatrist is retiring at the end of the month. Pt denies SI, HI, SIB, A/V hallucinations, paranoia, zeeshan/hypomania, OCD, PTSD, eating disorder, and other specific psychiatric symptoms. Past Psychiatric History Previous Psych History: Psychiatric history is unclear; reported history of bipolar disorder, but also historical diagnoses of depressive disorder. Current Psychiatric Diagnosis: Mood disorder; generalized anxiety disorder Outpatient Services: Psychiatrist - Dr. Charles - since 2009 Previous Psych Admissions: 2012 for drug overdose 03/2018 - [facility] - following suicide attempt by drug overdose Do You Have Access To A Gun?: No History of Previous Suicide Attempt: Yes Describe Attempts in the Past: overdose attempts Past Medication Trials: Per 03/2018 H&P: 1. Xanax 2. Ambien 3. Cymbalta 4. Klonopin 5. Wellbutrin 6. BuSpar 7. Trazodone 8. Lamictal 9. Zyprexa Past Head Trauma/Neuro History History of Concussion/Seizure: No Allergies Allergy/AdvReac Type Severity Reaction Status Date / Time hydroxychloroquine AdvReac Intermediate FULL BODY Verified 02/13/19 19:47 SWELLING Home Medications Home Medications Medication Instructions Recorded Confirmed Type levothyroxine 75 mcg PO QAM #0 tab 04/03/14 02/17/19 History omeprazole 40 mg PO QAM #0 cap 04/30/15 02/17/19 History simvastatin 40 mg PO HS #0 tab 04/30/15 02/17/19 History albuterol sulfate [ProAir HFA] 2 puff INHALATION Q4H PRN 03/27/18 02/17/19 History aspirin 81 mg PO DAILY 03/27/18 02/17/19 History cholecalciferol (vitamin D3) 2,000 unit PO DAILY 03/27/18 02/17/19 History [Vitamin D3] benzonatate [Tessalon Perles] 100 mg PO TID PRN 02/13/19 02/17/19 History oxybutynin chloride 10 mg PO DAILY 02/13/19 02/17/19 History sumatriptan succinate 25 mg PO DIRECTED PRN MDD 200 02/13/19 02/17/19 History MG/DAY amlodipine [Norvasc] 5 mg PO QAM 30 Days #30 tab 02/17/19 02/17/19 Rx buspirone 5 mg PO BID17 #0 tab 02/17/19 02/17/19 Rx duloxetine 30 mg PO QAM #0 cap 02/17/19 02/17/19 Rx olanzapine 2.5 mg PO HS #0 tab 02/17/19 02/17/19 Rx Family History Family History of: Psychosis/ThoughtDisorder (son with paranoid schizophrenia) and Suicide Completion (daugher, completed suicide after diagnosis of several medical conditions) Alcohol History Hx of Alcohol Use Over the Past 12 Months: No Pt denies alcohol use. Smoking Use Smoking Status: Never smoker Substance History Pt denies history of illicit substances. Personal History Living Arrangements: Home (with son, [id number], and granddaughters) Employment Status: Retired Marital Status: Number Of Children: 3 sons; 1 daughter () Beliefs That Will Affect Care: Orthodoxy Current Legal Problems: No Hx Legal Problems: No Hx Traumatic Life Events: No Patient History Medical History History of drug overdose (Chronic) History of suicide attempt (Chronic) History of migraine (Chronic) Hypertriglyceridemia (Chronic) ODIN (obstructive sleep apnea) (Chronic) Depression (Chronic) GERD (gastroesophageal reflux disease) (Chronic) Anxiety (Chronic) Bipolar disorder (Chronic) Fibromyalgia (Chronic) Osteoarthritis (Chronic) Hypothyroidism (Chronic) Diabetes mellitus (Chronic) Cardiac murmur Hx/o Chronic back pain Hyperlipidemia Rheumatoid arthritis Surgical History History of appendectomy (Resolved) History of total abdominal hysterectomy (Resolved) History of reverse total replacement of right shoulder joint (Resolved) Status post total knee replacement, left (Resolved) H/O kyphoplasty T 11 H/O: hysterectomy BSO History of right shoulder replacement History of total right knee replacement Hx of cataract surgery S/P appendectomy Status post breast reduction Family History Father Black lung disease Daughter Multiple sclerosis Suicide Son Paranoid schizophrenia Other No significant family history Social History Preferred Language: Vietnamese Communication Ability: Effective Visual Impairment: No Limitations Strategic Development Manager Required: No Beliefs That Will Affect Care: Orthodoxy Current Living Situation: Family Current Living Situation Comment: son Feels Safe at Home: Yes Smoking Status: Never smoker Second Hand Exposure: No ; Hx Alcohol Use: No Hx Substance Use: No Review of Systems Review of Systems: Constitutional: reports increased fatigue Cardiovascular: denied Respiratory: denied Gastrointestinal: reports history of GERD Neurological: reports history of migraines Psychiatric: denies symptoms other than stated above Musculoskeletal: reports back pain and arthritis in hands Total of at least 10 systems reviewed, pertinent positives as above and in HPI. Physical Exam Psychiatric: Orientation: alert, oriented x 3 and cooperative Apperance: appropriately dressed, appropriately groomed and appeared stated age Overweight appearing female, seated in no acute distress. Pt is appropriately dress in a sweater and scrub pants. Hair appears clean and well-styled. Level of hygiene appears adequate. Eye Contact: good eye contact Motor Behavior: steady gait and station and no abnormal motor movements Speech: normal rate/rhythm/volume of speech Affect: + blunted affect (not appearing overtly depressed); no anxious affect Mood: + depressed mood ("That medication made me more depressed") Thought Process: goal directed thought process, c lear/coherent thought process and thought association intact Thought Content: reality based without delusions Suicidal Thoughts: denies suicidal thoughts; + reports suicidal intent But admits to suicide attempt via overdose prior to admission was done with intent to end her life. Homicidal Thoughts: denies homicidal thoughts Hallucinations: no auditory hallucinations and no visual hallucinations Cognition: recent memory grossly intact and language grossly intact; + attention not intact Insight: + poor insight Judgement: + poor judgement Exam Statement: A physical exam was performed on the medical floor prior to admission to the unit by Dr. Cathleen Etienne MD. I accept that physical as correct/medical clearance for the inpatient physical exam. Results & Data Current Inpatient Medications Current Inpatient Medications: Current Inpatient Medications Acetaminophen (Tylenol) 650 mg PO Q4H PRN PRN Reason: Headache or Minor Fever Stop: 03/19/19 14:54 Al Hydrox/Mg Hydrox/Simethicone (Maalox) 30 ml PO Q4H PRN PRN Reason: GI Upset Stop: 03/19/19 14:54 Albuterol (Ventolin Hfa) 2 puffs INH Q4H PRN PRN Reason: Wheezing Stop: 03/19/19 14:55 Amlodipine Besylate (Norvasc) 5 mg PO QAM BIANCA Stop: 03/20/19 08:59 Aspirin (Ecotrin Ectab) 81 mg PO DAILY BIANCA Stop: 03/20/19 08:59 Benzonatate (Tessalon Perle) 100 mg PO TID PRN PRN Reason: Cough Stop: 03/19/19 14:55 Bismuth Subsalicylate (Kaopectate) 15 ml PO PRN PRN PRN Reason: Loose Stool Stop: 03/19/19 14:54 Hydroxyzine HCl (Vistaril) 25 mg PO Q4H PRN PRN Reason: Anxiety Stop: 03/19/19 14:54 Hydroxyzine HCl (Vistaril) 50 mg PO HSZ PRN PRN Reason: Insomnia Stop: 03/19/19 14:54 Levothyroxine Sodium (Synthroid) 75 mcg PO DAILYBB BIACNA Stop: 03/20/19 07:59 Magnesium Hydroxide (Milk Of Magnesia) 30 ml PO DAILY PRN PRN Reason: Constipation Stop: 03/19/19 14:54 Oxybutynin Chloride (Ditropan Xl) 10 mg PO DAILY BIANCA Stop: 03/20/19 08:59 Pantoprazole Sodium (Protonix) 40 mg PO QAM BIANCA Stop: 03/20/19 08:59 Simvastatin (Zocor) 40 mg PO HS BIANCA Stop: 03/19/19 21:59 Sodium Chloride ([place] Nasal) 1 - 2 sprays NA PRN PRN PRN Reason: Nasal Dryness/Congestion Stop: 03/19/19 14:54 Sumatriptan Succinate (Imitrex) 25 mg PO UD PRN PRN Reason: Migraine Headache Stop: 03/19/19 14:55 Vitamin D (Vitamin D3) 2,000 units PO DAILY BIANCA Stop: 03/20/19 08:59 CPT Code CPT Code Initial Hospital Care: [id number]
[2019-02-17] MEDS: SIMVASTATIN 40 MG TAB PO SCH (20:34)
[2019-02-17] MEDS: POLYETHYLENE (MIRALAX) 17 GM PACK PO PRN (20:37)
[2019-02-17] MEDS ORDERED: OLANZapine 5 MG TABLET PO SCH (22:00)
[2019-02-18] MEDS: ASPIRIN 81 MG ECTAB PO SCH (08:49)
[2019-02-18] MEDS: LEVOTHYROXINE SODIUM 75 MCG TABLET PO SCH (08:49)
[2019-02-18] MEDS: OXYBUTYNIN CHLORIDE XL 5 MG TABCR PO SCH (08:49)
[2019-02-18] MEDS: CHOLECALCIFEROL 1,000 UNITS TAB PO SCH (08:50)
[2019-02-18] MEDS: PANTOprazole 40 MG TAB PO SCH (08:50)
[2019-02-18] MEDS: AMLODIPINE BESYLATE 5 MG TAB PO SCH (08:50)
[2019-02-18] MEDS ORDERED: DULOXETINE HCL 60 MG CAP PO SCH (09:00)
--- NOTE | 2019-02-18 09:30 | Psychiatric Progress Note ---
Date of Service February 18, 2019 Impression / Recommendations Impression 78-year-old female admitted medically on 02/13/19 after an intentional overdose of #14 tablets of Ambien 5mg. Pt admits that the overdose was an attempt to end her life, but denies significant psychosocial stressors leading her to this attempt. Largest recent stressor was reported to be side effects to a recent medication trial (reported to have been lamotrigine). Will consider further titration of duloxetine beyond home dose of 90mg or titration of olanzapine beyond reported home dose of "5 or 10mg." Pt's family has requested assistance with looking into alternative housing options. Pt will also require referrals to outpatient providers, and a therapeutic case manager may be beneficial as well. Although her suicidal ideation has reportedly resolved, she is rather flippant about her serious suicide attempt and will require mitigation of risk factors to reduce risk of harm to self on an outpatient basis. Until then, inpatient psychiatric treatment is medically necessary. (1) Intentional drug overdose: 02/17 - Admitted to a locked inpatient behavioral health unit, on q15 minute safety checks - Encourage medication initiation/adjustments as indicated - Encourage participation in group and recreational therapies - Gather collateral information from outpatient providers - Suggest family meeting to involve outpatient supports in safety planning - Arrange appropriate aftercare 02/18 - Reporting ongoing hopelessness and SI this morning after having to recall information about her suicide attempt - Unable to contract for safety outside of the hospital setting (2) Mood disorder: 02/17 - Differential diagnosis includes historical diagnosis of bipolar disorder, major depressive disorder, as well as - Continue home medication regimen: duloxetine to be titrated to 60mg (home dose reportedly 90mg); buspirone 10mg BID (home dose reportedly 20mg BID); and olanzapine 5mg qHS (home dose reportedly "either 5 or 10" per patient). - Fasting blood work completed on 02/14 - lipid panel WNL, estimated average glucose and A1c elevated - Coordinate care with outpatient psychiatrist; may need referral for a new provider in light of psychiatrist's residential - Gather collateral information from family - Encourage attendance of group and recreational programming - Assist with development of healthy coping strategies 02/18 - Continue titration to home medication dosing - will titrate duloxetine to 90mg tomorrow morning, olanzapine to 10mg qHS and continue buspirone at 10mg BID - as mood concerns seem to be more prevalent than anxiety at present - Due to poor sleep (and discontinuation of zolpidem), will increase prn HS dose of hydroxyzine to 100mg. Will also have order available for 100mg of tra zodone if hydroxyzine is ineffective - titration of olanzapine may also prove beneficial for sleep (3) HLD (hyperlipidemia): 02/17 - Continue home dose of simvastatin 40mg qHS - Fasting lipid panel from 02/14 reviewed - all values WNL (4) GERD (gastroesophageal reflux disease): 02/17 - Continue pantoprazole 40mg daily, from the medical floor (5) Hypothyroidism: 02/17 - Continue home dose of levothyroxine 75mcg daily (6) Diabetes mellitus: 02/17 - Reported on medical floor, recommend following - Estimated average glucose - 171; HgbA1c - 7.6% 02/18 - Will follow blood glucose with daily glucometer checks before breakfast - Continue to follow to determine if addition of medications will be pursued (7) Hypertension: 02/17 - Continue amlodipine 5mg qAM as initiated on the medical floor 02/18 - BP has remained stable since admission to [facility] - Continue to monitor per daily vitals order Risk Factors Assessment Male: No : Yes Do You Have Access To A Gun?: No Mental Health Diagnoses: Yes Substance Use Disorders: No Previous Attempt: Yes Previous Psychiatric Hospitalization: Yes Hopelessness: Yes Smoker: No Protective Factors Assessment Presybeterian Beliefs: Yes : No Responsible for Young Children: No Employed: No Supportive Family: Yes Good Rapport with Provider: Yes Interval History Identifying Information MING VELAZQUEZ is a 78-year-old F who currently lives in [place], [place] with her son and his family. Pt has a reported history of bipolar disorder, and was admitted on 02/17/19 13:50 on a 201 voluntary commitment after being discharged from the medical floor where she was treated following an intention overdose. Pt had overdosed on #14 tablets of 5mg zolpidem. Chief Complaint "Oh, ok. It was good to get something in my stomach, it was just in knots all night." Review of Systems Notes Constitutional: reports difficulty falling asleep last evening Cardiovascular: denied Respiratory: denied Gastrointestinal: reports "my stomach has been in knots" Neurological: denied Psychiatric: denies symptoms other than stated above Total of at least 10 systems reviewed, pertinent positives as above and in HPI. Sleep Information Total Hours of Sleep: 4.75 Sleep Comments: pt given vistaril x2 per rn. pt on q-15 minute checks Meal Information Percent Meal Consumed - Breakfast: 50 Percent Meal Consumed - Dinner: 25 Subjective Subjective Patient was seen & assessed and interval progress reviewed with nursing and social work. Staff reports the patient has been minimizing her symptoms and has not addressed any particular stressors leading to her overdose. Collateral from [id number] suggested patient had been taking a higher Lamictal dosage than prescribed. Family is also concerned about the patient returning to their home, and alternative housing options are being considered. Pt was seen today to assess progress since admission. Pt states she is "ok", but admits that she has been "nervous" since her admission. Pt admits that her stomach is in "knots" and she has been "worked-up" since "answering all those questions yesterday." Pt reports that after having to recall the situation to staff during her admission process, she was feeling "empty inside", and admits to ongoing hopelessness and SI. She is able to contract for safety here in the hospital, but reports ongoing hopelessness surrounding her situation. Pt is agreeable to continuing to titrate her home medications to effective doses. She states she did not sleep last evening until "after 2:00." She received both prn doses of hydroxyzine, without reported benefit. Pt denies acute needs or concerns at this time, but admits to feeling comfortable reaching out to staff with any requests. Physical Exam Psychiatric Orientation: alert, oriented x 3 and cooperative (and pleasant) Apperance: appropriately dressed (in long-sleeve t-shirt and scrub pants), appropriately groomed and appeared stated age Eye Contact: good eye contact Motor Behavior: no abnormal motor movements (observed while sitting upright on edge of bed) Speech: normal rate/rhythm/volume of speech Affect: + blunted affect and mood congruent with affect Mood: + depressed mood ("I'm feeling pretty empty after answering all those questions") Thought Process: goal directed thought process, clear/coherent thought process and thought association intact Thought Content: reality based without delusions and + hopelessness Suicidal Thoughts: + reports suicidal thoughts (reporting passive SI/hopelessness last evening and today) Able to contract for safety on the unit Homicidal Thoughts: denies homicidal thoughts Hallucinations: no auditory hallucinations and no visual hallucinations Cognition: attention grossly intact and language grossly intact Insight: + limited insight Judgement: + fair judgement Vital Signs (Past 24 Hours) Last Vital Signs Temp 36.7 C 02/18/19 06:59 Pulse 112 H 02/18/19 07:00 Resp 20 02/18/19 06:59 BP 114/74 02/18/19 07:00 Results & Data Current Inpatient Medications Current Inpatient Medications: Current Inpatient Medications Acetaminophen (Tylenol) 650 mg PO Q4H PRN PRN Reason: Headache or Minor Fever Stop: 03/19/19 14:54 Al Hydrox/Mg Hydrox/Simethicone (Maalox) 30 ml PO Q4H PRN PRN Reason: GI Upset Stop: 03/19/19 14:54 Last Admin: 02/17/19 19:34 Dose: 30 ml Documented by: Albuterol (Ventolin Hfa) 2 puffs INH Q4H PRN PRN Reason: Wheezing Stop: 03/19/19 14:55 Amlodipine Besylate ([facility]asc) [facility] [place] Stop: 03/20/19 08:59 Last Admin: 02/18/19 08:50 Dose: 5 mg Documented by: Aspirin (Ecotrin Ectab) 81 mg PO DAILY [facility] Stop: 03/20/19 08:59 Last Admin: 02/18/19 08:49 Dose: 81 mg Documented by: Benzonatate (Tessalon Perle) 100 mg PO TID PRN PRN Reason: Cough Stop: 03/19/19 14:55 Bismuth Subsalicylate (Kaopectate) 15 ml PO PRN PRN PRN Reason: Loose Stool Stop: 03/19/19 14:54 Buspirone HCl (Buspar) 10 mg PO BID17 [facility] Stop: 03/19/19 16:59 Last Admin: 02/18/19 08:49 Dose: 10 mg Documented by: Duloxetine HCl (Cymbalta) 60 mg PO QAM [facility] Stop: 03/20/19 08:59 Last Admin: 02/18/19 08:49 Dose: 60 mg Documented by: Hydroxyzine HCl (Vistaril) 25 mg PO Q4H PRN PRN Reason: Anxiety Stop: 03/19/19 14:54 Last Admin: 02/17/19 16:53 Dose: 25 mg Documented by: Hydroxyzine HCl (Vistaril) 50 mg PO HSZ PRN PRN Reason: Insomnia Stop: 03/19/19 14:54 Last Admin: 02/17/19 22:46 Dose: 50 mg Documented by: Levothyroxine Sodium (Synthroid) 75 mcg PO DAILYBB [facility] Stop: 03/20/19 07:59 Last Admin: 02/18/19 08:49 Dose: 75 mcg Documented by: Magnesium Hydroxide (Milk Of Magnesia) 30 ml PO DAILY PRN PRN Reason: Constipation Stop: 03/19/19 14:54 Olanzapine (Zyprexa) 5 mg PO HS [facility] Stop: 03/19/19 21:59 Last Admin: 02/17/19 20:34 Dose: 5 mg Documented by: Oxybutynin Chloride (Ditropan Xl) 10 mg PO DAILY [facility] Stop: 03/20/19 08:59 Last Admin: 02/18/19 08:49 Dose: 10 mg Documented by: Pantoprazole Sodium (Protonix) 40 mg PO QAM [facility] Stop: 03/20/19 08:59 Last Admin: 02/18/19 08:50 Dose: 40 mg Documented by: Polyethylene Glycol (Miralax Powder Packet) 17 gm PO DAILY PRN PRN Reason: Constipation Stop: 03/19/19 19:38 Last Admin: 02/17/19 20:37 Dose: 17 gm Documented by: Simvastatin (Zocor) 40 mg PO HS [facility] Stop: 03/19/19 21:59 Last Admin: 02/17/19 20:34 Dose: 40 mg Documented by: Sodium Chloride ([place] Nasal) 1 - 2 sprays NA PRN PRN PRN Reason: Nasal Dryness/Congestion Stop: 03/19/19 14:54 Sumatriptan Succinate (Imitrex) 25 mg PO UD PRN PRN Reason: Migraine Headache Stop: 03/19/19 14:55 Vitamin D (Vitamin D3) 2,000 units PO DAILY [facility] Stop: 03/20/19 08:59 Last Admin: 02/18/19 08:50 Dose: 2,000 units Documented by: Post Discharge Appointments Primary Care Physician Name Of Family Doctor: Dr. Bella CPT Code CPT Code 21098 (1) Diabetes mellitus Diabetes mellitus complication status: without complication Diabetes mellitus ocean transportation intermediary insulin use: without alf use Diabetes mellitus type: type 2 Qualified Code(s): E11.9 - Type 2 diabetes mellitus without complications (2) HLD (hyperlipidemia) Hyperlipidemia type: unspecified Qualified Code(s): E78.5 - Hyperlipidemia, unspecified (3) Hypothyroidism Hypothyroidism type: unspecified Qualified Code(s): E03.9 - Hypothyroidism, unspecified (4) GERD (gastroesophageal reflux disease) Esophagitis presence: esophagitis presence not specified Qualified Code(s): K21.9 - Gastro-esophageal reflux disease without esophagitis (5) Hypertension Hypertension type: essential hypertension Qualified Code(s): I10 - Essential (primary) hypertension
[2019-02-18] MEDS: CAPSAICIN CR 0.075% 60 GM TUBE EXT PRN ×2 (13:12→19:47)
[2019-02-18] MEDS ORDERED: TRAZODONE HCL 100 MG TAB PO PRN (14:05)
[2019-02-18] MEDS: ACETAMINOPHEN 325 MG TAB PO PRN ×2 (16:20→20:52)
[2019-02-18] MEDS: CALCIUM CARBONATE 500 MG CHEWABLE TAB PO PRN ×2 (18:25→22:19)
[2019-02-18] MEDS: POLYETHYLENE (MIRALAX) 17 GM PACK PO PRN (20:51)
[2019-02-18] MEDS: SIMVASTATIN 40 MG TAB PO SCH (20:53)
[2019-02-18] MEDS: OLANZapine 10 MG TAB PO SCH (20:54)
[2019-02-19] MEDS: LEVOTHYROXINE SODIUM 75 MCG TABLET PO SCH (08:28)
[2019-02-19] MEDS: DULOXETINE HCL 30 MG CAP PO SCH (08:28)
[2019-02-19] MEDS: OXYBUTYNIN CHLORIDE XL 5 MG TABCR PO SCH (08:28)
[2019-02-19] MEDS: AMLODIPINE BESYLATE 5 MG TAB PO SCH (08:29)
[2019-02-19] MEDS: PANTOprazole 40 MG TAB PO SCH (08:29)
[2019-02-19] MEDS: ASPIRIN 81 MG ECTAB PO SCH (08:29)
[2019-02-19] MEDS: CHOLECALCIFEROL 1,000 UNITS TAB PO SCH (08:29)
[2019-02-19] MEDS: CAPSAICIN CR 0.075% 60 GM TUBE EXT PRN ×2 (12:21→17:04)
--- NOTE | 2019-02-19 12:51 | Psychiatric Progress Note ---
Date of Service February 19, 2019 Impression / Recommendations Impression 78-year-old female admitted medically on 02/13/19 after an intentional overdose of #14 tablets of Ambien 5mg. Pt admits that the overdose was an attempt to end her life, but denies significant psychosocial stressors leading her to this attempt. Largest recent stressor was reported to be side effects to a recent medication trial (reported to have been lamotrigine). Will consider further titration of duloxetine beyond home dose of 90mg or titration of olanzapine beyond reported home dose of "5 or 10mg." Pt's family has requested assistance with looking into alternative housing options. Pt will also require referrals to outpatient providers, and a nurse outreach case manager may be beneficial as well. Although her suicidal ideation has reportedly resolved, she is rather flippant about her serious suicide attempt and will require mitigation of risk factors to reduce risk of harm to self on an outpatient basis. Until then, inpatient psychiatric treatment is medically necessary. (1) Intentional drug overdose: 02/17 - Admitted to a locked inpatient behavioral health unit, on q15 minute safety checks - Encourage medication initiation/adjustments as indicated - Encourage participation in group and recreational therapies - Gather collateral information from outpatient providers - Suggest family meeting to involve outpatient supports in safety planning - Arrange appropriate aftercare 02/18 - Reporting ongoing hopelessness and SI this morning after having to recall information about her suicide attempt - Unable to contract for safety outside of the hospital setting (2) Mood disorder: 02/17 - Differential diagnosis includes historical diagnosis of bipolar disorder, major depressive disorder, as well as - Continue home medication regimen: duloxetine to be titrated to 60mg (home dose reportedly 90mg); buspirone 10mg BID (home dose reportedly 20mg BID); and olanzapine 5mg qHS (home dose reportedly "either 5 or 10" per patient). - Fasting blood work completed on 02/14 - lipid panel WNL, estimated average glucose and A1c elevated - Coordinate care with outpatient psychiatrist; may need referral for a new provider in light of psychiatrist's care home - Gather collateral information from family - Encourage attendance of group and recreational programming - Assist with development of healthy coping strategies 02/18 - Continue titration to home medication dosing - will titrate duloxetine to 90mg tomorrow morning, olanzapine to 10mg qHS and continue buspirone at 10mg BID - as mood concerns seem to be more prevalent than anxiety at present - Due to poor sleep (and discontinuation of zolpidem), will increase prn HS dose of hydroxyzine to 100mg. Will also have order available for 100mg of tra zodone if hydroxyzine is ineffective - titration of olanzapine may also prove beneficial for sleep 02/19 - Will continue duloxetine 90mg, which was started today - consider titration to 120mg in the next few days - Will increase buspirone to 15mg BID - as patient's primary concern today is anxiety - Continue olanzapine 10mg qHS - Pt did receive hydroxyzine 100mg last evening, in conjunction with titrated dose of olanzapine - reporting improved sleep - Family meeting with son scheduled for 02/21 (3) HLD (hyperlipidemia): 02/17 - Continue home dose of simvastatin 40mg qHS - Fasting lipid panel from 02/14 reviewed - all values WNL (4) GERD (gastroesophageal reflux disease): 02/17 - Continue pantoprazole 40mg daily, from the medical floor (5) Hypothyroidism: 02/17 - Continue home dose of levothyroxine 75mcg daily (6) Diabetes mellitus: 02/17 - Reported on medical floor, recommend following - Estimated average glucose - 171; HgbA1c - 7.6% 02/18 - Will follow blood glucose with daily glucometer checks before breakfast - Continue to follow to determine if addition of medications will be pursued (7) Hypertension: 02/17 - Continue amlodipine 5mg qAM as initiated on the medical floor 02/18 - BP has remained stable since admission to [facility] - Continue to monitor per daily vitals order Risk Factors Assessment Male: No : Yes Do You Have Access To A Gun?: No Mental Health Diagnoses: Yes Substance Use Disorders: No Previous Attempt: Yes Previous Psychiatric Hospitalization: Yes Hopelessness: Yes Smoker: No Protective Factors Assessment Gnosticist Beliefs: Yes : No Responsible for Young Children: No Employed: No Supportive Family: Yes Good Rapport with Provider: Yes Interval History Identifying Information MING VELAZQUEZ is a 78-year-old F who currently lives in [place], [place] with her son and his family. Pt has a reported history of bipolar disorder, and was admitted on 02/17/19 13:50 on a 201 voluntary commitment after being discharged from the medical floor where she was treated following an intention overdose. Pt had overdosed on #14 tablets of 5mg zolpidem. Chief Complaint "Eh, we can talk...as long as it's not overdone. I've already talked to so many people." Review of Systems Notes Constitutional: denied Cardiovascular: denied Respiratory: denied Gastrointestinal: denied Neurological: denied Psychiatric: denies symptoms other than stated above Musculoskeletal: reports knee pain Total of at least 10 systems reviewed, pertinent positives as above and in HPI. Sleep Information Total Hours of Sleep: 6.5 Sleep Comments: Patient was awake early. Meal Information Percent Meal Consumed - Breakfast: 100 Percent Meal Consumed - Lunch: 50 Percent Meal Consumed - Dinner: 100 Subjective Subjective Patient was seen & assessed and interval progress reviewed with treatment team. Staff report the patient has been informed that she will not be permitted to return to her son and [id number]'s home on discharge. She has not verbalized active suicidality, but admits to uncertainty about ability to keep herself safe. Pt is scheduled for a meeting on 02/21 with her son. Pt was seen today to assess progress since admission. Pt states she has had conversations with several people already today, and is "a little talked out." She admits that her mood is "not very good" today, as she is coping with her son informing her she is not permitted to live with them anymore. Patient states, "they're worried about the girls [pt's granddaughters] I guess, I get it - they should be." Pt states that despite this, she remains concerned about there not being an opening for the facilities they have looked at. Pt denies side effects from restart of her home medication regimen, but admits to being "shaken up inside, I need something for the anxiety." This provider discussed various options, including further titration of duloxetine, titration of buspirone, or titration of olanzapine. We also discussed signs and symptoms of serotonin syndrome, given patient's polypharmacy and anticipated medication adjustments. Pt verbalized desire to focus treatment on her anxiety, so will continue titration of buspirone to 15mg BID. We discussed that duloxetine titration may be beneficial for her anxiety as well, and can reassess this during her stay. Pt denies overt suicidal ideation, but admits, "I just don't know what comes next, I'm uncertain." She states she is not sure she would be able to keep herself safe outside of the hospital setting, "especially with no where to go." Pt denies needs or concerns, but states is planning to "rest today" due to exacerbated knee pain. Physical Exam Psychiatric Orientation: alert, oriented x 3 and cooperative Apperance: appropriately dressed, appropriately groomed and appeared stated age Eye Contact: good eye contact Motor Behavior: steady gait and station (cautious ambulation) and no abnormal motor movements Speech: normal rate/rhythm/volume of speech Affect: + blunted affect and mood congruent with affect Mood: + depressed mood ("Not very good" and "I'm just unsure") Thought Process: goal directed thought process, clear/coherent thought process and thought association intact Thought Content: reality based without delusions, + hopelessness and + guilt (regarding placing strain on her family) Suicidal Thoughts: denies suicidal thoughts (but admits to uncertainty, and therefore inability to contract for safety ) Hallucinations: no auditory hallucinations and no visual hallucinations Cognition: attention grossly intact and language grossly intact Estimated Intelligence: consistent with education level Insight: + limited insight Judgement: + fair judgement Vital Signs (Past 24 Hours) Last Vital Signs Temp 36.8 C 02/19/19 06:00 Pulse 96 H 02/19/19 06:00 Resp 18 02/19/19 06:00 BP 128/65 02/19/19 06:00 Results & Data Laboratory Results Laboratory Results - last 24 hr 02/19/19 08:23 POC Glucose 141 H Current Inpatient Medications Current Inpatient Medications: Current Inpatient Medications Acetaminophen (Tylenol) 650 mg PO Q4H PRN PRN Reason: Headache or Minor Fever Stop: 03/19/19 14:54 Last Admin: 02/18/19 20:52 Dose: 650 mg Documented by: Al Hydrox/Mg Hydrox/Simethicone (Maalox) 30 ml PO Q4H PRN PRN Reason: GI Upset Stop: 03/19/19 14:54 Last Admin: 02/17/19 19:34 Dose: 30 ml Documented by: Albuterol (Ventolin Hfa) 2 puffs INH Q4H PRN PRN Reason: Wheezing Stop: 03/19/19 14:55 Amlodipine Besylate (Norvasc) 5 mg PO QAM BIANCA Stop: 03/20/19 08:59 Last Admin: 02/19/19 08:29 Dose: 5 mg Documented by: Aspirin (Ecotrin Ectab) 81 mg PO DAILY BIANCA Stop: 03/20/19 08:59 Last Admin: 02/19/19 08:29 Dose: 81 mg Documented by: Benzonatate (Tessalon Perle) 100 mg PO TID PRN PRN Reason: Cough Stop: 03/19/19 14:55 Bismuth Subsalicylate (Kaopectate) 15 ml PO PRN PRN PRN Reason: Loose Stool Stop: 03/19/19 14:54 Buspirone HCl (Buspar) 10 mg PO BID17 [facility] Stop: 03/19/19 16:59 Last Admin: 02/19/19 08:28 Dose: 10 mg Documented by: Calcium Carbonate (Tums) 1,500 mg PO TID PRN PRN Reason: Heartburn Stop: 03/20/19 17:35 Last Admin: 02/18/19 22:19 Dose: 1,500 mg Documented by: Capsaicin (Zostrix) 1 appln EXT TID PRN PRN Reason: knee pain Stop: 03/20/19 11:42 Last Admin: 02/19/19 12:21 Dose: 1 appln Documented by: Duloxetine HCl (Cymbalta) 90 mg PO QAM BIANCA Stop: 03/21/19 08:59 Last Admin: 02/19/19 08:28 Dose: 90 mg Documented by: Hydroxyzine HCl (Vistaril) 25 mg PO Q4H PRN PRN Reason: Anxiety Stop: 03/19/19 14:54 Last Admin: 02/17/19 16:53 Dose: 25 mg Documented by: Hydroxyzine HCl (Vistaril) 100 mg PO HS PRN PRN Reason: Insomnia Stop: 03/19/19 14:54 Last Admin: 02/18/19 21:08 Dose: 100 mg Documented by: Levothyroxine Sodium (Synthroid) 75 mcg PO DAILYBB [facility] Stop: 03/20/19 07:59 Last Admin: 02/19/19 08:28 Dose: 75 mcg Documented by: Magnesium Hydroxide (Milk Of Magnesia) 30 ml PO DAILY PRN PRN Reason: Constipation Stop: 03/19/19 14:54 Olanzapine (Zyprexa) 10 mg PO HS BIANCA Stop: 03/20/19 21:59 Last Admin: 02/18/19 20:54 Dose: 10 mg Documented by: Oxybutynin Chloride (Ditropan Xl) 10 mg PO DAILY BIANCA Stop: 03/20/19 08:59 Last Admin: 02/19/19 08:28 Dose: 10 mg Documented by: Pantoprazole Sodium (Protonix) 40 mg PO QAM BIANCA Stop: 03/20/19 08:59 Last Admin: 02/19/19 08:29 Dose: 40 mg Documented by: Polyethylene Glycol (Miralax Powder Packet) 17 gm PO DAILY PRN PRN Reason: Constipation Stop: 03/19/19 19:38 Last Admin: 02/18/19 20:51 Dose: 17 gm Documented by: Simvastatin (Zocor) 40 mg PO HS BIANCA Stop: 03/19/19 21:59 Last Admin: 02/18/19 20:53 Dose: 40 mg Documented by: Sodium Chloride (Gallia Nasal) 1 - 2 sprays NA PRN PRN PRN Reason: Nasal Dryness/Congestion Stop: 03/19/19 14:54 Sumatriptan Succinate (Imitrex) 25 mg PO UD PRN PRN Reason: Migraine Headache Stop: 03/19/19 14:55 Trazodone HCl (Desyrel) 100 mg PO HS PRN PRN Reason: insomnia Stop: 03/20/19 21:59 Vitamin D (Vitamin D3) 2,000 units PO DAILY BIANCA Stop: 03/20/19 08:59 Last Admin: 02/19/19 08:29 Dose: 2,000 units Documented by: Mental Health & Subst Abuse Tx Crayon Molding Machine Operator Name of Crayon Molding Machine Operator: agreeable to referral Post Discharge Appointments Primary Care Physician Name Of Family Doctor: Dr. Rebeca Bella CPT Code CPT Code 69561 (1) Diabetes mellitus Diabetes mellitus complication status: without complication Diabetes mellitus yarn sorter insulin use: without jail use Diabetes mellitus type: type 2 Qualified Code(s): E11.9 - Type 2 diabetes mellitus without complications (2) HLD (hyperlipidemia) Hyperlipidemia type: unspecified Qualified Code(s): E78.5 - Hyperlipidemia, unspecified (3) Hypothyroidism Hypothyroidism type: unspecified Qualified Code(s): E03.9 - Hypothyroidism, unspecified (4) GERD (gastroesophageal reflux disease) Esophagitis presence: esophagitis presence not specified Qualified Code(s): K21.9 - Gastro-esophageal reflux disease without esophagitis (5) Hypertension Hypertension type: essential hypertension Qualified Code(s): I10 - Essential (primary) hypertension
[2019-02-19] MEDS: ACETAMINOPHEN 325 MG TAB PO PRN ×2 (12:57→19:22)
[2019-02-19] MEDS: BusPIRone 15 MG TAB PO SCH (17:05)
[2019-02-19] MEDS: OLANZapine 10 MG TAB PO SCH (21:01)
[2019-02-19] MEDS: SIMVASTATIN 40 MG TAB PO SCH (21:01)
[2019-02-19] MEDS: POLYETHYLENE (MIRALAX) 17 GM PACK PO PRN (21:03)
[2019-02-20] MEDS: PANTOprazole 40 MG TAB PO SCH (08:20)
[2019-02-20] MEDS: ASPIRIN 81 MG ECTAB PO SCH (08:20)
[2019-02-20] MEDS: BusPIRone 15 MG TAB PO SCH ×2 (08:20→17:05)
[2019-02-20] MEDS: AMLODIPINE BESYLATE 5 MG TAB PO SCH (08:20)
[2019-02-20] MEDS: LEVOTHYROXINE SODIUM 75 MCG TABLET PO SCH (08:20)
[2019-02-20] MEDS: DULOXETINE HCL 30 MG CAP PO SCH (08:20)
[2019-02-20] MEDS: OXYBUTYNIN CHLORIDE XL 5 MG TABCR PO SCH (08:20)
[2019-02-20] MEDS: CHOLECALCIFEROL 1,000 UNITS TAB PO SCH (08:21)
[2019-02-20] MEDS: CAPSAICIN CR 0.075% 60 GM TUBE EXT PRN ×2 (10:02→15:42)
[2019-02-20] MEDS: ACETAMINOPHEN 325 MG TAB PO PRN ×2 (10:03→15:20)
--- NOTE | 2019-02-20 10:34 | Psychiatric Progress Note ---
Date of Service February 20, 2019 Impression / Recommendations Impression 78-year-old female admitted medically on 02/13/19 after an intentional overdose of #14 tablets of Ambien 5mg. Pt admits that the overdose was an attempt to end her life, but denies significant psychosocial stressors leading her to this attempt. Largest recent stressor was reported to be side effects to a recent medication trial (reported to have been lamotrigine). Will consider further titration of duloxetine beyond home dose of 90mg or titration of olanzapine beyond reported home dose of "5 or 10mg." Pt's family has requested assistance with looking into alternative housing options. Pt will also require referrals to outpatient providers, and a adult protective caseworker may be beneficial as well. Although her suicidal ideation has reportedly resolved, she is rather flippant about her serious suicide attempt and will require mitigation of risk factors to reduce risk of harm to self on an outpatient basis. Until then, inpatient psychiatric treatment is medically necessary. (1) Intentional drug overdose: 02/17 - Admitted to a locked inpatient behavioral health unit, on q15 minute safety checks - Encourage medication initiation/adjustments as indicated - Encourage participation in group and recreational therapies - Gather collateral information from outpatient providers - Suggest family meeting to involve outpatient supports in safety planning - Arrange appropriate aftercare 02/18 - Reporting ongoing hopelessness and SI this morning after having to recall information about her suicide attempt - Unable to contract for safety outside of the hospital setting 02/20 - Pt denies overt SI, but admits to hopelessness and significant uncertainty that limits her ability to contract for safety outside of the hospital setting (2) Mood disorder: 02/17 - Differential diagnosis includes historical diagnosis of bipolar disorder, major depressive disorder, as well as - Continue home medication regimen: duloxetine to be titrated to 60mg (home dose reportedly 90mg); buspirone 10mg BID (home dose reportedly 20mg BID); and olanzapine 5mg qHS (home dose reportedly "either 5 or 10" per patient). - Fasting blood work completed on 02/14 - lipid panel WNL, estimated average glucose and A1c elevated - Coordinate care with outpatient psychiatrist; may need referral for a new provider in light of psychiatrist's assisted - Gather collateral information from family - Encourage attendance of group and recreational programming - Assist with development of healthy coping strategies 02/18 - Continue titration to home medication dosing - will titrate duloxetine to 90mg tomorrow morning, olanzapine to 10mg qHS and continue buspirone at 10mg BID - as mood concerns seem to be more prevalent than anxiety at present - Due to poor sleep (and discontinuation of zolpidem), will increase prn HS dose of hydroxyzine to 100mg. Will also have order available for 100mg of trazodone if hydroxyzine is ineffective - titration of olanzapine may also prove beneficial for sleep 02/19 - Will continue duloxetine 90mg, which was started today - consider titration to 120mg in the next few days - Will increase buspirone to 15mg BID - as patient's primary concern today is anxiety - Continue olanzapine 10mg qHS - Pt did receive hydroxyzine 100mg last evening, in conjunction with titrated dose of olanzapine - reporting improved sleep - Family meeting with son scheduled for 02/21 02/20 - Titrating duloxetine to 120mg daily, starting tomorrow morning - continue remained of psychiatric medications unchanged - Family meeting with son scheduled for 02/21 - Continue to explore housing opportunities, as patient not permitted to return home with her son after discharge (3) HLD (hyperlipidemia): 02/17 - Continue home dose of simvastatin 40mg qHS - Fasting lipid panel from 02/14 reviewed - all values WNL (4) GERD (gastroesophageal reflux disease): 02/17 - Continue pantoprazole 40mg daily, from the medical floor (5) Hypothyroidism: 02/17 - Continue home dose of levothyroxine 75mcg daily (6) Diabetes mellitus: 02/17 - Reported on medical floor, recommend following - Estimated average glucose - 171; HgbA1c - 7.6% 02/18 - Will follow blood glucose with daily glucometer checks before breakfast - Continue to follow to determine if addition of medications will be pursued 02/20 - Reviewed persistently elevated blood glucose, and provided basic education on diabetes - patient states she is familiar, as she was previously diagnosed but was able to improve her numbers with diet and exercise - Discussed recommendation to begin metformin, in addition with healthy lifestyle changes in attempts to lower blood glucose. Risks, benefits, and potential side effects of the medication were reviewed. Pt is agreeable with in itiating metformin 500mg daily with dinner. - early childhood educator aide consultation was offered; however, patient declines at this time as she feels she has the necessary tools to make appropriate dietary c hanges - Will scheduled PCP follow-up to discuss medication regimen further after discharge (7) Hypertension: 02/17 - Continue amlodipine 5mg qAM as initiated on the medical floor 02/18 - BP has remained stable since admission to [facility] - Continue to monitor per daily vitals order Risk Factors Assessment Male: No : Yes Do You Have Access To A Gun?: No Mental Health Diagnoses: Yes Substance Use Disorders: No Previous Attempt: Yes Previous Psychiatric Hospitalization: Yes Hopelessness: Yes Smoker: No Protective Factors Assessment Adventism Beliefs: Yes : No Responsible for Young Children: No Employed: No Supportive Family: Yes Good Rapport with Provider: Yes Interval History Identifying Information MING VELAZQUEZ is a 78-year-old F who currently lives in [place], [place] with her son and his family. Pt has a reported history of bipolar disorder, and was admitted on 02/17/19 13:50 on a 201 voluntary commitment after being discharged from the medical floor where she was treated following an intention overdose. Pt had overdosed on #14 tablets of 5mg zolpidem. Chief Complaint "I'm just resting. What is it that you needed?" Review of Systems Notes Constitutional: reports decent sleep last evening Cardiovascular: denied Respiratory: denied Gastrointestinal: denied Neurological: denied Psychiatric: denies symptoms other than stated above Musculoskeletal: reports left thumb pain and knee pain Total of at least 10 systems reviewed, pertinent positives as above and in HPI. Sleep Information Total Hours of Sleep: 7.75 Sleep Comments: Patient was awake early. Meal Information Percent Meal Consumed - Breakfast: 100 Percent Meal Consumed - Lunch: 75 Percent Meal Consumed - Dinner: 50 Subjective Subjective Patient was seen & assessed and interval progress reviewed with nursing and social work. Staff report the patient attended groups yesterday, but admitted to feeling "unsettled" still. There is a meeting scheduled with her son for tomorrow. She has completed the referral for case management through the [facility]. Pt was seen today to assess progress since admission. She is found to be in her room, reportedly "resting." Pt states, "I slept well last night and two nights ago, I think my body is catching up." Pt states that she attended community meeting this morning, and her goal today was to be "up and around." She denied requiring any additional assistance with this from staff. Pt states that her mood is "not so good, there's just too many irons in the fire." She admits that she is still concerned about her housing options at this point. Pt was informed of anticipated meeting with her son tomorrow. She denies SI, but admits to c ontinued uncertainty that leads to hopeless. She reports "I felt the release in my stomach" after titration of buspirone yesterday. She is agreeable with titration of duloxetine for tomorrow morning. Pt is also agreeable with initiation of metformin after discussing her persistently elevated blood glucose. Pt admits that in the past she was able to manage this concern with diet and exercise, but is willing to trial a medication as well. Risks, benefits, and potential side effects of metformin were discussed and patient is agreeable with beginning this medication. Pt denies acute needs or concerns today. Physical Exam Psychiatric Orientation: alert, oriented x 3 and cooperative Apperance: appropriately dressed, + disheveled (awoken from rest, hair matted down on one side - likely from sleep) and appeared stated age Eye Contact: good eye contact Motor Behavior: no abnormal motor movements (observed while both laying and sitting upright in bed) Speech: normal rate/rhythm/volume of speech Affect: + depressed affect, + anxious affect and mood congruent with affect Mood: + depressed mood and + anxious mood ("better, I felt the release in my stomach") Thought Process: goal directed thought process, clear/coherent thought process and thought association intact Thought Content: reality based without delusions and + hopelessness (significant "uncertainty") Suicidal Thoughts: denies suicidal thoughts Hallucinations: no auditory hallucinations and no visual hallucinations Cognition: attention grossly intact and language grossly intact Insight: + fair insight Judgement: + fair judgement Vital Signs (Past 24 Hours) Last Vital Signs Temp 36.8 C 02/20/19 06:00 Pulse 88 02/20/19 06:50 Resp 18 02/20/19 06:00 BP 115/72 02/20/19 06:50 Results & Data Laboratory Results Laboratory Results - last 24 hr 02/20/19 08:09 POC Glucose 135 H Current Inpatient Medications Current Inpatient Medications: Current Inpatient Medications Acetaminophen (Tylenol) 650 mg PO Q4H PRN PRN Reason: Headache or Minor Fever Stop: 03/19/19 14:54 Last Admin: 02/20/19 10:03 Dose: 650 mg Documented by: Al Hydrox/Mg Hydrox/Simethicone (Maalox) 30 ml PO Q4H PRN PRN Reason: GI Upset Stop: 03/19/19 14:54 Last Admin: 02/17/19 19:34 Dose: 30 ml Documented by: Albuterol (Ventolin Hfa) 2 puffs INH Q4H PRN PRN Reason: Wheezing Stop: 03/19/19 14:55 Amlodipine Besylate (Norvasc) 5 mg PO QAM [facility] Stop: 03/20/19 08:59 Last Admin: 02/20/19 08:20 Dose: 5 mg Documented by: Aspirin (Ecotrin Ectab) 81 mg PO DAILY [facility] Stop: 03/20/19 08:59 Last Admin: 02/20/19 08:20 Dose: 81 mg Documented by: Benzonatate (Tessalon Perle) 100 mg PO TID PRN PRN Reason: Cough Stop: 03/19/19 14:55 Bismuth Subsalicylate (Kaopectate) 15 ml PO PRN PRN PRN Reason: Loose Stool Stop: 03/19/19 14:54 Buspirone HCl (Buspar) 15 mg PO BID17 [facility] Stop: 03/21/19 16:59 Last Admin: 02/20/19 08:20 Dose: 15 mg Documented by: Calcium Carbonate (Tums) 1,500 mg PO TID PRN PRN Reason: Heartburn Stop: 03/20/19 17:35 Last Admin: 02/18/19 22:19 Dose: 1,500 mg Documented by: Capsaicin (Zostrix) 1 appln EXT TID PRN PRN Reason: knee pain Stop: 03/20/19 11:42 Last Admin: 02/20/19 10:02 Dose: 1 appln Documented by: Duloxetine HCl (Cymbalta) 90 mg PO QAM [facility] Stop: 03/21/19 08:59 Last Admin: 02/20/19 08:20 Dose: 90 mg Documented by: Hydroxyzine HCl (Vistaril) 25 mg PO Q4H PRN PRN Reason: Anxiety Stop: 03/19/19 14:54 Last Admin: 02/17/19 16:53 Dose: 25 mg Documented by: Hydroxyzine HCl (Vistaril) 100 mg PO HS PRN PRN Reason: Insomnia Stop: 03/19/19 14:54 Last Admin: 02/19/19 21:01 Dose: 100 mg Documented by: Levothyroxine Sodium (Synthroid) 75 mcg PO DAILYBB [facility] Stop: 03/20/19 07:59 Last Admin: 02/20/19 08:20 Dose: 75 mcg Documented by: Magnesium Hydroxide (Milk Of Magnesia) 30 ml PO DAILY PRN PRN Reason: Constipation Stop: 03/19/19 14:54 Olanzapine (Zyprexa) 10 mg PO HS [facility] Stop: 03/20/19 21:59 Last Admin: 02/19/19 21:01 Dose: 10 mg Documented by: Oxybutynin Chloride (Ditropan Xl) 10 mg PO DAILY [facility] Stop: 03/20/19 08:59 Last Admin: 02/20/19 08:20 Dose: 10 mg Documented by: Pantoprazole Sodium (Protonix) 40 mg PO QAM [facility] Stop: 03/20/19 08:59 Last Admin: 02/20/19 08:20 Dose: 40 mg Documented by: Polyethylene Glycol (Miralax Powder Packet) 17 gm PO DAILY PRN PRN Reason: Constipation Stop: 03/19/19 19:38 Last Admin: 02/19/19 21:03 Dose: 17 gm Documented by: Simvastatin (Zocor) 40 mg PO HS [facility] Stop: 03/19/19 21:59 Last Admin: 02/19/19 21:01 Dose: 40 mg Documented by: Sodium Chloride ([place] Nasal) 1 - 2 sprays NA PRN PRN PRN Reason: Nasal Dryness/Congestion Stop: 03/19/19 14:54 Sumatriptan Succinate (Imitrex) 25 mg PO UD PRN PRN Reason: Migraine Headache Stop: 03/19/19 14:55 Trazodone HCl (Desyrel) 100 mg PO HS PRN PRN Reason: insomnia Stop: 03/20/19 21:59 Vitamin D (Vitamin D3) 2,000 units PO DAILY [facility] Stop: 03/20/19 08:59 Last Admin: 02/20/19 08:21 Dose: 2,000 units Documented by: Mental Health & Subst Abuse Tx Psychiatrist Name of Psychiatrist: [employer] [facility] Psychiatrist's Date of Appointment with Psychiatrist: 03/03/19 Time of Appointment with Psychiatrist: 1:00pm Psychiatric Appointment Comment: [address] , [place] [address] Partner Integration Planner Name of Partner Integration Planner: [employer] Phone Number for Partner Integration Planner: Case Management Appointment Comment: [address], [address], [place] [address] Post Discharge Appointments Primary Care Physician Name Of Family Doctor: Dr. Rebeca Bella Primary Care Provider Appointment Comment: [address] , [place] [id number] CPT Code CPT Code 84851 (1) Diabetes mellitus Diabetes mellitus complication status: without complication Diabetes mellitus chcf insulin use: without chcf use Diabetes mellitus type: type 2 Qualified Code(s): E11.9 - Type 2 diabetes mellitus without complications (2) HLD (hyperlipidemia) Hyperlipidemia type: unspecified Qualified Code(s): E78.5 - Hyperlipidemia, unspecified (3) Hypothyroidism Hypothyroidism type: unspecified Qualified Code(s): E03.9 - Hypothyroidism, unspecified (4) GERD (gastroesophageal reflux disease) Esophagitis presence: esophagitis presence not specified Qualified Code(s): K21.9 - Gastro-esophageal reflux disease without esophagitis (5) Hypertension Hypertension type: essential hypertension Qualified Code(s): I10 - Essential (primary) hypertension
[2019-02-20] MEDS ORDERED: METFORMIN HCL 500 MG TAB PO SCH (17:15)
[2019-02-20] MEDS: POLYETHYLENE (MIRALAX) 17 GM PACK PO PRN (18:17)
[2019-02-20] MEDS: OLANZapine 10 MG TAB PO SCH (20:36)
[2019-02-20] MEDS: SIMVASTATIN 40 MG TAB PO SCH (20:36)
[2019-02-21] MEDS: OXYBUTYNIN CHLORIDE XL 5 MG TABCR PO SCH (08:27)
[2019-02-21] MEDS: LEVOTHYROXINE SODIUM 75 MCG TABLET PO SCH (08:27)
[2019-02-21] MEDS: DULOXETINE HCL 30 MG CAP PO SCH (08:27)
[2019-02-21] MEDS: BusPIRone 15 MG TAB PO SCH ×2 (08:27→17:39)
[2019-02-21] MEDS: AMLODIPINE BESYLATE 5 MG TAB PO SCH (08:28)
[2019-02-21] MEDS: PANTOprazole 40 MG TAB PO SCH (08:28)
[2019-02-21] MEDS: ASPIRIN 81 MG ECTAB PO SCH (08:28)
[2019-02-21] MEDS: CHOLECALCIFEROL 1,000 UNITS TAB PO SCH (08:28)
[2019-02-21] MEDS: ACETAMINOPHEN 325 MG TAB PO PRN (09:58)
[2019-02-21] MEDS: CAPSAICIN CR 0.075% 60 GM TUBE EXT PRN (11:57)
--- NOTE | 2019-02-21 16:49 | Psychiatric Progress Note ---
Date of Service February 21, 2019 Impression / Recommendations Impression 78-year-old female admitted medically on 02/13/19 after an intentional overdose of #14 tablets of Ambien 5mg. Although the patient's family reportedly suspects that her recent suicide attempt was precipitated by excess sedation associated with certain medications, today the patient reiterates what she had told me a week ago when I saw her in the intensive care unit; i.e., that she is in chronic, intractable pain, both in her lower back and in her left knee, and although certain medications have helped "a little," the fact remains that she never experiences significant relief from pain. Also, the patient reports that she is feeling "useless." She is able to describe a lifelong history of caring for others and meeting their needs. These included her late , her 3 children, and, in her older years she cared for a daughter who was suffering from multiple sclerosis. However, that daughter committed suicide several years ago and the patient says that she now finds herself without any specific role. She also worries that she is a burden to her family and and that she, herself, is unable to contribute in any meaningful way. She acknowledges that her family loves her and would be devastated where she to complete suicide. She notes that for that reason she does regret the suicide attempt and says that she feels that she can contract for safetybut his first interested in achieving improved pain management. She reports that she is consulted several providers and there have been recommendations that have included surgery, nerve blocks, and CBD oil. She also notes that she has heard that medical marijuana can help with chronic intractable pain. My recommendation to the patient today is that she focus on achieving pain management, and I agreed that there is only so much that can be done to improve her mood. She does not seem to be particularly depressed and, instead, she tells me that she feels that at this point in her life she is not particularly useful and, at the same time, her quality of life is poor because of the intractable pain. At the same time, the patient is future oriented and says that she would like to focus on pain relief. She acknowledges that she sometimes has not followed through on recommendations or has not been vigorous and pursuing various options of which she is aware. (1) Intentional drug overdose: 02/17 - Admitted to a locked inpatient behavioral health unit, on q15 minute safety checks - Encourage medication initiation/adjustments as indicated - Encourage participation in group and recreational therapies - Gather collateral information from outpatient providers - Suggest family meeting to involve outpatient supports in safety planning - Arrange appropriate aftercare 02/18 - Reporting ongoing hopelessness and SI this morning after having to recall information about her suicide attempt - Unable to contract for safety outside of the hospital setting 02/20 - Pt denies overt SI, but admits to hopelessness and significant uncertainty that limits her ability to contract for safety outside of the hospital setting 02/21 -The patient notes that she has not been having thoughts of suicide in the hospital, but says that she cannot say for certain that the thoughts of suicide will not return following discharge, given her chronic pain. -We discussed in some detail my recommendation that she occupy herself with pursuing pain managementwhich may include surgical interventions, nerve blocks, and other non-narcotic interventions. -The patient tells me that she understands why her son and [id number] are reluctant to allow her to live in the house with them, given that they have younger children and they are concerned about the trauma that might be inflicted on the children should she commit suicide in the house where 1 of the children might find her . The patient has, "I am a mother, so I understand why the are taking the position that they are taking." -The patient also agrees with the recommendation that she have other people manage her medications so that she is unlikely to have a stockpile of "14 Ambien pills" available at any given time. (2) Mood disorder: 02/17 - Differential diagnosis includes historical diagnosis of bipolar disorder, major depressive disorder, as well as - Continue home medication regimen: duloxetine to be titrated to 60mg (home dose reportedly 90mg); buspirone 10mg BID (home dose reportedly 20mg BID); and olanzapine 5mg qHS (home dose reportedly "either 5 or 10" per patient). - Fasting blood work completed on 02/14 - lipid panel WNL, estimated average glucose and A1c elevated - Coordinate care with outpatient psychiatrist; may need referral for a new provider in light of psychiatrist's prison - Gather collateral information from family - Encourage attendance of group and recreational programming - Assist with development of healthy coping strategies 02/18 - Continue titration to home medication dosing - will titrate duloxetine to 90mg tomorrow morning, olanzapine to 10mg qHS and continue buspirone at 10mg BID - as mood concerns seem to be more prevalent than anxiety at present - Due to poor sleep (and discontinuation of zolpidem), will increase prn HS dose of hydroxyzine to 100mg. Will also have order available for 100mg of trazodone if hydroxyzine is ineffective - titration of olanzapine may also prove beneficial for sleep 02/19 - Will continue duloxetine 90mg, which was started today - consider titration to 120mg in the next few days - Will increase buspirone to 15mg BID - as patient's primary concern today is anxiety - Continue olanzapine 10mg qHS - Pt did receive hydroxyzine 100mg last evening, in conjunction with titrated dose of olanzapine - reporting improved sleep - Family meeting with son scheduled for 02/21 02/20 - Titrating duloxetine to 120mg daily, starting tomorrow morning - continue remained of psychiatric medications unchanged - Family meeting with son scheduled for 02/21 - Continue to explore housing opportunities, as patient not permitted to return home with her son after discharge 02/21 -The patient's dose of duloxetine has been increased to 120 mg daily. Patient reports that she does believe the duloxetine as well as gabapentin have helped with her chronic pain, but adds "not much." -As noted above, the patient says that she does not feel particularly depressed, as and "sad." Instead, she says that her suicidal thoughts come to her because of her chronic pain, combined with the psychosocial stressor of feeling useless. -As above, we are emphasizing the importance of focusing on pain management as a way of addressing the patient's significant mood alterations. -We have also suggested pet therapy, or even the possibility of acquiring her own pet in her new apartment. (3) HLD (hyperlipidemia): 02/17 - Continue home dose of simvastatin 40mg qHS - Fasting lipid panel from 02/14 reviewed - all values WNL (4) GERD (gastroesophageal reflux disease): 02/17 - Continue pantoprazole 40mg daily, from the medical floor 02/21 -The patient reports no recent active GERD symptoms (5) Hypothyroidism: 02/17 - Continue home dose of levothyroxine 75mcg daily (6) Diabetes mellitus: 02/17 - Reported on medical floor, recommend following - Estimated average glucose - 171; HgbA1c - 7.6% 02/18 - Will follow blood glucose with daily glucometer checks before breakfast - Continue to follow to determine if addition of medications will be pursued 02/20 - Reviewed persistently elevated blood glucose, and provided basic education on diabetes - patient states she is familiar, as she was previously diagnosed but was able to improve her numbers with diet and exercise - Discussed recommendation to begin metformin, in addition with healthy lifestyle changes in attempts to lower blood glucose. Risks, benefits, and potential side effects of the medication were reviewed. Pt is agreeable with initiating metformin 500mg daily with dinner. - breastfeeding educator consultation was offered; however, patient declines at this time as she feels she has the necessary tools to make appropriate dietary changes 02/21 -Patient's blood glucose remains elevated today at 149. Metformin will be increased to 500 mg twice a day. - Will scheduled PCP follow-up to discuss medication regimen further after discharge (7) Hypertension: 02/17 - Continue amlodipine 5mg qAM as initiated on the medical floor 02/18 - BP has remained stable since admission to [facility] - Continue to monitor per daily vitals order 02/21 -The patient's pulse is elevated today, but her blood pressure is within normal limits. We will continue to monitor. Risk Factors Assessment Male: No : Yes Do You Have Access To A Gun?: No Mental Health Diagnoses: Yes Substance Use Disorders: No Previous Attempt: Yes Previous Psychiatric Hospitalization: Yes Hopelessness: Yes Smoker: No Protective Factors Assessment Cheondoism Beliefs: Yes : No Responsible for Young Children: No Employed: No Supportive Family: Yes Good Rapport with Provider: Yes Interval History Identifying Information MING VELAZQUEZ is a 78-year-old F who currently lives in [place], [place] with her son and his family. Pt has a reported history of bipolar disorder, and was admitted on 02/17/19 13:50 on a 201 voluntary commitment after being discharged from the medical floor where she was treated following an intention overdose. Pt had overdosed on #14 tablets of 5mg zolpidem. Chief Complaint "I took an overdose of sleeping pills". Review of Systems Sleep Information Total Hours of Sleep: 6.5 Sleep Comments: pt on q-15 minute checks Meal Information Percent Meal Consumed - Breakfast: 50 Percent Meal Consumed - Lunch: 50 Percent Meal Consumed - Dinner: 75 Subjective Subjective Patient was seen & assessed and interval progress reviewed with treatment team. I met individually with the patient in order to assess her current mental status examination, evaluate her response to treatment, make any necessary changes in her treatment regimen and coordination with the patient, and address questions, issues and concerns that may arise. The patient tells me that she does not recall meeting with me last Sunday when I saw her in the intensive care unit. She smiled and said, "I was probably in [place]!" The patient then proceeded to essentially provide the same history that she had provided last Sunday. She notes that she has been in excruciating pain, progressively, because of degenerative disc disease in her lumbar spine, with radiating pain as well as significant pain in her left the following knee replacement surgery approximately a year ago. Furthermore, she notes that she has been feeling useless. She raised a family, and after being in 1994 she continued to have a role in providing care for her daughter, a woman who committed suicide while experiencing progressive symptoms of multiple sclerosis, and a son who has schizophrenia. The patient lives with her daughter and son-in-law, but when the daughter committed suicide the patient had no particular reason to remain with her son-in-law, and decided to move to [place] in order to live with her other son and his and their 2 children. She states, "I know they love me. But the children [reference is to her two grandchildren] are now getting older, and I am just not much good. I am always in pain. I do not drive. I cannot really contribute much." She confirms that she deliberately took the overdose of Ambien. She has, "part of me probably just wanted to go to sleep. But also, part of me did want to ." The patient was able to discuss the fact that her young granddaughter might have been the person who discovered her had she , and the patient expresses remorse in this regard. Most of today's encounter focused on the patient's pain symptoms. She acknowledges that she has consulted various providers and that there have been recommendations for pain relief treatment that she has not yet had a chance to pursue. She also has heard about medical marijuana for pain as well as CBD oil. There has also been some discussion regarding back surgery, although she notes that a provider recently told her that the defects at this point may be too severe. Also, the patient reports that prior to admission she had been taking gabapentin 300 mg twice a day, but that she thinks that this medication had not been included on her medication reconciliation because her outpatient psychiatrist, Dr. Charles, was not aware that she was taking it. She notes that gabapentin does help "somewhat" with her pain. She also reports that opioid-based pain medications at all has been very helpful to her in the past, but she understands why these are not being offered to her at the present time. Physical Exam Psychiatric Orientation: alert and oriented x 3 Apperance: appropriately dressed Eye Contact: + fair eye contact The patient ambulates slowly and favors her left. She also self soothes by stroke in her urrutia and face, and there are muscular fasciculations in evidence and her facial musculature. Speech: normal rate/rhythm/volume of speech Affect: + anxious affect Patient's affect is anxious, but fairly bright. She smiles and laughs appropriately, on several occasions makes jokes. Mood: + anxious mood The patient adds, "it is not so much that I am depressed. It is just that I am in a lot of pain all day long and it is a real struggle." Thought Process: goal directed thought process Thought Content: reality based without delusions The patient reports ongoing fleeting thoughts of suicide without any plan or intent. She is future oriented, and says that she would agree with the recommendation that she focus on achieving pain relief. Homicidal Thoughts: denies homicidal thoughts Hallucinations: no auditory hallucinations Cognition: recent memory grossly intact, remote memory grossly intact and attention grossly intact The patient has occasional word finding difficulties, but this is within normal limits. Estimated Intelligence: average estimated intelligence Insight: + fair insight Judgement: + fair judgement Vital Signs (Past 24 Hours) Last Vital Signs Temp 36.5 C 02/21/19 06:50 Pulse 107 H 02/21/19 06:50 Resp 18 02/21/19 06:50 BP 108/68 02/21/19 06:50 Results & Data Laboratory Results Laboratory Results - last 24 hr 02/21/19 07:55 POC Glucose 149 H Current Inpatient Medications Current Inpatient Medications: Current Inpatient Medications Acetaminophen (Tylenol) 650 mg PO Q4H PRN PRN Reason: Headache or Minor Fever Stop: 03/19/19 14:54 Last Admin: 02/21/19 09:58 Dose: 650 mg Documented by: Al Hydrox/Mg Hydrox/Simethicone (Maalox) 30 ml PO Q4H PRN PRN Reason: GI Upset Stop: 03/19/19 14:54 Last Admin: 02/17/19 19:34 Dose: 30 ml Documented by: Albuterol (Ventolin Hfa) 2 puffs INH Q4H PRN PRN Reason: Wheezing Stop: 03/19/19 14:55 Amlodipine Besylate (Norvasc) 5 mg PO QAM [facility] Stop: 03/20/19 08:59 Last Admin: 02/21/19 08:28 Dose: 5 mg Documented by: Aspirin (Ecotrin Ectab) 81 mg PO DAILY [facility] Stop: 03/20/19 08:59 Last Admin: 02/21/19 08:28 Dose: 81 mg Documented by: Benzonatate (Tessalon Perle) 100 mg PO TID PRN PRN Reason: Cough Stop: 03/19/19 14:55 Bismuth Subsalicylate (Kaopectate) 15 ml PO PRN PRN PRN Reason: Loose Stool Stop: 03/19/19 14:54 Buspirone HCl (Buspar) 15 mg PO BID17 [facility] Stop: 03/21/19 16:59 Last Admin: 02/21/19 08:27 Dose: 15 mg Documented by: Calcium Carbonate (Tums) 1,500 mg PO TID PRN PRN Reason: Heartburn Stop: 03/20/19 17:35 Last Admin: 02/18/19 22:19 Dose: 1,500 mg Documented by: Capsaicin (Zostrix) 1 appln EXT TID PRN PRN Reason: knee pain Stop: 03/20/19 11:42 Last Admin: 02/21/19 11:57 Dose: 1 appln Documented by: Duloxetine HCl (Cymbalta) 120 mg PO QAM [facility] Stop: 03/23/19 08:59 Last Admin: 02/21/19 08:27 Dose: 120 mg Documented by: Gabapentin (Neurontin) 300 mg PO BID [facility] Stop: 03/23/19 20:59 Hydroxyzine HCl (Vistaril) 25 mg PO Q4H PRN PRN Reason: Anxiety Stop: 03/19/19 14:54 Last Admin: 02/17/19 16:53 Dose: 25 mg Documented by: Hydroxyzine HCl (Vistaril) 100 mg PO HS PRN PRN Reason: Insomnia Stop: 03/19/19 14:54 Last Admin: 02/20/19 20:37 Dose: 100 mg Documented by: Levothyroxine Sodium (Synthroid) 75 mcg PO DAILYBB [facility] Stop: 03/20/19 07:59 Last Admin: 02/21/19 08:27 Dose: 75 mcg Documented by: Magnesium Hydroxide (Milk Of Magnesia) 30 ml PO DAILY PRN PRN Reason: Constipation Stop: 03/19/19 14:54 Metformin HCl (Glucophage) 500 mg PO DAILYBD [facility] Stop: 03/22/19 17:14 Last Admin: 02/20/19 17:20 Dose: 500 mg Documented by: Olanzapine (Zyprexa) 10 mg PO HS [facility] Stop: 03/20/19 21:59 Last Admin: 02/20/19 20:36 Dose: 10 mg Documented by: Oxybutynin Chloride (Ditropan Xl) 10 mg PO DAILY [facility] Stop: 03/20/19 08:59 Last Admin: 02/21/19 08:27 Dose: 10 mg Documented by: Pantoprazole Sodium (Protonix) 40 mg PO QAM [facility] Stop: 03/20/19 08:59 Last Admin: 02/21/19 08:28 Dose: 40 mg Documented by: Polyethylene Glycol (Miralax Powder Packet) 17 gm PO DAILY PRN PRN Reason: Constipation Stop: 03/19/19 19:38 Last Admin: 02/20/19 18:17 Dose: 17 gm Documented by: Simvastatin (Zocor) 40 mg PO HS [facility] Stop: 03/19/19 21:59 Last Admin: 02/20/19 20:36 Dose: 40 mg Documented by: Sodium Chloride ([place] Nasal) 1 - 2 sprays NA PRN PRN PRN Reason: Nasal Dryness/Congestion Stop: 03/19/19 14:54 Sumatriptan Succinate (Imitrex) 25 mg PO UD PRN PRN Reason: Migraine Headache Stop: 03/19/19 14:55 Trazodone HCl (Desyrel) 100 mg PO HS PRN PRN Reason: insomnia Stop: 03/20/19 21:59 Vitamin D (Vitamin D3) 2,000 units PO DAILY [facility] Stop: 03/20/19 08:59 Last Admin: 02/21/19 08:28 Dose: 2,000 units Documented by: Mental Health & Subst Abuse Tx Psychiatrist Name of Psychiatrist: Radha De La Cruz Psychiatrist's Date of Appointment with Psychiatrist: 03/03/19 Time of Appointment with Psychiatrist: 1:00pm Psychiatric Appointment Comment: [address] [facility], [place] [address] [employer] [facility] Name of [facility] [employer] [facility]: [facility] Phone Number for [employer] [facility]: Case Management Appointment Comment: [address], [address], [place] [address] Post Discharge Appointments Primary Care Physician Name Of Family Doctor: Dr. Steph Bella [facility] Date of Appointment with PCP: 03/04/19 Time of Appointment with PCP: 1:15pm Provider Appointment Comment: [address], [place] [id number] Contact Information Discharge Discharge Address: [address] [place] [address], [place] [address] CPT Code CPT Code 87550 (1) HLD (hyperlipidemia) Hyperlipidemia type: unspecified Qualified Code(s): E78.5 - Hyperlipidemia, unspecified (2) GERD (gastroesophageal reflux disease) Esophagitis presence: esophagitis presence not specified Qualified Code(s): K21.9 - Gastro-esophageal reflux disease without esophagitis (3) Hypothyroidism Hypothyroidism type: unspecified Qualified Code(s): E03.9 - Hypothyroidism, unspecified (4) Diabetes mellitus Diabetes mellitus type: type 2 Diabetes mellitus [employer] insulin use: without group home use Diabetes mellitus complication status: without complication Qualified Code(s): E11.9 - Type 2 diabetes mellitus without complications (5) Hypertension Hypertension type: essential hypertension Qualified Code(s): I10 - Essential (primary) hypertension
[2019-02-21] MEDS: METFORMIN HCL 500 MG TAB PO SCH (17:39)
[2019-02-21] MEDS: OLANZapine 10 MG TAB PO SCH (21:27)
[2019-02-21] MEDS: SIMVASTATIN 40 MG TAB PO SCH (21:27)
[2019-02-21] MEDS: GABAPENTIN 300 MG CAP PO SCH (21:27)
--- NOTE | 2019-02-22 08:52 | Psychiatric Progress Note ---
Date of Service February 22, 2019 Impression / Recommendations Impression 78-year-old female admitted medically on 02/13/19 after an intentional overdose of #14 tablets of Ambien 5mg. Pt admits that the overdose was an attempt to end her life, but denies significant psychosocial stressors leading her to this attempt. Largest recent stressor was reported to be side effects to a recent medication trial (reported to have been lamotrigine). Will consider further titration of duloxetine beyond home dose of 90mg or titration of olanzapine beyond reported home dose of "5 or 10mg." Pt's family has requested assistance with looking into alternative housing options. Pt will also require referrals to outpatient providers, and a protective services case worker may be beneficial as well. Although her suicidal ideation has reportedly resolved, she is rather flippant about her serious suicide attempt and will require mitigation of risk factors to reduce risk of harm to self on an outpatient basis. Until then, inpatient psychiatric treatment is medically necessary. (1) Intentional drug overdose: 02/17 - Admitted to a locked inpatient behavioral health unit, on q15 minute safety checks - Encourage medication initiation/adjustments as indicated - Encourage participation in group and recreational therapies - Gather collateral information from outpatient providers - Suggest family meeting to involve outpatient supports in safety planning - Arrange appropriate aftercare 02/18 - Reporting ongoing hopelessness and SI this morning after having to recall information about her suicide attempt - Unable to contract for safety outside of the hospital setting 02/20 - Pt denies overt SI, but admits to hopelessness and significant uncertainty that limits her ability to contract for safety outside of the hospital setting 02/21 -The patient notes that she has not been having thoughts of suicide in the hospital, but says that she cannot say for certain that the thoughts of suicide will not return following discharge, given her chronic pain. -We discussed in some detail my recommendation that she occupy herself with pursuing pain managementwhich may include surgical interventions, nerve blocks, and other non-narcotic interventions. -The patient tells me that she understands why her son and [id number] are reluctant to allow her to live in the house with them, given that they have younger children and they are concerned about the trauma that might be inflicted on the children should she commit suicide in the house where 1 of the children might find her . The patient has, "I am a mother, so I understand why the are taking the position that they are taking." -The patient also agrees with the recommendation that she have other people manage her medications so that she is unlikely to have a stockpile of "14 Ambien pills" available at any given time. 02/22 - Does not admit to suicidal ideation today, but openly reports that she has not ruled out the idea of "taking pills" to overdose - Continue to encourage healthy and effective coping strategies (2) Mood disorder: 02/17 - Differential diagnosis includes historical diagnosis of bipolar disorder, major depressive disorder, as well as - Continue home medication regimen: duloxetine to be titrated to 60mg (home dose reportedly 90mg); buspirone 10mg BID (home dose reportedly 20mg BID); and olanzapine 5mg qHS (home dose reportedly "either 5 or 10" per patient). - Fasting blood work completed on 02/14 - lipid panel WNL, estimated average glucose and A1c elevated - Coordinate care with outpatient psychiatrist; may need referral for a new provider in light of psychiatrist's alf - Gather collateral information from family - Encourage attendance of group and recreational programming - Assist with development of healthy coping strategies 02/18 - Continue titration to home medication dosing - will titrate duloxetine to 90mg tomorrow morning, olanzapine to 10mg qHS and continue buspirone at 10mg BID - as mood concerns seem to be more prevalent than anxiety at present - Due to poor sleep (and discontinuation of zolpidem), will increase prn HS dose of hydroxyzine to 100mg. Will also have order available for 100mg of trazodone if hydroxyzine is ineffective - titration of olanzapine may also prove beneficial for sleep 02/19 - Will continue duloxetine 90mg, which was started today - consider titration to 120mg in the next few days - Will increase buspirone to 15mg BID - as patient's primary concern today is anxiety - Continue olanzapine 10mg qHS - Pt did receive hydroxyzine 100mg last evening, in conjunction with titrated dose of olanzapine - reporting improved sleep - Family meeting with son scheduled for 02/21 02/20 - Titrating duloxetine to 120mg daily, starting tomorrow morning - continue remained of psychiatric medications unchanged - Family meeting with son scheduled for 02/21 - Continue to explore housing opportunities, as patient not permitted to return home with her son after discharge 02/21 -The patient's dose of duloxetine has been increased to 120 mg daily. Patient reports that she does believe the duloxetine as well as gabapentin have helped with her chronic pain, but adds "not much." -As noted above, the patient says that she does not feel particularly depressed, as and "sad." Instead, she says that her suicidal thoughts come to her because of her chronic pain, combined with the psychosocial stressor of feeling useless. -As above, we are emphasizing the importance of focusing on pain management as a way of addressing the patient's significant mood alterations. -We have also suggested pet therapy, or even the possibility of acquiring her own pet in her new apartment. 02/22 - Continue medication regimen as above - Continue to encourage group and recreational programming; focus on processing thoughts and feelings related to upcoming transitions - Assist in development of healthy and effective coping strategies - Encourage patient participation in discharge planning, to encourage ownership and autonomy in this next chapter (3) HLD (hyperlipidemia): 02/17 - Continue home dose of simvastatin 40mg qHS - Fasting lipid panel from 02/14 reviewed - all values WNL (4) GERD (gastroesophageal reflux disease): 02/17 - Continue pantoprazole 40mg daily, from the medical floor 02/21 -The patient reports no recent active GERD symptoms (5) Hypothyroidism: 02/17 - Continue home dose of levothyroxine 75mcg daily (6) Diabetes mellitus: 02/17 - Reported on medical floor, recommend following - Estimated average glucose - 171; HgbA1c - 7.6% 02/18 - Will follow blood glucose with daily glucometer checks before breakfast - Continue to follow to determine if addition of medications will be pursued 02/20 - Reviewed persistently elevated blood glucose, and provided basic education on diabetes - patient states she is familiar, as she was previously diagnosed but was able to improve her numbers with diet and exercise - Discussed recommendation to begin metformin, in addition with healthy lifestyle changes in attempts to lower blood glucose. Risks, benefits, and potential side effects of the medication were reviewed. Pt is agreeable with initiating metformin 500mg daily with dinner. - early childhood educator aide consultation was offered; however, patient declines at this time as she feels she has the necessary tools to make appropriate dietary changes 02/21 -Patient's blood glucose remains elevated today at 149. Metformin will be increased to 500 mg twice a day. - Will scheduled PCP follow-up to discuss medication regimen further after discharge (7) Hypertension: 02/17 - Continue amlodipine 5mg qAM as initiated on the medical floor 02/18 - BP has remained stable since admission to [facility] - Continue to monitor per daily vitals order 02/21 -The patient's pulse is elevated today, but her blood pressure is within normal limits. We will continue to monitor. Risk Factors Assessment Male: No : Yes Do You Have Access To A Gun?: No Mental Health Diagnoses: Yes Substance Use Disorders: No Previous Attempt: Yes Previous Psychiatric Hospitalization: Yes Hopelessness: Yes Smoker: No Protective Factors Assessment Taoist Beliefs: Yes : No Responsible for Young Children: No Employed: No Supportive Family: Yes Good Rapport with Provider: Yes Interval History Identifying Information MING VELAZQUEZ is a 78-year-old F who currently lives in [place], [place] with her son and his family. Pt has a reported history of bipolar disorder, and was admitted on 02/17/19 13:50 on a 201 voluntary commitment after being discharged from the medical floor where she was treated following an intention overdose. Pt had overdosed on #14 tablets of 5mg zolpidem. Chief Complaint "I'm achy." Review of Systems Notes Constitutional: denied Cardiovascular: denied Respiratory: denied Gastrointestinal: denied Neurological: denied Psychiatric: denies symptoms other than stated above Musculoskeletal: reports knee and hand pain today Total of at least 10 systems reviewed, pertinent positives as above and in HPI. Sleep Information Total Hours of Sleep: 7.5 Sleep Comments: pt on q-15 minute checks Meal Information Percent Meal Consumed - Breakfast: 50 Percent Meal Consumed - Lunch: 50 Percent Meal Consumed - Dinner: 100 Subjective Subjective Patient was seen & assessed and interval progress reviewed with nursing and social work. Staff reports the patient had a productive meeting with her son yesterday, though it seems that patient may not have been as pleased with the outcome. There is [place] at an [place], which is likely to be pursued by the son. Patient continues to be largely isolative on the unit, attending only some groups. She reportedly rated her mood a 4/10 and reportedly felt as though she is making "no progress". Pt was seen today to assess progress since admission. Pt states she is "achy" today, reporting significant pain in her knee and hand today. Pt is rather vague in her responses to questions today. When asked about her meeting, the patient simply states, "I don't know." She reports her mood is "ok" today, but admits to ongoing uncertainties in her discharge plan that are concerning to her. When asked about current suicidality, the patient states "I just don't know how to do this, I haven't lived alone in so long." It was inquired if patient felt it was likely she would resort to self harm if she had difficulty with the transition. She states, "I didn't rule out the idea of taking pills...so yeah, I guess it could happen." She denies any thoughts to harm herself here on the unit. Pt denies other needs or concerns at this time. Physical Exam Psychiatric Orientation: alert, oriented x 3 and cooperative (superficially, but is somewhat guarded today) Apperance: appropriately dressed (casually, in nice shirt and jeans), appropriately groomed (reports having recently showered) and appeared stated age Eye Contact: good eye contact Motor Behavior: no abnormal motor movements (observed while sitting on edge of bed) Speech: normal rate/rhythm/volume of speech Affect: + depressed affect and mood congruent with affect Mood: + depressed mood and + anxious mood Thought Process: goal directed thought process, clear/coherent thought process and thought association intact Thought Content: + cognitive distortions, + hopelessness and + self deprecation Suicidal Thoughts: + reports suicidal thoughts (cannot clearly deny SI, reporting "I didn't rule it out") Homicidal Thoughts: denies homicidal thoughts Hallucinations: no auditory hallucinations and no visual hallucinations Cognition: attention grossly intact and language grossly intact Insight: + poor insight Judgement: + poor judgement Vital Signs (Past 24 Hours) Last Vital Signs Temp 36.6 C 02/22/19 06:53 Pulse 113 H 02/22/19 06:54 Resp 18 02/22/19 06:53 BP 114/49 L 02/22/19 06:54 Results & Data Current Inpatient Medications Current Inpatient Medications: Current Inpatient Medications Acetaminophen (Tylenol) 650 mg PO Q4H PRN PRN Reason: Headache or Minor Fever Stop: 03/19/19 14:54 Last Admin: 02/21/19 09:58 Dose: 650 mg Documented by: Al Hydrox/Mg Hydrox/Simethicone (Maalox) 30 ml PO Q4H PRN PRN Reason: GI Upset Stop: 03/19/19 14:54 Last Admin: 02/17/19 19:34 Dose: 30 ml Documented by: Albuterol (Ventolin Hfa) 2 puffs INH Q4H PRN PRN Reason: Wheezing Stop: 03/19/19 14:55 Amlodipine Besylate (Norvasc) 5 mg PO QAM [facility] Stop: 03/20/19 08:59 Last Admin: 02/21/19 08:28 Dose: 5 mg Documented by: Aspirin (Ecotrin Ectab) 81 mg PO DAILY [facility] Stop: 03/20/19 08:59 Last Admin: 02/21/19 08:28 Dose: 81 mg Documented by: Benzonatate (Tessalon Perle) 100 mg PO TID PRN PRN Reason: Cough Stop: 03/19/19 14:55 Bismuth Subsalicylate (Kaopectate) 15 ml PO PRN PRN PRN Reason: Loose Stool Stop: 03/19/19 14:54 Buspirone HCl (Buspar) 15 mg PO BID17 [facility] Stop: 03/21/19 16:59 Last Admin: 02/21/19 17:39 Dose: 15 mg Documented by: Calcium Carbonate (Tums) 1,500 mg PO TID PRN PRN Reason: Heartburn Stop: 03/20/19 17:35 Last Admin: 02/18/19 22:19 Dose: 1,500 mg Documented by: Capsaicin (Zostrix) 1 appln EXT TID PRN PRN Reason: knee pain Stop: 03/20/19 11:42 Last Admin: 02/21/19 11:57 Dose: 1 appln Documented by: Duloxetine HCl (Cymbalta) 120 mg PO QAM [facility] Stop: 03/23/19 08:59 Last Admin: 02/21/19 08:27 Dose: 120 mg Documented by: Gabapentin (Neurontin) 300 mg PO BID [facility] Stop: 03/23/19 20:59 Last Admin: 02/21/19 21:27 Dose: 300 mg Documented by: Hydroxyzine HCl (Vistaril) 25 mg PO Q4H PRN PRN Reason: Anxiety Stop: 03/19/19 14:54 Last Admin: 02/17/19 16:53 Dose: 25 mg Documented by: Hydroxyzine HCl (Vistaril) 100 mg PO HS PRN PRN Reason: Insomnia Stop: 03/19/19 14:54 Last Admin: 02/20/19 20:37 Dose: 100 mg Documented by: Levothyroxine Sodium (Synthroid) 75 mcg PO DAILYBB [facility] Stop: 03/20/19 07:59 Last Admin: 02/21/19 08:27 Dose: 75 mcg Documented by: Magnesium Hydroxide (Milk Of Magnesia) 30 ml PO DAILY PRN PRN Reason: Constipation Stop: 03/19/19 14:54 Metformin HCl (Glucophage) 500 mg PO BIDM [facility] Stop: 03/23/19 17:44 Last Admin: 02/21/19 17:39 Dose: 500 mg Documented by: Olanzapine (Zyprexa) 10 mg PO HS [facility] Stop: 03/20/19 21:59 Last Admin: 02/21/19 21:27 Dose: 10 mg Documented by: Oxybutynin Chloride (Ditropan Xl) 10 mg PO DAILY [facility] Stop: 03/20/19 08:59 Last Admin: 02/21/19 08:27 Dose: 10 mg Documented by: Pantoprazole Sodium (Protonix) 40 mg PO QAM [facility] Stop: 03/20/19 08:59 Last Admin: 02/21/19 08:28 Dose: 40 mg Documented by: Polyethylene Glycol (Miralax Powder Packet) 17 gm PO DAILY PRN PRN Reason: Constipation Stop: 03/19/19 19:38 Last Admin: 02/20/19 18:17 Dose: 17 gm Documented by: Simvastatin (Zocor) 40 mg PO HS [facility] Stop: 03/19/19 21:59 Last Admin: 02/21/19 21:27 Dose: 40 mg Documented by: Sodium Chloride ([place] Nasal) 1 - 2 sprays NA PRN PRN PRN Reason: Nasal Dryness/Congestion Stop: 03/19/19 14:54 Sumatriptan Succinate (Imitrex) 25 mg PO UD PRN PRN Reason: Migraine Headache Stop: 03/19/19 14:55 Trazodone HCl (Desyrel) 100 mg PO HS PRN PRN Reason: insomnia Stop: 03/20/19 21:59 Vitamin D (Vitamin D3) 2,000 units PO DAILY [facility] Stop: 03/20/19 08:59 Last Admin: 02/21/19 08:28 Dose: 2,000 units Documented by: Mental Health & Subst Abuse Tx Psychiatrist Name of Psychiatrist: Radha De La Cruz Psychiatrist's Date of Appointment with Psychiatrist: 03/03/19 Time of Appointment with Psychiatrist: 1:00pm Psychiatric Appointment Comment: [address] [facility], [place] [address] Plumbing Contractor Name of Plumbing Contractor: [employer] Phone Number for Plumbing Contractor: Case Management Appointment Comment: [address], [address], [place] [address] Post Discharge Appointments Primary Care Physician Name Of Family Doctor: Dr. tSeph [facility] Date of Appointment with PCP: 03/04/19 Time of Appointment with PCP: 1:15pm Provider Appointment Comment: [address], [place] [id number] Contact Information Discharge Discharge Address: [address] [place] [address], [place] [address] CPT Code CPT Code 24085 (1) Diabetes mellitus Diabetes mellitus complication status: without complication Diabetes mellitus fdc insulin use: without salvage determiner use Diabetes mellitus type: type 2 Qualified Code(s): E11.9 - Type 2 diabetes mellitus without complications (2) HLD (hyperlipidemia) Hyperlipidemia type: unspecified Qualified Code(s): E78.5 - Hyperlipidemia, unspecified (3) Hypothyroidism Hypothyroidism type: unspecified Qualified Code(s): E03.9 - Hypothyroidism, u nspecified (4) GERD (gastroesophageal reflux disease) Esophagitis presence: esophagitis presence not specified Qualified Code(s): K21.9 - Gastro-esophageal reflux disease without esophagitis (5) Hypertension Hypertension type: essential hypertension Qualified Code(s): I10 - Essential (primary) hypertension
[2019-02-22] MEDS: OXYBUTYNIN CHLORIDE XL 5 MG TABCR PO SCH (08:58)
[2019-02-22] MEDS: DULOXETINE HCL 30 MG CAP PO SCH (08:58)
[2019-02-22] MEDS: LEVOTHYROXINE SODIUM 75 MCG TABLET PO SCH (08:58)
[2019-02-22] MEDS: BusPIRone 15 MG TAB PO SCH ×2 (08:58→17:13)
[2019-02-22] MEDS: ASPIRIN 81 MG ECTAB PO SCH (08:58)
[2019-02-22] MEDS: METFORMIN HCL 500 MG TAB PO SCH ×2 (08:59→18:51)
[2019-02-22] MEDS: GABAPENTIN 300 MG CAP PO SCH ×2 (08:59→20:46)
[2019-02-22] MEDS: CHOLECALCIFEROL 1,000 UNITS TAB PO SCH (08:59)
[2019-02-22] MEDS: AMLODIPINE BESYLATE 5 MG TAB PO SCH (08:59)
[2019-02-22] MEDS: PANTOprazole 40 MG TAB PO SCH (08:59)
[2019-02-22] MEDS: ACETAMINOPHEN 325 MG TAB PO PRN (10:07)
[2019-02-22] MEDS: CAPSAICIN CR 0.075% 60 GM TUBE EXT PRN (11:47)
[2019-02-22] MEDS: POLYETHYLENE (MIRALAX) 17 GM PACK PO PRN (17:15)
[2019-02-22] MEDS: OLANZapine 10 MG TAB PO SCH (20:45)
[2019-02-22] MEDS: SIMVASTATIN 40 MG TAB PO SCH (20:45)
--- NOTE | 2019-02-23 08:48 | Psychiatric Progress Note ---
Date of Service February 23, 2019 Impression / Recommendations Impression 78-year-old female admitted medically on 02/13/19 after an intentional overdose of #14 tablets of Ambien 5mg. Pt admits that the overdose was an attempt to end her life, but denies significant psychosocial stressors leading her to this attempt. Largest recent stressor was reported to be side effects to a recent medication trial (reported to have been lamotrigine). Will consider further titration of duloxetine beyond home dose of 90mg or titration of olanzapine beyond reported home dose of "5 or 10mg." Pt's family has requested assistance with looking into alternative housing options. Pt will also require referrals to outpatient providers, and a case liner may be beneficial as well. Although her suicidal ideation has reportedly resolved, she is rather flippant about her serious suicide attempt and will require mitigation of risk factors to reduce risk of harm to self on an outpatient basis. Until then, inpatient psychiatric treatment is medically necessary. (1) Intentional drug overdose: 02/17 - Admitted to a locked inpatient behavioral health unit, on q15 minute safety checks - Encourage medication initiation/adjustments as indicated - Encourage participation in group and recreational therapies - Gather collateral information from outpatient providers - Suggest family meeting to involve outpatient supports in safety planning - Arrange appropriate aftercare 02/18 - Reporting ongoing hopelessness and SI this morning after having to recall information about her suicide attempt - Unable to contract for safety outside of the hospital setting 02/20 - Pt denies overt SI, but admits to hopelessness and significant uncertainty that limits her ability to contract for safety outside of the hospital setting 02/21 -The patient notes that she has not been having thoughts of suicide in the hospital, but says that she cannot say for certain that the thoughts of suicide will not return following discharge, given her chronic pain. -We discussed in some detail my recommendation that she occupy herself with pursuing pain managementwhich may include surgical interventions, nerve blocks, and other non-narcotic interventions. -The patient tells me that she understands why her son and [id number] are reluctant to allow her to live in the house with them, given that they have younger children and they are concerned about the trauma that might be inflicted on the children should she commit suicide in the house where 1 of the children might find her . The patient has, "I am a mother, so I understand why the are taking the position that they are taking." -The patient also agrees with the recommendation that she have other people manage her medications so that she is unlikely to have a stockpile of "14 Ambien pills" available at any given time. 02/22 - Does not admit to suicidal ideation today, but openly reports that she has not ruled out the idea of "taking pills" to overdose - Continue to encourage healthy and effective coping strategies 02/23 - Pt continues to offer vague responses to questions regarding suicidality, and cannot at this time clearly articulate ability to contract for safety outside of the hospital (2) Mood disorder: 02/17 - Differential diagnosis includes historical diagnosis of bipolar disorder, major depressive disorder, as well as - Continue home medication regimen: duloxetine to be titrated to 60mg (home dose reportedly 90mg); buspirone 10mg BID (home dose reportedly 20mg BID); and olanzapine 5mg qHS (home dose reportedly "either 5 or 10" per patient). - Fasting blood work completed on 02/14 - lipid panel WNL, estimated average glucose and A1c elevated - Coordinate care with outpatient psychiatrist; may need referral for a new provider in light of psychiatrist's group home - Gather collateral information from family - Encourage attendance of group and recreational programming - Assist with development of healthy coping strategies 02/18 - Continue titration to home medication dosing - will titrate duloxetine to 90mg tomorrow morning, olanzapine to 10mg qHS and continue buspirone at 10mg BID - as mood concerns seem to be more prevalent than anxiety at present - Due to poor sleep (and discontinuation of zolpidem), will increase prn HS dose of hydroxyzine to 100mg. Will also have order available for 100mg of trazodone if hydroxyzine is ineffective - titration of olanzapine may also prove beneficial for sleep 02/19 - Will continue duloxetine 90mg, which was started today - consider titration to 120mg in the next few days - Will increase buspirone to 15mg BID - as patient's primary concern today is anxiety - Continue olanzapine 10mg qHS - Pt did receive hydroxyzine 100mg last evening, in conjunction with titrated dose of olanzapine - reporting improved sleep - Family meeting with son scheduled for 02/21 02/20 - Titrating duloxetine to 120mg daily, starting tomorrow morning - continue remained of psychiatric medications unchanged - Family meeting with son scheduled for 02/21 - Continue to explore housing opportunities, as patient not permitted to return home with her son after discharge 02/21 -The patient's dose of duloxetine has been increased to 120 mg daily. Patient reports that she does believe the duloxetine as well as gabapentin have helped with her chronic pain, but adds "not much." -As noted above, the patient says that she does not feel particularly depressed, as and "sad." Instead, she says that her suicidal thoughts come to her because of her chronic pain, combined with the psychosocial stressor of feeling useless. -As above, we are emphasizing the importance of focusing on pain management as a way of addressing the patient's significant mood alterations. -We have also suggested pet therapy, or even the possibility of acquiring her own pet in her new apartment. 02/22 - Continue medication regimen as above - Continue to encourage group and recreational programming; focus on processing thoughts and feelings related to upcoming transitions - Assist in development of healthy and effective coping strategies - Encourage patient participation in discharge planning, to encourage ownership and autonomy in this next chapter 02/22 - Increase gabapentin to 300mg TID with patient's permission, after discussion of risks, benefits, and potential side effects - Continue with current treatment plan - Continue to encourage participation in group activities and therapeutic interventions (3) HLD (hyperlipidemia): 02/17 - Continue home dose of simvastatin 40mg qHS - Fasting lipid panel from 02/14 reviewed - all values WNL (4) GERD (gastroesophageal reflux disease): 02/17 - Continue pantoprazole 40mg daily, from the medical floor 02/21 -The patient reports no recent active GERD symptoms (5) Hypothyroidism: 02/17 - Continue home dose of levothyroxine 75mcg daily (6) Diabetes mellitus: 02/17 - Reported on medical floor, recommend following - Estimated average glucose - 171; HgbA1c - 7.6% 02/18 - Will follow blood glucose with daily glucometer checks before breakfast - Continue to follow to determine if addition of medications will be pursued 02/20 - Reviewed persistently elevated blood glucose, and provided basic education on diabetes - patient states she is familiar, as she was previously diagnosed but was able to improve her numbers with diet and exercise - Discussed recommendation to begin metformin, in addition with healthy lifestyle changes in attempts to lower blood glucose. Risks, benefits, and potential side effects of the medication were reviewed. Pt is agreeable with initiating metformin 500mg daily with dinner. - health promotion educator consultation was offered; however, patient declines at this time as she feels she has the necessary tools to make appropriate dietary changes 02/21 -Patient's blood glucose remains elevated today at 149. Metformin will be increased to 500 mg twice a day. - Will scheduled PCP follow-up to discuss medication regimen further after discharge (7) Hypertension: 02/17 - Continue amlodipine 5mg qAM as initiated on the medical floor 02/18 - BP has remained stable since admission to [facility] - Continue to monitor per daily vitals order 02/21 -The patient's pulse is elevated today, but her blood pressure is within normal limits. We will continue to monitor. Risk Factors Assessment Male: No : Yes Do You Have Access To A Gun?: No Mental Health Diagnoses: Yes Substance Use Disorders: No Previous Attempt: Yes Previous Psychiatric Hospitalization: Yes Hopelessness: Yes Smoker: No Protective Factors Assessment Religion Beliefs: Yes : No Responsible for Young Children: No Employed: No Supportive Family: Yes Good Rapport with Provider: Yes Interval History Identifying Information MING VELAZQUEZ is a 78-year-old F who currently lives in [place], [place] with her son and his family. Pt has a reported history of bipolar disorder, and was admitted on 02/17/19 13:50 on a 201 voluntary commitment after being discharged from the medical floor where she was treated following an intention overdose. Pt had overdosed on #14 tablets of 5mg zolpidem. Chief Complaint "Oh, I'm just getting awake." Review of Systems Notes Constitutional: denied Cardiovascular: reports poor circulation in feet, painful this morning Respiratory: denied Gastrointestinal: denied Neurological: denied Psychiatric: denies symptoms other than stated above Total of at least 10 systems reviewed, pertinent positives as above and in HPI. Sleep Information Total Hours of Sleep: 7 Sleep Comments: pt on q-15 minute checks Meal Information Percent Meal Consumed - Breakfast: 50 Percent Meal Consumed - Lunch: 100 Percent Meal Consumed - Dinner: 100 Subjective Subjective Patient was seen & assessed and interval progress reviewed with nursing and social work. Staff report the patient continues to be somewhat isolative on the unit. Patient rated her mood a 4/10 and "apprehensive." She will still need for a therapy appointment to be arranged in order to complete aftercare referrals. Patient was seen today to assess progress since admission. She states that she is still "getting awake" this morning, but that she feels rather decent. Patient states that she is "trying not to think about things", and continues to feel overwhelmed with upcoming transitions. 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 Just coping in general." Patient was asked if there were any additional supports she felt would be beneficial for her at time of discharge, but she admits to having transportation opportunities and feels she will be able to care for herself. Patient continues to provide vague responses to questions regarding suicidality. She was asked specifically about ongoing thoughts to harm herself, and responded by saying "eh, I don't really know. As long as I have time to rest. We'll see I guess." She continues to admit to feeling safe here on the unit. Patient denies other needs or concerns at this time. Physical Exam Psychiatric Orientation: alert, oriented x 3 and cooperative (superficially) Apperance: appropriately dressed (casually in jeans and nice shirt), appropriately groomed and appeared stated age Eye Contact: good eye contact Motor Behavior: no abnormal motor movements (observed while sitting upright on edge of bed) Speech: normal rate/rhythm/volume of speech Affect: + blunted affect and mood congruent with affect Mood: + depressed mood ("Oh, I don't know. We'll see.") Thought Process: goal directed thought process, clear/coherent thought process and thought association intact Thought Content: reality based without delusions and + hopelessness Suicidal Thoughts: denies suicidal thoughts (does not clearly verbalize SI, but cannot articulate ability to contract ) History of impulsive overdoses increases risk of future harm to self Homicidal Thoughts: denies homicidal thoughts Hallucinations: no auditory hallucinations and no visual hallucinations Cognition: attention grossly intact and language grossly intact Insight: + limited insight Judgement: + limited judgement Vital Signs (Past 24 Hours) Last Vital Signs Temp 36.9 C 02/23/19 07:02 Pulse 107 H 02/23/19 08:47 Resp 18 02/23/19 07:02 BP 127/61 02/23/19 08:47 Results & Data Laboratory Results Laboratory Results - last 24 hr 02/22/19 08:49 POC Glucose 144 H Current Inpatient Medications Current Inpatient Medications: Current Inpatient Medications Acetaminophen (Tylenol) 650 mg PO Q4H PRN PRN Reason: Headache or Minor Fever Stop: 03/19/19 14:54 Last Admin: 02/22/19 10:07 Dose: 650 mg Documented by: Al Hydrox/Mg Hydrox/Simethicone (Maalox) 30 ml PO Q4H PRN PRN Reason: GI Upset Stop: 03/19/19 14:54 Last Admin: 02/17/19 19:34 Dose: 30 ml Documented by: Albuterol (Ventolin Hfa) 2 puffs INH Q4H PRN PRN Reason: Wheezing Stop: 03/19/19 14:55 Amlodipine Besylate (Norvasc) 5 mg PO QAM [facility] Stop: 03/20/19 08:59 Last Admin: 02/22/19 08:59 Dose: 5 mg Documented by: Aspirin (Ecotrin Ectab) 81 mg PO DAILY [facility] Stop: 03/20/19 08:59 Last Admin: 02/22/19 08:58 Dose: 81 mg Documented by: Benzonatate (Tessalon Perle) 100 mg PO TID PRN PRN Reason: Cough Stop: 03/19/19 14:55 Bismuth Subsalicylate (Kaopectate) 15 ml PO PRN PRN PRN Reason: Loose Stool Stop: 03/19/19 14:54 Buspirone HCl (Buspar) 15 mg PO BID17 [facility] Stop: 03/21/19 16:59 Last Admin: 02/22/19 17:13 Dose: 15 mg Documented by: Calcium Carbonate (Tums) 1,500 mg PO TID PRN PRN Reason: Heartburn Stop: 03/20/19 17:35 Last Admin: 02/18/19 22:19 Dose: 1,500 mg Documented by: Capsaicin (Zostrix) 1 appln EXT TID PRN PRN Reason: knee pain Stop: 03/20/19 11:42 Last Admin: 02/22/19 11:47 Dose: 1 appln Documented by: Duloxetine HCl (Cymbalta) 120 mg PO QAM [facility] Stop: 03/23/19 08:59 Last Admin: 02/22/19 08:58 Dose: 120 mg Documented by: Gabapentin (Neurontin) 300 mg PO BID [facility] Stop: 03/23/19 20:59 Last Admin: 02/22/19 20:46 Dose: 300 mg Documented by: Hydroxyzine HCl (Vistaril) 25 mg PO Q4H PRN PRN Reason: Anxiety Stop: 03/19/19 14:54 Last Admin: 02/22/19 18:01 Dose: 25 mg Documented by: Hydroxyzine HCl (Vistaril) 100 mg PO HS PRN PRN Reason: Insomnia Stop: 03/19/19 14:54 Last Admin: 02/20/19 20:37 Dose: 100 mg Documented by: Levothyroxine Sodium (Synthroid) 75 mcg PO DAILYBB [facility] Stop: 03/20/19 07:59 Last Admin: 02/22/19 08:58 Dose: 75 mcg Documented by: Magnesium Hydroxide (Milk Of Magnesia) 30 ml PO DAILY PRN PRN Reason: Constipation Stop: 03/19/19 14:54 Metformin HCl (Glucophage) 500 mg PO BIDM [facility] Stop: 03/23/19 17:44 Last Admin: 02/22/19 18:51 Dose: 500 mg Documented by: Olanzapine (Zyprexa) 10 mg PO HS [facility] Stop: 03/20/19 21:59 Last Admin: 02/22/19 20:45 Dose: 10 mg Documented by: Oxybutynin Chloride (Ditropan Xl) 10 mg PO DAILY [facility] Stop: 03/20/19 08:59 Last Admin: 02/22/19 08:58 Dose: 10 mg Documented by: Pantoprazole Sodium (Protonix) 40 mg PO QAM [facility] Stop: 03/20/19 08:59 Last Admin: 02/22/19 08:59 Dose: 40 mg Documented by: Polyethylene Glycol (Miralax Powder Packet) 17 gm PO DAILY PRN PRN Reason: Constipation Stop: 03/19/19 19:38 Last Admin: 02/22/19 17:15 Dose: 17 gm Documented by: Simvastatin (Zocor) 40 mg PO HS [facility] Stop: 03/19/19 21:59 Last Admin: 02/22/19 20:45 Dose: 40 mg Documented by: Sodium Chloride ([place] Nasal) 1 - 2 sprays NA PRN PRN PRN Reason: Nasal Dryness/Congestion Stop: 03/19/19 14:54 Sumatriptan Succinate (Imitrex) 25 mg PO UD PRN PRN Reason: Migraine Headache Stop: 03/19/19 14:55 Trazodone HCl (Desyrel) 100 mg PO HS PRN PRN Reason: insomnia Stop: 03/20/19 21:59 Vitamin D (Vitamin D3) 2,000 units PO DAILY [facility] Stop: 03/20/19 08:59 Last Admin: 02/22/19 08:59 Dose: 2,000 units Documented by: Mental Health & Subst Abuse Tx Psychiatrist Name of Psychiatrist: Radha De La Cruz Psychiatrist's Date of Appointment with Psychiatrist: 03/03/19 Time of Appointment with Psychiatrist: 1:00pm Psychiatric Appointment Comment: [address], [place] [address] [employer] Ragger Name of [place] Sh[place] Ragger: [facility] Service Juan Crenshawle Phone Number for White Shoe Ragger: Case Management Appointment Comment: [address], [address], [place] [address] Post Discharge Appointments Primary Care Physician Name Of Family Doctor: Dr. 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 insulin use: without care home use Diabetes mellitus type: type 2 Qualified Code(s): E11.9 - Type 2 diabetes mellitus without complications (2) HLD (hyperlipidemia) Hyperlipidemia type: unspecified Qualified Code(s): E78.5 - Hyperlipidemia, unspecified (3) Hypothyroidism Hypothyroidism type: unspecified Qualified Code(s): E03.9 - Hypothyroidism, unspecified (4) GERD (gastroesophageal reflux disease) Esophagitis presence: esophagitis presence not specified Qualified Code(s): K21.9 - Gastro-esophageal reflux disease without esophagitis (5) Hypertension Hypertension type: essential hypertension Qualified Code(s): I10 - Essential (primary) hypertension
[2019-02-23] MEDS: DULOXETINE HCL 30 MG CAP PO SCH (08:50)
[2019-02-23] MEDS: LEVOTHYROXINE SODIUM 75 MCG TABLET PO SCH (08:50)
[2019-02-23] MEDS: BusPIRone 15 MG TAB PO SCH ×2 (08:50→17:50)
[2019-02-23] MEDS: AMLODIPINE BESYLATE 5 MG TAB PO SCH (08:51)
[2019-02-23] MEDS: ASPIRIN 81 MG ECTAB PO SCH (08:51)
[2019-02-23] MEDS: OXYBUTYNIN CHLORIDE XL 5 MG TABCR PO SCH (08:51)
[2019-02-23] MEDS: GABAPENTIN 300 MG CAP PO SCH ×2 (08:51→21:00)
[2019-02-23] MEDS: CHOLECALCIFEROL 1,000 UNITS TAB PO SCH (08:51)
[2019-02-23] MEDS: METFORMIN HCL 500 MG TAB PO SCH ×2 (08:51→17:51)
[2019-02-23] MEDS: PANTOprazole 40 MG TAB PO SCH (08:51)
[2019-02-23] MEDS: ACETAMINOPHEN 325 MG TAB PO PRN ×2 (08:52→18:33)
[2019-02-23] MEDS: OLANZapine 10 MG TAB PO SCH (21:00)
[2019-02-23] MEDS: SIMVASTATIN 40 MG TAB PO SCH (21:00)
[2019-02-24] MEDS: BusPIRone 15 MG TAB PO SCH ×2 (08:40→17:36)
[2019-02-24] MEDS: DULOXETINE HCL 30 MG CAP PO SCH (08:40)
[2019-02-24] MEDS: LEVOTHYROXINE SODIUM 75 MCG TABLET PO SCH (08:40)
[2019-02-24] MEDS: OXYBUTYNIN CHLORIDE XL 5 MG TABCR PO SCH (08:41)
[2019-02-24] MEDS: ASPIRIN 81 MG ECTAB PO SCH (08:42)
[2019-02-24] MEDS: METFORMIN HCL 500 MG TAB PO SCH ×2 (08:42→17:35)
[2019-02-24] MEDS: GABAPENTIN 300 MG CAP PO SCH ×3 (08:42→21:00)
[2019-02-24] MEDS: AMLODIPINE BESYLATE 5 MG TAB PO SCH (08:43)
[2019-02-24] MEDS: CHOLECALCIFEROL 1,000 UNITS TAB PO SCH (08:43)
[2019-02-24] MEDS: PANTOprazole 40 MG TAB PO SCH (08:43)
[2019-02-24] MEDS: CAPSAICIN CR 0.075% 60 GM TUBE EXT PRN (12:13)
[2019-02-24] MEDS: ACETAMINOPHEN 325 MG TAB PO PRN (12:13)
--- NOTE | 2019-02-24 12:34 | Psychiatric Progress Note ---
Date of Service February 24, 2019 Impression / Recommendations Impression 78-year-old female admitted medically on 02/13/19 after an intentional overdose of #14 tablets of Ambien 5mg. Pt admits that the overdose was an attempt to end her life, but denies significant psychosocial stressors leading her to this attempt. Largest recent stressor was reported to be side effects to a recent medication trial (reported to have been lamotrigine). Will consider further titration of duloxetine beyond home dose of 90mg or titration of olanzapine beyond reported home dose of "5 or 10mg." Pt's family has requested assistance with looking into alternative housing options. Pt will also require referrals to outpatient providers, and a nurse outreach case manager may be beneficial as well. Although her suicidal ideation has reportedly resolved, she is rather flippant about her serious suicide attempt and will require mitigation of risk factors to reduce risk of harm to self on an outpatient basis. Her condition has not improved significantly during her admission, and she does not yet have a therapist - which is viewed as a very important part of discharge/safety planning given the fact that she will be living independently for "the first time in my life", her history of intentional overdoses, and concern for significant life changes which may contribute to continued impulsive decisions. Until aftercare can be firmly arranged and patient can better contract for safety outside of the hospital setting, inpatient psychiatric treatment is medically necessary. (1) Intentional drug overdose: 02/17 - Admitted to a locked inpatient behavioral health unit, on q15 minute safety checks - Encourage medication initiation/adjustments as indicated - Encourage participation in group and recreational therapies - Gather collateral information from outpatient providers - Suggest family meeting to involve outpatient supports in safety planning - Arrange appropriate aftercare 02/18 - Reporting ongoing hopelessness and SI this morning after having to recall information about her suicide attempt - Unable to contract for safety outside of the hospital setting 02/20 - Pt denies overt SI, but admits to hopelessness and significant uncertainty that limits her ability to contract for safety outside of the hospital setting 02/21 -The patient notes that she has not been having thoughts of suicide in the hospital, but says that she cannot say for certain that the thoughts of suicide will not return following discharge, given her chronic pain. -We discussed in some detail my recommendation that she occupy herself with pursuing pain managementwhich may include surgical interventions, nerve blocks, and other non-narcotic interventions. -The patient tells me that she understands why her son and [id number] are reluctant to allow her to live in the house with them, given that they have younger children and they are concerned about the trauma that might be inflicted on the children should she commit suicide in the house where 1 of the children might find her . The patient has, "I am a mother, so I understand why the are taking the position that they are taking." -The patient also agrees with the recommendation that she have other people manage her medications so that she is unlikely to have a stockpile of "14 Ambien pills" available at any given time. 02/22 - Does not admit to suicidal ideation today, but openly reports that she has not ruled out the idea of "taking pills" to overdose - Continue to encourage healthy and effective coping strategies 02/23 - Pt continues to offer vague responses to questions regarding suicidality, and cannot at this time clearly articulate ability to contract for safety outside of the hospital 02/24 - Pt denies active SI at this time, but when asked safety planning questions - she predominantly states "we'll just have to see" and "just take it one day at a time." - She is not able to verbalize a clear plan for what she would do, or who she would call, if she experienced SI while living independently - While she may not be actively suicidal, she is considered to remain at greater risk of harm to self compared to the general population due to several impulsive overdoses and rather significant life changes (2) Mood disorder: 02/17 - Differential diagnosis includes historical diagnosis of bipolar disorder, major depressive disorder, as well as - Continue home medication regimen: duloxetine to be titrated to 60mg (home dose reportedly 90mg); buspirone 10mg BID (home dose reportedly 20mg BID); and olanzapine 5mg qHS (home dose reportedly "either 5 or 10" per patient). - Fasting blood work completed on 02/14 - lipid panel WNL, estimated average glucose and A1c elevated - Coordinate care with outpatient psychiatrist; may need referral for a new provider in light of psychiatrist's nursing home - Gather collateral information from family - Encourage attendance of group and recreational programming - Assist with development of healthy coping strategies 02/18 - Continue titration to home medication dosing - will titrate duloxetine to 90mg tomorrow morning, olanzapine to 10mg qHS and continue buspirone at 10mg BID - as mood concerns seem to be more prevalent than anxiety at present - Due to poor sleep (and discontinuation of zolpidem), will increase prn HS dose of hydroxyzine to 100mg. Will also have order available for 100mg of trazodone if hydroxyzine is ineffective - titration of olanzapine may also prove beneficial for sleep 02/19 - Will continue duloxetine 90mg, which was started today - consider titration to 120mg in the next few days - Will increase buspirone to 15mg BID - as patient's primary concern today is anxiety - Continue olanzapine 10mg qHS - Pt did receive hydroxyzine 100mg last evening, in conjunction with titrated dose of olanzapine - reporting improved sleep - Family meeting with son scheduled for 02/21 02/20 - Titrating duloxetine to 120mg daily, starting tomorrow morning - continue remained of psychiatric medications unchanged - Family meeting with son scheduled for 02/21 - Continue to explore housing opportunities, as patient not permitted to return home with her son after discharge 02/21 -The patient's dose of duloxetine has been increased to 120 mg daily. Patient reports that she does believe the duloxetine as well as gabapentin have helped with her chronic pain, but adds "not much." -As noted above, the patient says that she does not feel particularly depressed, as and "sad." Instead, she says that her suicidal thoughts come to her because of her chronic pain, combined with the psychosocial stressor of feeling useless. -As above, we are emphasizing the importance of focusing on pain management as a way of addressing the patient's significant mood alterations. -We have also suggested pet therapy, or even the possibility of acquiring her own pet in her new apartment. 02/22 - Continue medication regimen as above - Continue to encourage group and recreational programming; focus on processing thoughts and feelings related to upcoming transitions - Assist in development of healthy and effective coping strategies - Encourage patient participation in discharge planning, to encourage ownership and autonomy in this next chapter 02/23 - Increase gabapentin to 300mg TID with patient's permission, after discussion of risks, benefits, and potential side effects - Continue with current treatment plan - Continue to encourage participation in group activities and therapeutic interventions 02/24 - Continue current medication regimen - pt reports ongoing "nervousness" in her abdominal region, gabapentin to be titrated for pain as above (which will ideally benefit anxiety as well) - Continue to offer encouragement regarding anticipated life changes and transition to independent living - Continue to encourage participation in groups, as patient has been isolative at times (3) HLD (hyperlipidemia): 02/17 - Continue home dose of simvastatin 40mg qHS - Fasting lipid panel from 02/14 reviewed - all values WNL (4) GERD (gastroesophageal reflux disease): 02/17 - Continue pantoprazole 40mg daily, from the medical floor 02/21 -The patient reports no recent active GERD symptoms (5) Hypothyroidism: 02/17 - Continue home dose of levothyroxine 75mcg daily (6) Diabetes mellitus: 02/17 - Reported on medical floor, recommend following - Estimated average glucose - 171; HgbA1c - 7.6% 02/18 - Will follow blood glucose with daily glucometer checks before breakfast - Continue to follow to determine if addition of medications will be pursued 02/20 - Reviewed persistently elevated blood glucose, and provided basic education on diabetes - patient states she is familiar, as she was previously diagnosed but was able to improve her numbers with diet and exercise - Discussed recommendation to begin metformin, in addition with healthy lifestyle changes in attempts to lower blood glucose. Risks, benefits, and potential side effects of the medication were reviewed. Pt is agreeable with initiating metformin 500mg daily with dinner. - adaptive physical educator consultation was offered; however, patient declines at this time as she feels she has the necessary tools to make appropriate dietary changes 02/21 -Patient's blood glucose remains elevated today at 149. Metformin will be increased to 500 mg twice a day. - Will scheduled PCP follow-up to discuss medication regimen further after discharge (7) Hypertension: 02/17 - Continue amlodipine 5mg qAM as initiated on the medical floor 02/18 - BP has remained stable since admission to [facility] - Continue to monitor per daily vitals order 02/21 -The patient's pulse is elevated today, but her blood pressure is within normal limits. We will continue to monitor. 02/24 - BP has remained largely within normal limits; pulse mildly elevated - reporting "nervousness" but otherwise asymptomatic Risk Factors Assessment Male: No : Yes Do You Have Access To A Gun?: No Mental Health Diagnoses: Yes Substance Use Disorders: No Previous Attempt: Yes Previous Psychiatric Hospitalization: Yes Hopelessness: Yes Smoker: No Protective Factors Assessment Jain Beliefs: Yes : No Responsible for Young Children: No Employed: No Supportive Family: Yes Good Rapport with Provider: Yes Interval History Identifying Information MING VELAZQUEZ is a 78-year-old F who currently lives in [place], [place] with her son and his family. Pt has a reported history of bipolar disorder, and was admitted on 02/17/19 13:50 on a 201 voluntary commitment after being discharged from the medical floor where she was treated following an intention overdose. Pt had overdosed on #14 tablets of 5mg zolpidem. Chief Complaint "Ok, I'm still pretty nervous." Review of Systems Notes Constitutional: denied Cardiovascular: denied Respiratory: denied Gastrointestinal: reports "nervous" feeling in abdominal region Neurological: denied Psychiatric: denies symptoms other than stated above Total of at least 10 systems reviewed, pertinent positives as above and in HPI. Sleep Information Total Hours of Sleep: 8 Sleep Comments: pt on q-15 minute checks Meal Information Percent Meal Consumed - Breakfast: 90 Percent Meal Consumed - Lunch: 75 Percent Meal Consumed - Dinner: 100 Subjective Subjective Patient was seen & assessed and interval progress reviewed with treatment team. Staff report the patient rated her mood a 4/10 and "tense and apprehensive" last evening. Housing arrangements after discharge remain unclear. Pt is scheduled to meet with her nurse outreach case manager this morning. Pt was seen today to assess progress since admission. Pt states she is "ok", but admits to "I'm still nervous in my stomach." Pt admits this feeling is improving, but reports ongoing concern about the uncertainty of her situation moving forward. Pt's biggest concern remains that "this is all new, I've never lived by myself before." While she is in agreement with the decision to live independently, she continues to struggle with how this will be managed. When asked concrete questions about how she would handle various situations, she repeats "I don't know, I'm trying to not think about it. Just taking it one day at a time." Pt does admit that she is not having suicidal thoughts today, but is not able to clearly articulate a reliable safety plan without excessive prompting. While she denies SI, she denies having anything she is excited for when she leaves the hospital, and conversation is not particularly future-oriented. Pt admits to this provider that she does not feel ready to leave the hospital yet, given ongoing uncertainties about her situation. She acknowledges that some of these anxieties will need to be addressed on an outpatient basis, but states she does not feel she would do well if she were to return home at this time. She denies particular needs or concerns at this time. Physical Exam Psychiatric Orientation: alert, oriented x 3 and cooperative (superficially) Apperance: appropriately dressed (casually and neatly, in long-sleeve shirt and leggings), appropriately groomed and appeared stated age Eye Contact: good eye contact Motor Behavior: steady gait and station and no abnormal motor movements Speech: normal rate/rhythm/volume of speech Affect: + depressed affect, + anxious affect and mood congruent with affect Mood: + depressed mood ("I don't know, I still don't feel great. Taking it a day at a time.") and + anxious mood ("there is still this nervousness in my stomach") Thought Process: clear/coherent thought process and thought association intact Thought Content: reality based without delusions, + hopelessness (ongoing, feeling she has lost value in life) and + loneliness (concerned about living alone, which "I have never done before.") Suicidal Thoughts: denies suicidal thoughts (but has difficulty answering questions related to safety planning), denies suicidal plan and denies suicidal intent Homicidal Thoughts: denies homicidal thoughts Hallucinations: no auditory hallucinations and no visual hallucinations Cognition: attention grossly intact and language grossly intact Insight: + limited insight Judgement: + limited judgement Vital Signs (Past 24 Hours) Last Vital Signs Temp 36.6 C 02/24/19 06:53 Pulse 102 H 02/24/19 06:53 Resp 18 02/24/19 06:53 BP 120/77 02/24/19 06:53 Results & Data Laboratory Results Laboratory Results - last 24 hr 02/24/19 08:25 POC Glucose 148 H Current Inpatient Medications Current Inpatient Medications: Current Inpatient Medications Acetaminophen (Tylenol) 650 mg PO Q4H PRN PRN Reason: Headache or Minor Fever Stop: 03/19/19 14:54 Last Admin: 02/23/19 18:33 Dose: 650 mg Documented by: Al Hydrox/Mg Hydrox/Simethicone (Maalox) 30 ml PO Q4H PRN PRN Reason: GI Upset Stop: 03/19/19 14:54 Last Admin: 02/17/19 19:34 Dose: 30 ml Documented by: Albuterol (Ventolin Hfa) 2 puffs INH Q4H PRN PRN Reason: Wheezing Stop: 03/19/19 14:55 Amlodipine Besylate (Norvasc) 5 mg PO QAM [facility] Stop: 03/20/19 08:59 Last Admin: 02/24/19 08:43 Dose: 5 mg Documented by: Aspirin (Ecotrin Ectab) 81 mg PO DAILY [facility] Stop: 03/20/19 08:59 Last Admin: 02/24/19 08:42 Dose: 81 mg Documented by: Benzonatate (Tessalon Perle) 100 mg PO TID PRN PRN Reason: Cough Stop: 03/19/19 14:55 Bismuth Subsalicylate (Kaopectate) 15 ml PO PRN PRN PRN Reason: Loose Stool Stop: 03/19/19 14:54 Buspirone HCl (Buspar) 15 mg PO BID17 [facility] Stop: 03/21/19 16:59 Last Admin: 02/24/19 08:40 Dose: 15 mg Documented by: Calcium Carbonate (Tums) 1,500 mg PO TID PRN PRN Reason: Heartburn Stop: 03/20/19 17:35 Last Admin: 02/18/19 22:19 Dose: 1,500 mg Documented by: Capsaicin (Zostrix) 1 appln EXT TID PRN PRN Reason: knee pain Stop: 03/20/19 11:42 Last Admin: 02/22/19 11:47 Dose: 1 appln Documented by: Duloxetine HCl (Cymbalta) 120 mg PO QAM [facility] Stop: 03/23/19 08:59 Last Admin: 02/24/19 08:40 Dose: 120 mg Documented by: Gabapentin (Neurontin) 300 mg PO TID [facility] Stop: 03/26/19 08:59 Last Admin: 02/24/19 08:42 Dose: 300 mg Documented by: Hydroxyzine HCl (Vistaril) 25 mg PO Q4H PRN PRN Reason: Anxiety Stop: 03/19/19 14:54 Last Admin: 02/22/19 18:01 Dose: 25 mg Documented by: Hydroxyzine HCl (Vistaril) 100 mg PO HS PRN PRN Reason: Insomnia Stop: 03/19/19 14:54 Last Admin: 02/20/19 20:37 Dose: 100 mg Documented by: Levothyroxine Sodium (Synthroid) 75 mcg PO DAILYBB [facility] Stop: 03/20/19 07:59 Last Admin: 02/24/19 08:40 Dose: 75 mcg Documented by: Magnesium Hydroxide (Milk Of Magnesia) 30 ml PO DAILY PRN PRN Reason: Constipation Stop: 03/19/19 14:54 Metformin HCl (Glucophage) 500 mg PO BIDM [facility] Stop: 03/23/19 17:44 Last Admin: 02/24/19 08:42 Dose: 500 mg Documented by: Olanzapine (Zyprexa) 10 mg PO HS [facility] Stop: 03/20/19 21:59 Last Admin: 02/23/19 21:00 Dose: 10 mg Documented by: Oxybutynin Chloride (Ditropan Xl) 10 mg PO DAILY [facility] Stop: 03/20/19 08:59 Last Admin: 02/24/19 08:41 Dose: 10 mg Documented by: Pantoprazole Sodium (Protonix) 40 mg PO QAM [facility] Stop: 03/20/19 08:59 Last Admin: 02/24/19 08:43 Dose: 40 mg Documented by: Polyethylene Glycol (Miralax Powder Packet) 17 gm PO DAILY PRN PRN Reason: Constipation Stop: 03/19/19 19:38 Last Admin: 02/22/19 17:15 Dose: 17 gm Documented by: Simvastatin (Zocor) 40 mg PO HS [facility] Stop: 03/19/19 21:59 Last Admin: 02/23/19 21:00 Dose: 40 mg Documented by: Sodium Chloride ([place] Nasal) 1 - 2 sprays NA PRN PRN PRN Reason: Nasal Dryness/Congestion Stop: 03/19/19 14:54 Sumatriptan Succinate (Imitrex) 25 mg PO UD PRN PRN Reason: Migraine Headache Stop: 03/19/19 14:55 Trazodone HCl (Desyrel) 100 mg PO HS PRN PRN Reason: insomnia Stop: 03/20/19 21:59 Vitamin D (Vitamin D3) 2,000 units PO DAILY [facility] Stop: 03/20/19 08:59 Last Admin: 02/24/19 08:43 Dose: 2,000 units Documented by: Mental Health & Subst Abuse Tx Psychiatrist [facility] Date of Appointment with Psychiatrist: 03/03/19 Time of Appointment with Psychiatrist: 1:00pm Psychiatric Appointment Comment: [address] , [place] [address] Neuro Intensivist Physician Name of Neuro Intensivist Physician: Base [employer] Juan Cifuentes Phone Number for Neuro Intensivist Physician: Case Management Appointment Comment: [address], [address], [place] [address] Post Discharge Appointments Primary Care Physician Name Of Family Doctor: Dr. Steph [facility] Date of Appointment with PCP: 03/04/19 Time of Appointment with PCP: 1:15pm Provider Appointment Comment: [address], [place] [address] Contact Information Discharge Discharge [address]: [address] [place] [address], [facility] [place] [address] CPT Code CPT Code 32142 (1) HLD (hyperlipidemia) Hyperlipidemia type: unspecified Qualified Code(s): E78.5 - Hyperlipidemia, unspecified (2) GERD (gastroesophageal reflux disease) Esophagitis presence: esophagitis presence not specified Qualified Code(s): K21.9 - Gastro-esophageal reflux disease without esophagitis (3) Hypothyroidism Hypothyroidism type: unspecified Qualified Code(s): E03.9 - Hypothyroidism, unspecified (4) Diabetes mellitus Diabetes mellitus type: type 2 Diabetes mellitus senior living insulin use: without ferry terminal supervisor use Diabetes mellitus complication status: without complication Qualified Code(s): E11.9 - Type 2 diabetes mellitus without complications (5) Hypertension Hypertension type: essential hypertension Qualified Code(s): I10 - Essential (primary) hypertension
[2019-02-24] MEDS: OLANZapine 10 MG TAB PO SCH (21:00)
[2019-02-24] MEDS: SIMVASTATIN 40 MG TAB PO SCH (21:00)
[2019-02-25] MEDS: BusPIRone 15 MG TAB PO SCH (08:45)
[2019-02-25] MEDS: ASPIRIN 81 MG ECTAB PO SCH (08:45)
[2019-02-25] MEDS: METFORMIN HCL 500 MG TAB PO SCH (08:45)
[2019-02-25] MEDS: DULOXETINE HCL 30 MG CAP PO SCH (08:45)
[2019-02-25] MEDS: LEVOTHYROXINE SODIUM 75 MCG TABLET PO SCH (08:45)
[2019-02-25] MEDS: OXYBUTYNIN CHLORIDE XL 5 MG TABCR PO SCH (08:45)
[2019-02-25] MEDS: PANTOprazole 40 MG TAB PO SCH (08:46)
[2019-02-25] MEDS: GABAPENTIN 300 MG CAP PO SCH ×2 (08:46→14:14)
[2019-02-25] MEDS: AMLODIPINE BESYLATE 5 MG TAB PO SCH (08:46)
[2019-02-25] MEDS: CHOLECALCIFEROL 1,000 UNITS TAB PO SCH (08:46)
--- NOTE | 2019-02-25 10:40 | Discharge Summary ---
Date of Service February 25, 2019 History of Present Illness Faye Dorsey (Patty) is a 78-year-old female admitted medically on 02/13/19 after being found unresponsive at home. Pt was found by her son, laying on the floor of their home in a pool of her vomit. During patient's medical admission, she had admitted to an intentional overdose prior to her ED presentation. Pt was treated for her overdose on the medical floor, and was transferred to [address] [place] [address] when medically cleared. Pt shares with this provider that she was started on a new medication 1 1/2 months prior to this admission. Pt does not recall the name of the medication, but states she was started "at 10, then 20, then 100. It made me sick to my stomach." She states that she experienced dizziness while on the medication, and states the medication also contributed to increased sedation. Pt states, "I started going to bed as soon as it got dark. I'd sleep from 5:00 until 8:00 in the morning." Pt reports that she was frustrated with how the medication was making her feel - "I was doing the trial, I started dragging my feet. The medi cation dragged me down to what I did." Pt states that other than her frustration with the perceived medication side effects - "I just woke up and realized it would be a whole day before nighttime when I could sleep, so I decided to end it all." When asked if she called anyone after her intentional overdose, she states "I didn't want to call, I didn't want anyone to find me." When asked about depressive symptoms, patient denies any significant changes recently aside from the perceived medication side effects and her increased desire for sleep. She denies noticeable changes in appetite, energy level, or other concerns. She denies significant anxiety recently. Aside from information reported above, patient denies any significant changes recently. She does not confirm any psychosocial stressors that she feels have been contributing - though admits her outpatient psychiatrist is retiring at the end of the month. Pt denies SI, HI, SIB, A/V hallucinations, paranoia, zeeshan/hypomania, OCD, PTSD, eating disorder, and other specific psychiatric symptoms. Physical Exam Mental Examination Well-nourished well-developed female appearing her stated age. Casually dressed, adequately groomed. Seated in no acute distress. Calm, cooperative, and pleasant. Contact and no abnormal movements. Mood is "better, ready to go." Affect is euthymic, appropriate, and congruent with stated mood. Speech is spontaneous, normal rate, volume, and tone thoughts are goal-directed. Alert and oriented. Denies SI, HI, hallucinations, and paranoia. No delusions are evident. Insight and judgment are fair. Vital Signs (Past 24 Hours) Last Vital Signs Temp 36.4 C L 02/25/19 06:49 Pulse 106 H 02/25/19 06:50 Resp 18 02/25/19 06:49 BP 116/64 02/25/19 06:50 Principal Diagnosis Suicide attempt by Ambien overdose Depression not otherwise specified (bipolar disorder versus major depression) Psychiatric Data The patient was hospitalized on the [facility] for 8 days. Prior to that, she was on the hospitalist service for 4 days. Her medications were adjusted: Duloxetine increased to 120 mg daily, olanzapine to 10 mg at bedtime, and buspirone to 15 mg twice daily. Gabapentin was added for chronic pain and anxiety, and metformin for diabetes. She participated in groups and therapy, was able to process recent stressors, and reported improved mood and resolution of suicidal thoughts. She was referred for a blended home health care case manager and had a family meeting with her son, granddaughter, and home health care case manager Vane on 02/21/2019. Housing was discussed, as her family would like her to move out and had been working on locating an apartment, with multiple applications to local facilities. They made a plan for her to move to [facility], and son agreed she could return home briefly in the interim while arranging the move. They offered ongoing support, other ways they could help her settle into her new place. The need for regular psychotherapy was discussed, and an appointment made with Paty Kelley. Safety concerns were discussed due to multiple intentional overdoses, with recommendations that family assist in securing medications and dispensing to her in small amounts so that she would not have access to large amounts of pills and to decrease the risk of a impulsive overdose. The plan to prescribe only 1 week of medications at a time was discussed, given that the patient will be living independently without family in the home to assist her. Day of Discharge Assessment Patient reports her mood is "pretty good," and that she is "ready to go." She denies suicidal thoughts, and is able to review her coping skills and discharge safety plan. She is looking forward to leaving the hospital and spending time with family. She is willing to follow up with outpatient treatment including medication management at [facility], therapy with Paty Kelley, and with her blended home health care case manager. She denies side effects to medications, and reviewed her discharge medication list in detail. She denies any acute safety concerns. Transition of Care Transition Of Care Record: was reviewed with the patient Advance Directives Advance Directives Information Provided: Yes Advance Directives: Yes Mental Health Advance Directive: No Advance Directives on File: No Living Will: No Power of Automobile Damage Field Appraiser: No Advance Directives Reason:: Declines as Mental Health Visit. Risk Factors Assessment Risk factors were mitigated by admission to the inpatient unit, adjusting medications to target mood symptoms, involving her in groups and therapy, working on healthy coping skills and a discharge safety plan, involving her family in a family meeting, working on a safety plan specifically with respect to limiting her access to large amounts of medications, and referring her for outpatient services including therapy, psychiatric care, and case management. The family was also assisted in planning for the patient's moved to an apartment. She has demonstrated improvement in mood, is consistently denying suicidal thoughts, is tending to ADLs independently, and is future oriented. She is taking medications as prescribed and indicates willingness to follow up with outpatient treatment. She is requesting discharge, and that she is no longer at acute risk of harm to herself, can be managed as an outpatient at this time. She does not have risk factors for harm to others. Male: No : Yes Do You Have Access To A Gun?: No Mental Health Diagnoses: Yes Substance Use Disorders: No Previous Attempt: Yes Previous Psychiatric Hospitalization: Yes Hopelessness: Yes Smoker: No Protective Factors Assessment Mormon Beliefs: Yes : No Responsible for Young Children: No Employed: No Supportive Family: Yes Good Rapport with Provider: Yes Tobacco Cessation at Discharge Tobacco Cessation Medication Prescribed at Discharge: Not Applicable/Non-Smoker Total Time Total Time Spent: Greater Than 30 Minutes Total Time Includes: Examination of the patient, Discharge Planning and Medication Reconciliation Discharge Data Lab Results 02/19/19 02/20/19 02/21/19 08:23 08:09 07:55 POC Glucose 141 H 135 H 149 H 02/22/19 02/23/19 02/24/19 08:49 08:31 08:25 POC Glucose 144 H 143 H 148 H 02/25/19 08:36 POC Glucose 141 H Hospital Course (1) Intentional drug overdose: 02/17 - Admitted to a locked inpatient behavioral health unit, on q15 minute safety checks - Encourage medication initiation/adjustments as indicated - Encourage participation in group and recreational therapies - Gather collateral information from outpatient providers - Suggest family meeting to involve outpatient supports in safety planning - Arrange appropriate aftercare 02/18 - Reporting ongoing hopelessness and SI this morning after having to recall information about her suicide attempt - Unable to contract for safety outside of the hospital setting 02/20 - Pt denies overt SI, but admits to hopelessness and significant uncertainty that limits her ability to contract for safety outside of the hospital setting 02/21 -The patient notes that she has not been having thoughts of suicide in the hospital, but says that she cannot say for certain that the thoughts of suicide will not return following discharge, given her chronic pain. -We discussed in some detail my recommendation that she occupy herself with pursuing pain managementwhich may include surgical interventions, nerve blocks, and other non-narcotic interventions. -The patient tells me that she understands why her son and [id number] are reluctant to allow her to live in the house with them, given that they have younger children and they are concerned about the trauma that might be inflicted on the children should she commit suicide in the house where 1 of the children might find her . The patient has, "I am a mother, so I understand why the are taking the position that they are taking." -The patient also agrees with the recommendation that she have other people manage her medications so that she is unlikely to have a stockpile of "14 Ambien pills" available at any given time. 02/22 - Does not admit to suicidal ideation today, but openly reports that she has not ruled out the idea of "taking pills" to overdose - Continue to encourage healthy and effective coping strategies 02/23 - Pt continues to offer vague responses to questions regarding suicidality, and cannot at this time clearly articulate ability to contract for safety outside of the hospital 02/24 - Pt denies active SI at this time, but when asked safety planning questions - she predominantly states "we'll just have to see" and "just take it one day at a time." - She is not able to verbalize a clear plan for what she would do, or who she would call, if she experienced SI while living independently - While she may not be actively suicidal, she is considered to remain at greater risk of harm to self compared to the general population due to several impulsive overdoses and rather significant life changes (2) Mood disorder: 02/17 - Differential diagnosis includes historical diagnosis of bipolar disorder, major depressive disorder, as well as - Continue home medication regimen: duloxetine to be titrated to 60mg (home dose reportedly 90mg); buspirone 10mg BID (home dose reportedly 20mg BID); and olanzapine 5mg qHS (home dose reportedly "either 5 or 10" per patient). - Fasting blood work completed on 02/14 - lipid panel WNL, estimated average glucose and A1c elevated - Coordinate care with outpatient psychiatrist; may need referral for a new provider in light of psychiatrist's assisted - Gather collateral information from family - Encourage attendance of group and recreational programming - Assist with development of healthy coping strategies 02/18 - Continue titration to home medication dosing - will titrate duloxetine to 90mg tomorrow morning, olanzapine to 10mg qHS and continue buspirone at 10mg BID - as mood concerns seem to be more prevalent than anxiety at present - Due to poor sleep (and discontinuation of zolpidem), will increase prn HS dose of hydroxyzine to 100mg. Will also have order available for 100mg of trazodone if hydroxyzine is ineffective - titration of olanzapine may also prove beneficial for sleep 02/19 - Will continue duloxetine 90mg, which was started today - consider titration to 120mg in the next few days - Will increase buspirone to 15mg BID - as patient's primary concern today is anxiety - Continue olanzapine 10mg qHS - Pt did receive hydroxyzine 100mg last evening, in conjunction with titrated dose of olanzapine - reporting improved sleep - Family meeting with son scheduled for 02/21 02/20 - Titrating duloxetine to 120mg daily, starting tomorrow morning - continue remained of psychiatric medications unchanged - Family meeting with son scheduled for 02/21 - Continue to explore housing opportunities, as patient not permitted to return home with her son after discharge 02/21 -The patient's dose of duloxetine has been increased to 120 mg daily. Patient reports that she does believe the duloxetine as well as gabapentin have helped with her chronic pain, but adds "not much." -As noted above, the patient says that she does not feel particularly depressed, as and "sad." Instead, she says that her suicidal thoughts come to her because of her chronic pain, combined with the psychosocial stressor of feeling useless. -As above, we are emphasizing the importance of focusing on pain management as a way of addressing the patient's significant mood alterations. -We have also suggested pet therapy, or even the possibility of acquiring her own pet in her new apartment. 02/22 - Continue medication regimen as above - Continue to encourage group and recreational programming; focus on processing thoughts and feelings related to upcoming transitions - Assist in development of healthy and effective coping strategies - Encourage patient participation in discharge planning, to encourage ownership and autonomy in this next chapter 02/23 - Increase gabapentin to 300mg TID with patient's permission, after discussion of risks, benefits, and potential side effects - Continue with current treatment plan - Continue to encourage participation in group activities and therapeutic interventions 02/24 - Continue current medication regimen - pt reports ongoing "nervousness" in her abdominal region, gabapentin to be titrated for pain as above (which will ideally benefit anxiety as well) - Continue to offer encouragement regarding anticipated life changes and transition to independent living - Continue to encourage participation in groups, as patient has been isolative at times (3) HLD (hyperlipidemia): 02/17 - Continue home dose of simvastatin 40mg qHS - Fasting lipid panel from 02/14 reviewed - all values WNL (4) GERD (gastroesophageal reflux disease): 02/17 - Continue pantoprazole 40mg daily, from the medical floor 02/21 -The patient reports no recent active GERD symptoms (5) Hypothyroidism: 02/17 - Continue home dose of levothyroxine 75mcg daily (6) Diabetes mellitus: 02/17 - Reported on medical floor, recommend following - Estimated average glucose - 171; HgbA1c - 7.6% 02/18 - Will follow blood glucose with daily glucometer checks before breakfast - Continue to follow to determine if addition of medications will be pursued 02/20 - Reviewed persistently elevated blood glucose, and provided basic education on diabetes - patient states she is familiar, as she was previously diagnosed but was able to improve her numbers with diet and exercise - Discussed recommendation to begin metformin, in addition with healthy lifestyle changes in attempts to lower blood glucose. Risks, benefits, and potential side effects of the medication were reviewed. Pt is agreeable with initiating metformin 500mg daily with dinner. - solar sales associate consultation was offered; however, patient declines at this time as she feels she has the necessary tools to make appropriate dietary changes 02/21 -Patient's blood glucose remains elevated today at 149. Metformin will be increased to 500 mg twice a day. - Will scheduled PCP follow-up to discuss medication regimen further after discharge (7) Hypertension: 02/17 - Continue amlodipine 5mg qAM as initiated on the medical floor 02/18 - BP has remained stable since admission to [facility] - Continue to monitor per daily vitals order 02/21 -The patient's pulse is elevated today, but her blood pressure is within normal limits. We will continue to monitor. 02/24 - BP has remained largely within normal limits; pulse mildly elevated - reporting "nervousness" but otherwise asymptomatic Mental Health & Subst Abuse Tx Psychiatrist Name of Psychiatrist: Radha De La Cruz Psychiatrist's Date of Appointment with Psychiatrist: 03/03/19 Time of Appointment with Psychiatrist: 1:00pm Psychiatric Appointment Comment: [address], [place] [address] Therapist Name of Therapist: [facility] - Paty Kelley LCSW Therapist's Date of Therapist Appointment: 03/05/19 Time of Therapist Appointment: 11:00 a.m. Therapy Appointment Comment: [address], [address], [place] [address] Patternmaker Grader Name of Patternmaker Grader: [facility] Vane Phone Number for Patternmaker Grader: Time of Appointment with Patternmaker Grader: will contact you to schedule Case Management Appointment Comment: [address] [facility], [address], [place] [address] Post Discharge Appointments Primary Care Physician Name Of Family Doctor: Dr. Steph Bella Primary [facility] Date of Appointment with PCP: 03/04/19 Time of Appointment with PCP: 1:15pm Provider Appointment Comment: [address], [place] [address] Smoking Cessation Counseling Tobacco Cessation Medication Prescribed at Discharge: Not Applicable/Non-Smoker Contact Information Discharge Discharge Address: [address] [place] [address], [facility] [place] [address] Discharge Plan Discharge Items Patient Disposition: Home - Self-Care Reason For Visit: DEPRESSION Discharge Diagnosis: Depression Suicide attempt by overdose Activity: Per Instructions section Non-emergency contact: Primary Care Provider, Psychiatrist, Therapist and A/C Technician Call non-emergency contact if: you have any medication questions and your symptoms worsen Follow-up/Referrals: PCP,NO [Primary Care Provider] - Diet: Regular Addtl Attending Provider Instructions: SPECIAL CARE INSTRUCTIONS: 1. Follow through with your scheduled aftercare appointments. If unable to keep an appointment, please call to reschedule. 2. Take your medication only as prescribed. Medication should not be changed or stopped without the approval of your doctor. In the event of worsening symptoms or concerns about side effects, contact your doctor immediately. We have recommended that your medications at home be kept locked and secured, and dispensed daily, to decrease the risk of impulsive overdose. 3. Utilize new healthy coping skills, anger management skills, and stress management skills learned during your hospitalization. Journal feelings and process them with a support person. Identify stressors or situations that may result in relapse, deterioration or inappropriate behaviors and develop a plan to deal with those issues. 4. If your coping skills are ineffective and you are in crisis, contact your outpatient providers for direction. If unable to reach your providers, please call the CAN HELP LINE AT or go to the closest Emergency Room. 5. Avoid alcohol and un-prescribed drugs. 6. You have been provided with the Mental Health Advance Directives Pamphlet for your review. AFTERCARE APPOINTMENTS: * Please call your insurance company prior to your scheduled appointment to confirm your aftercare providers are covered. Take your insurance information to your appointments. WHO TO CALL AND WHEN: Medical Emergencies: For questions or emergencies related to your hospital stay, please contact the Inpatient Behavioral Health Unit at [phone]. A document examiner is on-call 04/12 for the Behavioral Health Unit for emergencies At any time you feel your situation is an emergency, you may also call 911 immediately. Your Doctors Instructions noted above were prepared by provider Ansley Christopher MD. Pending Studies at Discharge: No Stand-Alone Forms: My [facility] Medications and DC Order Prescriptions: New buspirone 15 mg Tablet 15 mg PO BID17 Qty: 16 RF: 0 duloxetine 60 mg capsule,delayed release(DR/EC) 120 mg PO DAILY Qty: 16 RF: 0 olanzapine 10 mg Tablet 10 mg PO HS Qty: 8 RF: 0 gabapentin 300 mg Capsule 300 mg PO TID Qty: 24 RF: 0 metformin 500 mg tablet 500 mg PO BIDM Qty: 16 RF: 0 Continued levothyroxine 75 mcg Capsule 75 mcg PO QAM Qty: 0 RF: 0 omeprazole 40 mg Capsule,Delayed Release(Dr/Ec) 40 mg PO QAM Qty: 0 RF: 0 simvastatin 40 mg Tablet 40 mg PO HS Qty: 0 RF: 0 aspirin 81 mg Tablet,Delayed Release (Dr/Ec) 81 mg PO DAILY RF: 0 albuterol sulfate [ProAir HFA] 90 mcg/actuation Hfa Aerosol Inhaler 2 puff INHALATION Q4H PRN (Reason: Wheezing) RF: 0 cholecalciferol (vitamin D3) [Vitamin D3] 2,000 unit Capsule 2,000 unit PO DAILY RF: 0 oxybutynin chloride 10 mg tablet extended release 24hr 10 mg PO DAILY RF: 0 sumatriptan succinate 25 mg tablet 25 mg PO DIRECTED MDD 200 MG/DAY PRN (Reason: Migraine Headache) RF: 0 benzonatate [Tessalon Perles] 100 mg capsule 100 mg PO TID PRN (Reason: Cough) RF: 0 amlodipine [Norvasc] 5 mg Tablet 5 mg PO QAM 30 Days Qty: 30 RF: 1 Discontinued buspirone 5 mg Tablet 5 mg PO BID17 Qty: 0 RF: 0 olanzapine 2.5 mg Tablet 2.5 mg PO HS Qty: 0 RF: 0 duloxetine 30 mg Capsule,Delayed Release(Dr/Ec) 30 mg PO QAM Qty: 0 RF: 0 Discharge Orders: Discharge Order (Routine); Ordered 02/25/19 Ordered By: Ansley Christopher Admission Data Admit Date/Time: 02/17/19 13:50 Attending Provider: Ansley Christopher Admit Provider: Ansley Christopher Primary Care Provider: PCP,NO Other Interventions: PSY Interdisciplinary Discharge Planning Last Done: 02/25/19 09:24 Coding Level of Care Code 09050 D/C day mgmt > 30 min Diagnoses Intentional drug overdose T50.902A Mood disorder F39 HLD (hyperlipidemia) E78.5 Hyperlipidemia type: unspecified GERD (gastroesophageal reflux disease) K21.9 Esophagitis presence: esophagitis presence not specified Hypothyroidism E03.9 Hypothyroidism type: unspecified Diabetes mellitus E11.9 Diabetes mellitus complication status: without complication Diabetes mellitus jail insulin use: without jail use Diabetes mellitus type: type 2 Hypertension I10 Hypertension type: essential hypertension
[2019-02-25] MEDS ORDERED: DESTROY THIS MEDICATION SCH (12:00)
[2019-02-25] MEDS: ACETAMINOPHEN 325 MG TAB PO PRN (14:13)
[2019-02-25] MEDS: CAPSAICIN CR 0.075% 60 GM TUBE EXT PRN (14:18)
[2019-02-25] MEDS ORDERED: DESTROY THIS MEDICATION ONE (14:35)
== END 2019-02-25 16:45 | disposition home or self-care (01) | DRG 885 ==
LOC: 3S 13:50